=== PATIENT | female | born 1935 | race Caucasian/White ===

== ENCOUNTER 2020-06-26 06:48 | Observation (INO) | payer MEDICARE, SELFPAY ==
[2020-06-26] VITALS (9 sets, daily range): BP systolic 125–151; BP diastolic 44–53; PULSE 70–80; RESP 16–19; TEMP 36.4–37.7; O2SAT 93–97; BMI 43.1
--- NOTE | 2020-06-26 06:56 | CT_ITS ---
EXAMINATION: CT HIP WITHOUT CONTRAST, LEFT CLINICAL INFORMATION: Fall and pain. COMPARISON: None TECHNIQUE: Multidetector volumetric CT acquisition of the left hip was obtained from the mid pelvis to the subtrochanteric proximal femur with sagittal and coronal reformations obtained. This CT examination was performed using dose optimization techniques as appropriate, variously including the following: *Automated exposure control *Adjustment of mA and/or kV according to patient size (this includes techniques or standardized protocols for targeted exams where dose is matched to indication/reason for exam; i.e. extremities or head) *Use of iterative reconstruction technique DLP: 249 mGy-cm FINDINGS: BONES: Evaluation is difficult given degree of osteopenia with accentuation of the trabecular markings. There is a suspicion of a subtle nondisplaced hairline fracture at the left femoral neck/posterior femoral head, best seen on axial series 2, image 42. This is difficult to confirm on the additional series. There is only a trace amount of fluid in the hip joint, likely physiologic. No significant hip joint effusion or surrounding soft tissue fat stranding/edema is noted. A subtle cortical irregularity at the anterior basicervical neck region is felt to represent mild degenerative change. There are degenerative changes in the left sacroiliac joint, at the pubic symphysis, and left hip joint. OTHER: Sigmoid colonic diverticulosis partially included. Bladder decompressed and suboptimally assessed, but grossly unremarkable to the extent seen. Included uterine contour is difficult to separate from adjacent small bowel loops and is not adequately assessed. No pelvic free fluid or left inguinal/left pelvic sidewall adenopathy.. CT/CT hip LT wo con IMPRESSION: Difficult exam due to degree of osteopenia. There is suspicion of a subtle nondisplaced hairline fracture at the left femoral neck/posterior femoral head region. Recommend follow-up MRI scan of the left hip to confirm this impression.
--- NOTE | 2020-06-26 07:04 | ED_ITS ---
HPI - Fall General Chief Complaint: Fall Stated Complaint: fall Time Seen by Provider: 06/26/20 06:55 Source: patient and testing and regulating chief Mode of arrival: EMS Limitations: no limitations History of Present Illness HPI Narrative: 84-year-old female brought in by ambulance, patient ruled out of bed yesterday, according to the patient's story patient was able to ambulate yesterday, but this morning patient is complaining of severe pain in the left hip area and unable to bear weight and ambulate. complaint: fall Onset (ago): hour(s) (14) Fall from: out of bed Fall witnessed: yes, by family Place fall occurred: home Loss of consciousness: none Prolonged down time: unclear Symptoms prior to fall: none Related Data Allergies Allergy/AdvReac Type Severity Reaction Status Date / Time Fish Containing Products Allergy Mild RASH Unverified 05/13/20 15:54 Penicillins Allergy Mild RASH Unverified 05/13/20 15:54 seafood Allergy Unknown Uncoded 06/10/19 00:00 Review of Systems Review of Systems: All other systems are reviewed and are negative Constitutional: Reports as per HPI and Reports no additional constitutional complaints Eyes: Reports as per HPI and Reports no additional eye complaints Reports system reviewed and no additional complaints, except as documented Cardiovascular: Reports as per HPI and Reports no additional cardiovascular complaints Respiratory: Reports as per HPI and Reports no additional respiratory complaints Gastrointestinal: Reports as per HPI and Reports no additional gastrointestinal complaints Genitourinary: Reports no additional female genitourinary complaints Musculoskeletal: Reports no additional musculoskeletal complaints Skin/Breast: Reports system reviewed and no additional complaints, except as docu Psychiatric: Reports no additional psychiatric complaints Endocrine: Reports no additional endocrine complaints Hematologic/Lymphatic: Reports no additional hematologic/lymphatic complaints Allergic/Immunologic: Reports no additional allergic/immunologic complaints Reports system reviewed and no additional complaints, except as documented and Reports Abnormal speech present [facility] Social History Social History Alcohol intake: never Smoking Status: Never smoker Smoked in Last 30 Days: No Use of substances other than those prescribed or required for medical reasons: No Advance Directives: No Advance Directives Information Provided: No Physical Exam Vital Signs: Vital Signs: Vital Signs Temp Pulse Resp BP Pulse Ox 06/26/20 10:00 70 16 97 06/26/20 06:57 74 16 142/53 H 94 06/26/20 06:54 98.9 F 77 16 142/53 H 94 Body Mass Index 43.1 vital signs have been reviewed as normal and appeared to be correct. Blood pressure Slightly elevated. Heart rate normal. Respiration rate normal. Temperature normal. Oxygen saturation normal. Appearance: Alert. Oriented X3. No acute distress. Head: Normal external exam. Normocephalic. Atraumatic. No Mitchell signs noted. No raccoon eyes noted Eyes: PERRLA. EOMI. Conjunctiva and sclera normal. Eyelids normal. ENT: EAC normal. TM's Normal. Pharynx normal. Uvula midline. Moist mucous membranes. No trismus noted. No drooling noted. No muffled voice noted. Neck: Normal inspection. Neck supple. FROM. No adenopathy. Thyroid Normal. No meningeal signs. No neck mass noted. CVS: Normal heart rate and rhythm. Heart sound normal. No murmurs noted. Pulses normal throughout. Respiratory: No respiratory distress. Painless inspiration. Breath sounds normal. No wheezes/rales/rhonchi noted. Chest nontender. No accessory muscle usage noted or decreased air movement noted. Abdomen: Soft and nontender. Bowel sounds normal in all 4 quadrants. No distention noted. No organomegaly noted. No visible injury noted. Back: No CVA tenderness. Full range of motion noted. Skin: Skin warm and dry. Normal skin color. Normal skin turgor. No rashes/lesions/lacerations noted. Extremities: No lower extremity edema. Extremities exhibit normal range of motion. Left hip mild tenderness, no deformity, no leg rotation, neurovascularly intact. Neuro: Oriented X 3. No motor deficit. No sensory deficit. Reflexes normal. Course Course Course Narrative: 84 years old female who sustained a mechanical fall from bed yesterday, As reported by the patient no head injury, no neck pain, not taking blood thinner.patient initially was able to ambulate but this morning due to severe pain in the left side she is not able to ambulate. Because the patient heavyset and difficult to get x-ray will consider CT of the pelvis and left hip, there is a question from the family of UTI will check urine. Will reassess. MDM - Fall MDM Narrative Medical decision making narrative: assessment and plan. 84-year-old female sustained mechanical fall yesterday, presented with left hip pain and unable to bear weight, CT of the hip and pelvis suspicious for hairline fracture of her left femoral neck, the case discussed with orthopedic on-call CAMRON Amaya/Dr. Pedraza who reviewed the x-ray CT recommended to admit to Medicine with orthopedic consultation. Patient complained of some burning sensation with odor urine, UA is showing UTI, will start patient on ceftriaxone. Lab Data Result diagrams: 06/26/20 07:49 06/26/20 07:49 Labs: Lab Results 06/26/20 06/26/20 06/26/20 Range/Units 07:45 07:49 07:49 WBC 11.2 H (4.8-10.8) X10*3/uL RBC 3.95 L (4.20-5.50) X10*6/uL Hgb 11.2 L (12.0-16.0) g/dl Hct 35.0 L (37-47) % MCV 88.6 (80-98) fL MCH 28.4 (27.0-33.0) pg MCHC 32.0 (31.0-35.0) g/dl RDW 14.0 (11.0-16.0) % Plt Count 232 (160-400) X10*3/uL MPV 11.3 (9.4-12.3) fL Immature Gran % (Auto) 0.7 H (0.0-0.4) % Neut % (Auto) 77.2 H (45-73) % Lymph % (Auto) 14.9 L (20-40) % [place] % (Auto) 7.1 (2-11) % Eos % (Auto) 0.1 (0-4) % Baso % (Auto) 0.0 (0-2) % Lymph # (Auto) 1.7 (1.2-4.9) X10*3/uL [place] # (Auto) 0.8 (0.1-1.2) X10*3/uL Eos # (Auto) 0.0 (0.0-0.4) X10*3/uL Baso # (Auto) 0.0 (0.0-0.2) X10*3/uL Abs Immat Gran (auto) 0.08 H (0.00-0.03) X10*3/uL Absolute Neuts (auto) 8.7 H (2.0-8.3) X10*3/uL Absolute Nucleated RBC 0.000 (0.0-0.012) X10*3/uL Nucleated RBC % (auto) 0.0 (0.0-0.2) /100WBC Sodium 139 (135-145) mmol/L Potassium 4.2 (3.3-5.1) mmol/l Chloride 105 (96-108) mmol/L Carbon Dioxide 26 (22-29) mmol/L Anion Gap 12 (12-20) BUN 13 (9-16) mg/dL Creatinine 0.90 (0.5-1.4) mg/dL Estim Creat Clear Calc 50.3 Estimated GFR 60 Random Glucose 119 H (60-115) mg/dL Calcium 7.2 L (8.4-10.2) mg/dL Urine Color YELLOW Urine Appearance HAZY Urine pH 5.5 (5.0-8.0) Ur Specific [place] >= 1.030 H (1.005-1.025) Urine Protein 2+ H (NEG-TRACE) MG/DL Urine Glucose (UA) NEG (NEG) MG/DL Urine Ketones NEG (NEG) MG/DL Urine Blood 1+ H (NEG) Urine Nitrite POS H (NEG) Ur Leukocyte Esterase NEG (NEG) Urine RBC 1-4 (0) /HPF Urine WBC 5-9 H (0-4) /HPF Ur Squamous Epith Cells 1+ /LPF Urine Bacteria 3+ /LPF Hyaline Casts 1-4 /LPF Granular Casts 1-4 /LPF Imaging Data Pelvis/left hip CT: Radiologist's impression: Difficult exam due to degree of osteopenia. There is suspicion of a subtle nondisplaced hairline fracture at the left femoral neck/posterior femoral head region. Recommend follow-up MRI scan of the left hip to confirm this impression. Discharge Plan Discharge Clinical Impression: Fall Qualifiers: Encounter type: initial encounter Qualified Code(s): W19.XXXA - Unspecified fall, initial encounter Closed fracture of left hip Qualifiers: Encounter type: initial encounter Qualified Code(s): S72.002A - Fracture of unspecified part of neck of left femur, initial encounter for closed fracture Patient Disposition: Admitted As Inpatient
[2020-06-26 07:56] LABS: MANUAL DIFF FLAG NO
[2020-06-26 07:58] LABS: Eosinophils Percent Auto 0.1 % (0-4); Hemoglobin 11.2 g/dl (12.0-16.0); Imm Gran Abs Auto 0.08 X10*3/uL (0.00-0.03); Imm Gran Pct Auto 0.7 % (0.0-0.4); Lymphocytes Absolute Auto 1.7 X10*3/uL (1.2-4.9); Lymphocytes Percent Auto 14.9 % (20-40); Mean Corpuscular Hemoglobin 28.4 pg (27.0-33.0); Mean Corpuscular Volume 88.6 fL (80-98); Mean Platelet Volume 11.3 fL (9.4-12.3); Monocytes Absolute Auto 0.8 X10*3/uL (0.1-1.2); Monocytes Percent Auto 7.1 % (2-11); Neutrophils Absolute Auto 8.7 X10*3/uL (2.0-8.3); Neutrophils Percent Auto 77.2 % (45-73); Platelet Count 232 X10*3/uL (160-400); Red Blood Count 3.95 X10*6/uL (4.20-5.50); White Blood Count 11.2 X10*3/uL (4.8-10.8)
[2020-06-26 08:01] LABS: Glucose Urine UA NEG (NEG); Leukocyte Esterase Urine NEG (NEG); Nitrite Urine POS (NEG); PH 5.5 (5.0-8.0); Specific Gravity - Urine >= 1.030 (1.005-1.025); Urine Blood 1+ (NEG); Urine Ketones NEG (NEG); Urine Protein 2+ MG/DL (NEG-TRACE)
[2020-06-26 08:06] LABS: Appearance Urine HAZY; Color Urine YELLOW
[2020-06-26 08:17] LABS: Anion Gap 12 (12-20); Blood Urea Nitrogen 13 mg/dL (9-16); Calcium 7.2 mg/dL (8.4-10.2); Carbon Dioxide 26 mmol/L (22-29); Chloride 105 mmol/L (96-108); Creatinine Clr Calc Pharmacy 50.3; Estimated Glomerular Filt Rate 60; Glucose Random 119 mg/dL (60-115); Potassium 4.2 mmol/l (3.3-5.1); Sodium 139 mmol/L (135-145)
[2020-06-26 08:21] LABS: Bacteria Urine 3+ /LPF; Squamous Epithelial Cell Urine 1+ /LPF
--- NOTE | 2020-06-26 09:18 | XR_ITS ---
EXAMINATION: XR HIP, LEFT CLINICAL INFORMATION: Fall. Question of left hip fracture. COMPARISON: CT scan of the left hip performed earlier same day TECHNIQUE: Two views of the left hip. Single view of the pelvis FINDINGS: Left hip: No fracture identified. Mild arthrosis with mild joint space narrowing and small subchondral cyst in the superior acetabulum. Surrounding soft tissues unremarkable. Pelvis: Left hip as above. Remaining bones and joints and soft tissues in the pelvis are normal. There is spondylosis of the partially visualized lumbar sacral spine with degenerative disc changes and facet arthrosis XR/XR hip LT w PEL1V IMPRESSION: The prior CT is also reviewed. I do not see a fracture on the radiograph. There is mild arthrosis of the left hip If there continues to be clinical suspicion for fracture consider follow-up MRI to confirm the subtle findings on CT. No acute abnormality of the pelvis. Spondylosis of the partially visualized lumbar sacral spine.
[2020-06-26] MEDS: cefTRIAXone sodium 1 GM in 0.9 % Sodium Chloride 50 ML IV (12:17)
--- NOTE | 2020-06-26 13:21 | PM.IMHP ---
History of Present Illness Date of Service: 06/26/20 Chief Complaint: Fall and Hip pain 84 year old female with HLD on Lipitor, HTN on Diltiazem and Lisinopril, also on Lasix for possible heart failure, seizure desorder on Keppra. She fell yesterday and was not having pain but today started having pain that is severe xray and CT both show no fracture PMFSH Medical History HLD (hyperlipidemia) HTN (hypertension) Overactive bladder Family History Other Diabetes Social History Alcohol intake: never Smoking Status: Never smoker Smoked in Last 30 Days: No Patient Interested in Nicotine Replacement: No Patient Given Instructions on How to Stop Smoking: No Second Hand Smoke Exposure: No Use of substances other than those prescribed or required for medical reasons: No Advance Directives: No Advance Directives Information Provided: No Meds Allergies Allergy/AdvReac Type Severity Reaction Status Date / Time Fish Containing Products Allergy Mild RASH Verified 06/26/20 22:27 Penicillins Allergy Mild RASH Verified 06/26/20 22:27 seafood Allergy Mild Rash Uncoded 06/26/20 22:27 Home Medications Medication Instructions Recorded Confirmed Type Artificial Tears([id number]) 1 drp OPHTHALMIC (EYE) BID-TID 06/26/20 06/26/20 History Myrbetriq 1 tab PO DAILY 06/26/20 06/26/20 History atorvastatin 1 tab PO DAILY 06/26/20 06/26/20 History diltiazem HCl 1 cap PO DAILY 06/26/20 06/26/20 History furosemide 1 tab PO BID 06/26/20 06/26/20 History levetiracetam 1 tab PO BID 06/26/20 06/26/20 History lisinopril 1 tab PO DAILY 06/26/20 06/26/20 History Physical Exam Vital Signs and Narrative: Vital Signs: Last Vital Signs Temp 98.2 F 06/26/20 12:00 Pulse 74 06/26/20 12:00 Resp 16 06/26/20 12:00 BP 131/53 L 06/26/20 12:00 Pulse Ox 97 06/26/20 12:00 Body Mass Index 43.1 Results Labs Labs: Laboratory Tests 06/26/20 06/26/20 06/26/20 07:45 07:49 07:49 WBC 11.2 H RBC 3.95 L Hgb 11.2 L Hct 35.0 L MCV 88.6 MCH 28.4 MCHC 32.0 RDW 14.0 Plt Count 232 MPV 11.3 Immature Gran % (Auto) 0.7 H Neut % (Auto) 77.2 H Lymph % (Auto) 14.9 L [place] % (Auto) 7.1 Eos % (Auto) 0.1 Baso % (Auto) 0.0 Lymph # (Auto) 1.7 [place] # (Auto) 0.8 Eos # (Auto) 0.0 Baso # (Auto) 0.0 Abs Immat Gran (auto) 0.08 H Absolute Neuts (auto) 8.7 H Absolute Nucleated RBC 0.000 Nucleated RBC % (auto) 0.0 Sodium 139 Potassium 4.2 Chloride 105 Carbon Dioxide 26 Anion Gap 12 BUN 13 Creatinine 0.90 Estim Creat Clear Calc 50.3 Estimated GFR 60 Random Glucose 119 H Calcium 7.2 L Urine Color YELLOW Urine Appearance HAZY Urine pH 5.5 Ur Specific [place] >= 1.030 H Urine Protein 2+ H Urine Glucose (UA) NEG Urine Ketones NEG Urine Blood 1+ H Urine Nitrite POS H Ur Leukocyte Esterase NEG Urine RBC 1-4 Urine WBC 5-9 H Ur Squamous Epith Cells 1+ Urine Bacteria 3+ Hyaline Casts 1-4 Granular Casts 1-4 Assessment and Plan (1) HLD (hyperlipidemia): Status: Acute (2) HTN (hypertension): Status: Inactive (3) Overactive bladder: Status: Inactive (4) Fall: Qualifiers: Encounter type: initial encounter Qualified Code(s): W19.XXXA - Unspecified fall, initial encounter Status: Acute (5) Closed fracture of left hip: Qualifiers: Encounter type: initial encounter Qualified Code(s): S72.002A - Fracture of unspecified part of neck of left femur, initial encounter for closed fracture Status: Acute (6) Acute UTI: Status: Acute 84 year female with fall and left hairline hip fracture on CT 1. Suspected Left hairline hip fracture -Pain controll -Ortho consult -May need MRI to further eval 2. HTN--continue Lisinopril and Diltiazem 3. HLD--Lipitor 4. Overactive bladder--Myrbetriq 5.
--- NOTE | 2020-06-26 15:25 | PC.NURSE ---
pt offers no complaints at this time. awaiting bed assignment.
[2020-06-26] MEDS: 0.9 % Sodium Chloride Flush 3 ML SYRINGE IVFLUSH ×2 (18:46→20:54)
[2020-06-26] MEDS: levETIRAcetam 500 MG TABLET PO (20:41)
[2020-06-26] MEDS: Heparin Sodium,Porcine 5,000 UNIT/ML VIAL 5000 UNIT SUBCUT (20:42)
[2020-06-26] MEDS: Furosemide 40 MG TABLET PO (20:42)
[2020-06-26] MEDS: Flu Vacc QS2020-21(6mos up)/PF 0.5 ML SYRINGE IM (20:44)
[2020-06-26] MEDS: Artificial Tears 15 ML DROPS 1 DROP EYE-BOTH (22:19)
[2020-06-27 03:30] VITALS: BP 142/59; PULSE 80; RESP 19; TEMP 36.7; O2SAT 96
[2020-06-27] MEDS: 0.9 % Sodium Chloride Flush 3 ML SYRINGE IVFLUSH ×3 (07:29→20:47)
[2020-06-27 08:00] VITALS: BP 136/58; PULSE 80; RESP 16; TEMP 36.9; O2SAT 94
[2020-06-27 08:46] VITALS: BP 136/58; PULSE 80
[2020-06-27] MEDS: lisinopriL 40 MG TABLET PO (08:46)
[2020-06-27] MEDS: Mirabegron 25 MG TAB.ER.24H PO (08:46)
[2020-06-27] MEDS: Atorvastatin Calcium 20 MG TABLET PO (08:46)
[2020-06-27] MEDS: dilTIAZem HCL CD 180 MG CAP.ER.24H 360 MG PO (08:46)
[2020-06-27] MEDS: Heparin Sodium,Porcine 5,000 UNIT/ML VIAL 5000 UNIT SUBCUT ×2 (08:46→19:12)
[2020-06-27] MEDS: Artificial Tears 15 ML DROPS 1 DROP EYE-BOTH ×3 (08:47→20:46)
[2020-06-27] MEDS: Furosemide 40 MG TABLET PO ×2 (08:47→20:46)
[2020-06-27] MEDS: levETIRAcetam 500 MG TABLET PO ×2 (08:47→20:46)
[2020-06-27 12:00] VITALS: BP 140/57; PULSE 74; RESP 16; TEMP 37.1; O2SAT 91
--- NOTE | 2020-06-27 13:01 | HO.PM.IMPN ---
Subjective Subjective Date of Service: 06/27/20 Interval History: some pain, but dont need pain med adjustement Cardiovascular Cardiovascular: Reports no additional cardiovascular complaints Respiratory Respiratory: Reports no additional respiratory complaints Physical Exam Vital Signs: Vital Signs: Vital Signs Temp Pulse Resp BP Pulse Ox 06/27/20 12:00 98.8 F 74 16 140/57 H 91 L 06/27/20 08:46 80 136/58 L 06/27/20 08:00 98.4 F 80 16 136/58 L 94 06/27/20 03:30 98.1 F 80 19 142/59 H 96 06/26/20 23:24 97.6 F 80 19 151/46 H 94 06/26/20 20:00 98.6 F 80 16 125/50 L 93 06/26/20 15:21 99.9 F 06/26/20 15:20 80 16 141/44 H 94 Body Mass Index 43.1 General: AO X 3, no acute distress Resp: CTA bilateral CVS: S1,S2,RRR GI: soft, non tender, non distended Neuro: motor grossly intact Psych: appropriate affect Objective Data Current Medications Generic Name Dose Route Start Last Admin Trade Name Freq PRN Reason Stop Dose Admin Acetaminophen 650 mg 06/26/20 18:07 Acetaminophen Supp 650 Mg Supp.Rect [place] Q6H PRN Pain, Mild (Pain Scale 1-3) Artificial Tears 1 drop 06/26/20 21:00 06/27/20 08:47 Artificial Tears 15 Ml Drops EYE-BOTH 1 drop TID LUIS ARMANDO Administration Atorvastatin Calcium 20 mg 06/27/20 09:00 06/27/20 08:46 Atorvastatin Calcium 20 Mg Tablet PO 20 mg DAILY LUIS ARMANDO Administration Diltiazem HCl 360 mg 06/27/20 09:00 06/27/20 08:46 Diltiazem Hcl Cd 180 Mg Cap.Er.24h PO 360 mg DAILY LUIS ARMANDO Administration Furosemide 40 mg 06/26/20 21:00 06/27/20 08:47 Furosemide 40 Mg Tablet PO 40 mg BID LUIS ARMANDO Administration Protocol Heparin Sodium (Porcine) 5,000 unit 06/26/20 20:00 06/27/20 08:46 Heparin Sodium,Porcine 5,000 Unit/Ml Vial SUBCUT 5,000 unit Q12H LUIS ARMANDO Administration Levetiracetam 500 mg 06/26/20 21:00 06/27/20 08:47 Levetiracetam 500 Mg Tablet PO 500 mg BID LUIS ARMANDO Administration Lisinopril 40 mg 06/27/20 09:00 06/27/20 08:46 Lisinopril 40 Mg Tablet PO 40 mg DAILY LUIS ARMANDO Administration Protocol Magnesium Hydroxide 30 ml 06/26/20 18:07 Milk Of Magnesia 30 Ml Oral.Susp PO DAILY PRN Constipation Mirabegron 25 mg 06/27/20 09:00 06/27/20 08:46 Mirabegron 25 Mg Tab.Er.24h PO 25 mg DAILY LUIS ARMANDO Administration Sodium Chloride 3 ml 06/26/20 18:07 06/27/20 07:29 0.9 % Sodium Chloride Flush 3 Ml Syringe IVFLUSH 3 ml QSHIFT LUIS ARMANDO Administration Labs CBC & Chem 7: 06/26/20 07:49 06/26/20 07:49 Microbiology Microbiology Results: Microbiology 06/26/20 Unknown Urine Catheterized - Straight Catheter Urine Culture - Preliminary Gram negative leticia Assessment and Plan (1) HLD (hyperlipidemia): Status: Acute (2) HTN (hypertension): Status: Inactive (3) Overactive bladder: Status: Inactive (4) Fall: Status: Acute (5) Closed fracture of left hip: Status: Acute (6) Acute UTI: Status: Acute Assessment and Plan: 84 year female with fall and left hairline hip fracture on CT Suspected Left hairline hip fracture -Pain controll -Ortho consult -May need MRI to further eval nwb for now HTN--continue Lisinopril and Diltiazem HLD--Lipitor Overactive bladder--Myrbetriq
[2020-06-27 15:30] VITALS: BP 146/58; PULSE 75; RESP 17; TEMP 36.3; O2SAT 92
[2020-06-27 19:27] VITALS: BP 127/56; PULSE 79; RESP 18; TEMP 36.3; O2SAT 94
[2020-06-28] VITALS (8 sets, daily range): BP systolic 134–164; BP diastolic 54–64; PULSE 66–78; RESP 18–19; TEMP 36.4–37.2; O2SAT 92–98; BMI 43.1
--- NOTE | 2020-06-28 | MR_ITS ---
EXAMINATION: MR HIP WITHOUT CONTRAST, LEFT CLINICAL INFORMATION: Hairline fracture. Fall. Left hip pain. COMPARISON: None TECHNIQUE: MRI of the left hip was obtained using routine sequences on a high-field magnet. FINDINGS: There is no abnormal signal seen within the left femoral head, neck, or the proximal segments to suspect any edema either from fracture or underlying inflammatory process. There is minimal joint fluid within normal limits. The femoral head is round with normal signal. No deformity involving the femoral head. The acetabulum has a normal signal without any fracture line. No abnormal signal is visualized within the labrum. Partially visualized right hip and the pelvis appear unremarkable. Soft tissues are normal. MR/MR hip LT wo con IMPRESSION: No visible left hip fracture or bone marrow edema seen. There is no dislocation either.
--- NOTE | 2020-06-28 | XR_ITS ---
EXAMINATION: XR SKULL CLINICAL INFORMATION: Evaluate for foreign body COMPARISON: Previous head CT April 2013 and brain MRA July 2014 TECHNIQUE: 5 views of the skull were obtained. FINDINGS: There is a radiopaque foreign body in the right perisellar region. This is unchanged from previous head CT April 2013 and is suggestive of aneurysm coil. No other radiopaque foreign body is seen. Bony structures are unremarkable. Visualized sinuses are clear. 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
[2020-06-28] MEDS: 0.9 % Sodium Chloride Flush 3 ML SYRINGE IVFLUSH ×3 (07:12→23:46)
[2020-06-28] MEDS: Mirabegron 25 MG TAB.ER.24H PO (07:12)
[2020-06-28] MEDS: lisinopriL 40 MG TABLET PO (07:13)
[2020-06-28] MEDS: Atorvastatin Calcium 20 MG TABLET PO (07:13)
[2020-06-28] MEDS: levETIRAcetam 500 MG TABLET PO ×2 (07:13→20:18)
[2020-06-28] MEDS: dilTIAZem HCL CD 180 MG CAP.ER.24H 360 MG PO (07:14)
[2020-06-28] MEDS: Heparin Sodium,Porcine 5,000 UNIT/ML VIAL 5000 UNIT SUBCUT ×2 (07:14→20:17)
[2020-06-28] MEDS: Artificial Tears 15 ML DROPS 1 DROP EYE-BOTH ×3 (07:15→20:19)
[2020-06-28] MEDS: Furosemide 40 MG TABLET PO ×2 (07:16→20:18)
--- NOTE | 2020-06-28 09:26 | MHC.CM.PN ---
CONVERSATION WITH DAUGHTER (VIA [employer]) PATIENT LIVES WITH SPOUSE, AND HAS A CONCRETE ENGINEERING TECHNICIAN DIRECTOR PAID MEDIA. PATIENT RELIES ON A WALKER AND CANE. RN VISITS OCCUR [id number], OR OVER THE PHONE NEEDED. SON (DIRECTOR PAID MEDIA) DRIVES FOR PATIENT. HUNTER DISCUSSED OVER PHONE. COPY LEFT WITH PATIENT WITH PERMISSION. CONTACT CARD FOR THIS SALES SUPERINTENDENT LEFT IN THE EVENT THAT THERE ARE ADDITIONAL QUESTIONS. CASE MANAGEMENT FOLLOWING FOR DC PLANS. HUNTER 06/28 IN CHART. IMM ADDENDUM COMPLETED BUT DONE IN ERROR, PATIENT IS OBSERVATION STATUS
--- NOTE | 2020-06-28 09:33 | HO.PM.IMPN ---
Subjective Subjective Date of Service: 06/28/20 Interval History: no complaints Physical Exam Vital Signs: Vital Signs: Vital Signs Temp Pulse Resp BP Pulse Ox 06/28/20 07:35 97.6 F 71 18 136/56 L 93 06/28/20 03:43 98.5 F 71 18 143/56 H 93 06/28/20 00:00 97.8 F 78 18 151/58 H 92 06/27/20 19:27 97.3 F 79 18 127/56 L 94 06/27/20 15:30 97.4 F 75 17 146/58 H 92 06/27/20 12:00 98.8 F 74 16 140/57 H 91 L Body Mass Index 43.1 General: AO X 3, no acute distress Resp: CTA bilateral CVS: S1,S2,RRR GI: soft, non tender, non distended Neuro: motor grossly intact Psych: appropriate affect Objective Data Current Medications Generic Name Dose Route Start Last Admin Trade Name Freq PRN Reason Stop Dose Admin Acetaminophen 650 mg 06/26/20 18:07 Acetaminophen Supp 650 Mg Supp.Rect [place] Q6H PRN Pain, Mild (Pain Scale 1-3) Artificial Tears 1 drop 06/26/20 21:00 06/28/20 07:15 Artificial Tears 15 Ml Drops EYE-BOTH 1 drop TID LUIS ARMANDO Administration Atorvastatin Calcium 20 mg 06/27/20 09:00 06/28/20 07:13 Atorvastatin Calcium 20 Mg Tablet PO 20 mg DAILY LUIS ARMANDO Administration Diltiazem HCl 360 mg 06/27/20 09:00 06/28/20 07:14 Diltiazem Hcl Cd 180 Mg Cap.Er.24h PO 360 mg DAILY LUIS ARMANDO Administration Furosemide 40 mg 06/26/20 21:00 06/28/20 07:16 Furosemide 40 Mg Tablet PO 40 mg BID LUIS ARMANDO Administration Protocol Heparin Sodium (Porcine) 5,000 unit 06/26/20 20:00 06/28/20 07:14 Heparin Sodium,Porcine 5,000 Unit/Ml Vial SUBCUT 5,000 unit Q12H LUIS ARMANDO Administration Levetiracetam 500 mg 06/26/20 21:00 06/28/20 07:13 Levetiracetam 500 Mg Tablet PO 500 mg BID LUIS ARMANDO Administration Lisinopril 40 mg 06/27/20 09:00 06/28/20 07:13 Lisinopril 40 Mg Tablet PO 40 mg DAILY LUIS ARMANDO Administration Protocol Magnesium Hydroxide 30 ml 06/26/20 18:07 Milk Of Magnesia 30 Ml Oral.Susp PO DAILY PRN Constipation Mirabegron 25 mg 06/27/20 09:00 06/28/20 07:12 Mirabegron 25 Mg Tab.Er.24h PO 25 mg DAILY LUIS ARMANDO Administration Sodium Chloride 3 ml 06/26/20 18:07 06/28/20 07:12 0.9 % Sodium Chloride Flush 3 Ml Syringe IVFLUSH 3 ml QSHIFT LUIS ARMANDO Administration Labs CBC & Chem 7: 06/26/20 07:49 06/26/20 07:49 Microbiology Microbiology Results: Microbiology 06/26/20 Unknown Urine Catheterized - Straight Catheter Urine Culture - Final Escherichia coli 06/26/20 12:16 Blood - Venous Blood Culture - Preliminary No growth after 24 hours. 06/26/20 11:40 Blood - Venous Blood Culture - Preliminary No growth after 24 hours. Assessment and Plan (1) HLD (hyperlipidemia): Status: Acute (2) HTN (hypertension): Status: Inactive (3) Overactive bladder: Status: Inactive (4) Fall: Status: Acute (5) Closed fracture of left hip: Status: Acute (6) Acute UTI: Status: Acute Assessment and Plan: 84 year female with fall and left hairline hip fracture on CT Suspected Left hairline hip fracture -Pain controledl -Ortho to see after mri complete, likely non operative, PT to see after ortho recs nwb for now HTN--continue Lisinopril and Diltiazem HLD--Lipitor Overactive bladder--Myrbetriq
--- NOTE | 2020-06-28 09:55 | MHC.CM.PN ---
nurse nanny caregiver note electronic medical record reviewed , patient came in under observation status , after fall at home . found to have hairine fracture, orthopedic surgical consult called for evauation , at this time patient is non weight bearing, after surgical evaluation physical thearpstist to further evaulate blood cultures negative , uribne culture eschericha colcontinue care nurse to continue ot follow for discharge needsi
--- NOTE | 2020-06-28 13:30 | PM.CNOR ---
History of Present Illness HPI Chief complaint: Hip pain Narrative: Ms. Scott is an 84 yo female who presented to the ED with left hip pain. She fell on 06/25/2020, xrays and CT scan in the ED negative for obvious fracture. She was admitted to the medical service for further evaluation and ortho consult. At bedside today, she denies hip pain, she c/o pain on the lateral aspect of the thigh. Review of Systems Review of Systems: Yes all other systems are reviewed and are negative PMFSH Past Medical History Medical History HLD (hyperlipidemia) HTN (hypertension) Overactive bladder Family History Family History Other Diabetes Social History Social History Alcohol intake: never Smoking Status: Never smoker Smoked in Last 30 Days: No Patient Interested in Nicotine Replacement: No Patient Given Instructions on How to Stop Smoking: No Second Hand Smoke Exposure: No Use of substances other than those prescribed or required for medical reasons: No Advance Directives: No Advance Directives Information Provided: No Meds Allergies Allergy/AdvReac Type Severity Reaction Status Date / Time Fish Containing Products Allergy Mild RASH Verified 06/26/20 22:27 Penicillins Allergy Mild RASH Verified 06/26/20 22:27 seafood Allergy Mild Rash Uncoded 06/26/20 22:27 Home Medications Medication Instructions Recorded Confirmed Type atorvastatin 1 tab PO DAILY 06/26/20 06/26/20 History diltiazem HCl 1 cap PO DAILY 06/26/20 06/26/20 History furosemide 1 tab PO BID 06/26/20 06/26/20 History levetiracetam 1 tab PO BID 06/26/20 06/26/20 History lisinopril 1 tab PO DAILY 06/26/20 06/26/20 History mirabegron [Myrbetriq] 1 tab PO DAILY 06/26/20 06/26/20 History peg [id number] 1 drp OPHTHALMIC (EYE) BID-TID 06/26/20 06/26/20 History [Artificial Tears([id number])] Physical Exam Vital Signs: Vital Signs: Vital Signs Temp Pulse Resp BP Pulse Ox 06/28/20 11:21 97.5 F 66 18 164/64 H 92 06/28/20 07:35 97.6 F 71 18 136/56 L 93 06/28/20 03:43 98.5 F 71 18 143/56 H 93 06/28/20 00:00 97.8 F 78 18 151/58 H 92 06/27/20 19:27 97.3 F 79 18 127/56 L 94 06/27/20 15:30 97.4 F 75 17 146/58 H 92 Body Mass Index 43.1 Const: General: cooperative, healthy appearing and no acute distress Resp: Effort & Inspection: normal respiratory effort and able to speak in complete sentences Cardio: Rate: regular rate Peripheral pulses: Peripheral pulses 2+ throughout GI: Inspection: Yes normal to inspection Palpation (GI): Soft to palpation Skin: General skin exam: no rashes or lesions noted Extrem: Other: Left hip skin intact. no tenderness along the anterior or lateral aspect of the hip. She is able to activlely flex the hip and flex and extend the knee. No pain with active or passive ROM of the hip or knee. No pain with log roll. xrays of the left hip: negative for fracture CT scan: Difficult exam due to degree of osteopenia. There is suspicion of a subtle nondisplaced hairline fracture at the left femoral neck/posterior femoral head region. Recommend follow-up MRI scan of the left hip to confirm this impression. Results Labs Result Diagrams: 06/26/20 07:49 06/26/20 07:49 Labs: H & H 06/26/20 Range/Units 07:49 Hgb 11.2 L (12.0-16.0) g/dl Hct 35.0 L (37-47) % All other labs normal. Assessment and Plan (1) Left hip pain: Status: Acute Reviewed the case with Dr Pedraza. Since she has no pain with ROM of the hip or palpation, less likely hip fracture. SPoke with Medicine MRI ordered. Will review once completed and come up with final plan. Until then NWB LLE. PROM and AAROM ok if pain free.
--- NOTE | 2020-06-28 15:16 | PC.NURSE ---
patient refused telesiter,family translated
--- NOTE | 2020-06-28 16:19 | MHC.CM.PN ---
THIS CHIEF INFORMATICS OFFICER MET WITH SON AND PATIENT (WITH PERMISSION) SON IS AWARE THAT PT EVALUATION RECOMMENDS INAPTIENT REHAB. SON FEELS THAT PATIENT WILL NOT STAY AT REHAB, AND WANTS TO TAKE THE PATIENT HOME WITH SERVICES. CASE MANAGEMENT TO REFER TO [facility] AT NEXT SHIFT (FOLLOWING MRI AND RESULTS)
[2020-06-29] VITALS (7 sets, daily range): BP systolic 122–143; BP diastolic 42–55; PULSE 71–77; RESP 19; TEMP 36.6–37; O2SAT 94–96
[2020-06-29] MEDS: Heparin Sodium,Porcine 5,000 UNIT/ML VIAL 5000 UNIT SUBCUT (07:11)
[2020-06-29] MEDS: 0.9 % Sodium Chloride Flush 3 ML SYRINGE IVFLUSH (07:11)
[2020-06-29] MEDS: Furosemide 40 MG TABLET PO (08:40)
[2020-06-29] MEDS: lisinopriL 40 MG TABLET PO (08:40)
[2020-06-29] MEDS: Mirabegron 25 MG TAB.ER.24H PO (08:40)
[2020-06-29] MEDS: levETIRAcetam 500 MG TABLET PO (08:40)
[2020-06-29] MEDS: Atorvastatin Calcium 20 MG TABLET PO (08:41)
[2020-06-29] MEDS: dilTIAZem HCL CD 180 MG CAP.ER.24H 360 MG PO (08:41)
[2020-06-29] MEDS: Artificial Tears 15 ML DROPS 1 DROP EYE-BOTH (08:41)
--- NOTE | 2020-06-29 10:53 | PM.DS ---
DS: Providers Provider Date of admission: 06/26/20 12:30 Primary care physician: Roslyn Rodriguez MD Consults: 06/26/20 12:30 Consult to Orthopedics Routine Consulting Provider: Donny Patel Reason for consultation: Hip pain Has provider been notified: Yes DS: Diagnosis Discharge Diagnosis (1) Left hip pain: Status: Acute DS: Summary Hospital Course Hospital Course: patient was admitted for fall and left hip pain and suspected left hip fracture. She was seen by Orthopedics who recommended MRI. MRI was done which showed no evidence of fracture. Therefore patient was cleared for ambulation. She will be discharged home and continue home PT. Time Spent with Patient Time attestation: Total time spent providing and/or coordinating discharge services: Physical Exam Vital Signs: Vital Signs: Vital Signs Temp Pulse Resp BP Pulse Ox 06/29/20 08:41 75 143/50 H 06/29/20 08:40 75 143/50 H 06/29/20 07:53 98.6 F 75 19 143/50 H 96 06/29/20 07:49 98.6 F 73 19 143/50 H 94 06/29/20 03:26 98.0 F 77 19 122/55 L 96 06/28/20 23:10 97.8 F 76 19 134/54 L 95 06/28/20 20:00 97.5 F 68 19 139/63 98 06/28/20 15:43 99.0 F 71 18 137/63 92 06/28/20 14:47 66 164/64 H 92 06/28/20 11:21 97.5 F 66 18 164/64 H 92 Body Mass Index 43.1 DS: Data Data Completed and Pending Labs on day of discharge: Preliminary micro results at discharge 06/26/20 12:16 Blood Culture - Preliminary Blood - Venous No growth after 48 hours. 06/26/20 11:40 Blood Culture - Preliminary Blood - Venous No growth after 48 hours. Discharge Plan Discharge Patient Disposition: Home Health Service Referrals: Roslyn Rodriguez MD [Primary Care Provider] - Discharge Medications: Continued furosemide 40 mg tablet 1 tab PO BID RF: 0 atorvastatin 20 mg tablet 1 tab PO DAILY RF: 0 levetiracetam 500 mg tablet 1 tab PO BID RF: 0 diltiazem HCl 360 mg capsule,extended release 24hr 1 cap PO DAILY RF: 0 lisinopril 40 mg tablet 1 tab PO DAILY RF: 0 Artificial Tears(vg-acxu-xxav) 1-0.2-0.2 % drops 1 drp ophthalmic (eye) BID-TID RF: 0 Myrbetriq 25 mg tablet extended release 24 hr 1 tab PO DAILY RF: 0 Discharge Orders: Discharge Order (Routine); Ordered 06/29/20 Ordered By: Jc Whitmore Diet: advance to your usual diet Activity on Discharge: As tolerated Visit Report Forms: Patient Portal Discharge page Care Plan Goals: recovery Health Concerns: falls, debnility Plan of Treatment: home pt
--- NOTE | 2020-06-29 11:51 | MHC.CM.PN ---
PATIENT IS ACCEPTED BY SARTHAK DUNBAR FOR RN AND PT SKILLS. MIKE OF [facility] ([phone]) GIVES AUTH.
--- NOTE | 2020-06-29 11:58 | P.F2F_ITS ---
Service Date Service Date: 06/29/20 Reasons for Services MD overseeing care: garfield forde Homebound: Leaving the home is medically contraindicated at this time without the asist of a device and/or another person due th the listed conditions above and below. Certification: Based on the above findings, I certify that this patient is confined to the home and needs intermittent residential care, physical therapy and/or speech therapy, or continues to need occupational therapy. The patient is under my care, and I have initiated the establishment of the plan of care. The patient will be followed by a physician who will periodically review the plan of care.
--- NOTE | 2020-06-29 12:26 | MHC.CM.PN ---
MESSAGE LEFT @ [phone] FOR A CALL BACK. [facility] CALLED AND ASKED FOR A RETURN CALL. CM NOW AWAITING CALL BACK TO ARRANGE TRANSPORT FOR PATIENT TO RETURN HOME RN AWARE OF ATTEMPTS.
--- NOTE | 2020-06-29 14:27 | MHC.CM.PN ---
CALL RECEIVED FROM KYE LYNCH ([phone]) [facility] ASKS THAT PATIENT BE TRANSPORTED HOME VIA [facility] RE[facility] FOR 16:00 TRANSPORT. RN AND UNIT AWARE OF PLAN.
== END 2020-06-29 16:50 | disposition home health service (06) ==
LOC: HO.ED 10:43 → HO.S3 19:41
PROVIDERS: Admitting Provider Internal Medicine; Emergency Provider Emergency Medicine; PCP Internal Medicine; Visit Provider Internal Medicine
DX: S72.002A Fracture of unspecified part of neck of left femur, initial encounter for closed fracture (principal); W06.XXXA Fall from bed, initial encounter; Y93.9 Activity, unspecified; Y92.003 Bedroom of unspecified non-institutional (private) residence as the place of occurrence of the external cause; Y99.8 Other external cause status; I72.9 Aneurysm of unspecified site; E78.5 Hyperlipidemia, unspecified; I10 Essential (primary) hypertension; N32.81 Overactive bladder; N39.0 Urinary tract infection, site not specified; M25.552 Pain in left hip; M47.818 Spondylosis without myelopathy or radiculopathy, sacral and sacrococcygeal region; Z88.0 Allergy status to penicillin; Z91.013 Allergy to seafood; Z79.899 Other long term (current) drug therapy; Z23 Encounter for immunization
CPT/HCPCS: 36415; 70250; 73502; 73700; 73721; 80048; 81001; 81003; 85025; 87040; 87086; 87088; 87186; 90471; 90686; 96365; 96372; 97116; 97162; 99218; 99285; J0696

== ENCOUNTER 2020-09-13 13:55 | Outpatient (REF) | payer MEDICARE, SELFPAY ==
--- NOTE | 2020-09-13 | US_ITS ---
EXAMINATION: US THYROID CLINICAL INFORMATION: Nontoxic multinodular goiter. COMPARISON: Ultrasound soft tissue head/neck thyroid dated 05/30/2013. TECHNIQUE: Linear transducer dang-scale and color Doppler examination with attention to the region of the thyroid. FINDINGS: SIZE: Measurements of the thyroid lobes and nodules are given in sagittal, anteroposterior and transverse dimensions respectively. Right Thyroid Lobe: 4.1 x 1.5 x 2.0 cm, volume 6.4 mL. Previously 5.0 x 1.8 x 2.4 cm, volume 11.3 mL. Parenchyma: The gland echotexture is homogeneous. Thyroid vascularity is normal. Left Thyroid Lobe: 4.5 x 2.6 x 2.3 cm, volume 14.1 mL. Previously 5.0 x 2.7 x 3.6 cm, volume 25.0 mL. Parenchyma: The gland echotexture is homogeneous. Thyroid vascularity is normal. Isthmus: 0.3 cm in maximum AP dimension. Previously 0.4 cm. RIGHT THYROID LOBE: There are 3 nodules seen. 1. Location: Superior/middle. Size: 0.5 x 0.3 x 0.5 cm. Previous: 0.8 x 0.5 x 0.6 cm. Nodule characteristics: Hypoechoic, smooth margin, no calcification and no intranodular flow. 2. Location: Middle. Size: 0.5 x 0.3 x 0.5 cm. Previous: 0.5 x 0.3 x 0.3 cm. Nodule characteristics: Hypoechoic and heterogeneous, smooth margin, no calcification and no intranodular flow. 3. Location: Middle. Size: 0.6 x 0.3 x 0.5 cm. This nodule is new. Nodule characteristics: Isoechoic, smooth margin with hypoechoic rind, no calcification and no intranodular flow. ISTHMUS: No nodules. LEFT THYROID LOBE: There are 3 nodules seen. 1. Location: Superior. Size: 0.4 x 0.4 x 0.3 cm. This nodule is new. Nodule characteristics: Hypoechoic, smooth margin, no calcification and no intranodular flow. 2. Location: Superior. Size: 0.4 x 0.4 x 0.3 cm. This nodule is new. Nodule characteristics: Hypoechoic, smooth margin, no calcification and no intranodular flow. 3. Location: Inferior. Size: 2.7 x 1.8 x 2.1 cm. Previous: 3.1 x 2 x 3.3 cm. Nodule characteristics: Hypoechoic and slightly heterogeneous, slightly lobulated margin, calcification and question peripheral flow. NODES: No lymphadenopathy is seen in the tissue surrounding the thyroid gland. US/US thyroid IMPRESSION: Enlarged left lobe. Slight interval decrease in size in the large dominant nodule in the inferior left lobe from 2013. There are 2 small newly appreciated nodules in the superior left lobe and mid right lobe. There are 2 small nodules in the right lobe that are unchanged.
== END 2020-09-13 13:56 | disposition home or self-care (01) ==
LOC: HO.US 13:55
PROVIDERS: Visit Provider Internal Medicine
DX: E04.2 Nontoxic multinodular goiter (principal)
CPT/HCPCS: 76536

== ENCOUNTER → 2021-01-12 13:07 | Outpatient (BNVA) | payer MEDICARE, SELFPAY | PROVIDERS: PCP Internal Medicine; Visit Provider Internal Medicine Endocrinology, Diabetes & Metabolism | DX: E04.2 Nontoxic multinodular goiter (principal); R89.9 Unspecified abnormal finding in specimens from other organs, systems and tissues | CPT/HCPCS: 99202 ==

== ENCOUNTER 2021-01-13 07:35 | Outpatient (REF) | payer MEDICARE, SELFPAY ==
[2021-01-13 09:27] LABS: Thyroid Stimulating Hormone 0.73 uIU/mL (0.32-4.0)
[2021-01-15 01:56] LABS: Thyroglobulin Antibodies <1 IU/mL (< or = 1); Thyroid Peroxidase Antibodies 1 IU/mL (<9)
== END 2021-01-13 07:36 | disposition home or self-care (01) ==
LOC: HO.LAB 07:35
PROVIDERS: PCP Internal Medicine; Visit Provider Internal Medicine Endocrinology, Diabetes & Metabolism
DX: E04.2 Nontoxic multinodular goiter (principal)
CPT/HCPCS: 36415; 84439; 84443; 86376; 86800

== ENCOUNTER 2021-01-27 07:32 | Outpatient (REF) | payer MEDICARE, SELFPAY ==
--- NOTE | 2021-01-27 08:41 | PM.OP ---
Brief Operative Note Date of Service: 01/27/21 Pre-op diagnosis: NON TOXIC MULTINODULAR GOITER Post-op diagnosis: same Procedure: This procedure was explained to the patient. Alternatives, risks and benefits were discussed. Written consent was obtained. After sterile preparation of the skin, fine-needle aspiration biopsy of left lower pole thyroid nodule size 2.7 x 1.8 x 2.1 cm was performed under direct ultrasound guidance to confirm accurate needle placement. Seven passes were performed with 27 gauge needles. Sample was submitted to cytology, initial cytology reading was adequate. Two passes were dedicated for Afirma genomic sequencing adzing and boring machine helper test. Patient tolerated procedure well. Aftercare instructions were provided. Impression: uncomplicated fine-needle aspiration biopsy of left lower pole thyroid nodule under direct ultrasound guidance. Surgeon: Demetria Hager MD Anesthesia: local (Lidocaine 1 % 1 ml) Was an Automobile Glass Technician used for this Procedure?: No Estimated blood loss (mL): 0 Condition: stable Disposition: same day
[2021-01-27] MEDS: Lidocaine HCl 1 % MPF 5 ML VIAL SUBCUT (10:17)
== END 2021-01-27 07:33 | disposition home or self-care (01) ==
LOC: HO.US 07:32
PROVIDERS: Visit Provider Internal Medicine Endocrinology, Diabetes & Metabolism
DX: E04.2 Nontoxic multinodular goiter (principal)
CPT/HCPCS: 10005; 88172; 88173; 88177

== ENCOUNTER → 2021-02-11 11:12 | Outpatient (BNVA) | payer MEDICARE, SELFPAY | PROVIDERS: PCP Internal Medicine; Visit Provider Internal Medicine Endocrinology, Diabetes & Metabolism | DX: E04.2 Nontoxic multinodular goiter (principal); R89.9 Unspecified abnormal finding in specimens from other organs, systems and tissues | CPT/HCPCS: 99212 ==

== ENCOUNTER 2021-02-24 07:57 | Outpatient (REF) | payer MEDICARE, SELFPAY ==
--- NOTE | 2021-02-24 10:09 | PM.OP ---
Brief Operative Note Date of Service: 02/24/21 Pre-op diagnosis: nontoxic multinodular goiter Post-op diagnosis: same Procedure: This procedure was explained to the patient. Alternatives, risks and benefits were discussed. Written consent was obtained. After sterile preparation of the skin, fine-needle aspiration biopsy of left thyroid nodule size 2.7 x 1.8 x 2.1 cm was performed under direct ultrasound guidance to confirm accurate needle placement. Four passes were performed with 25 gauge needles. Sample was submitted to cytology, initial cytology reading was nondiagnostic only blood. 2 extra passes were performed with 27 gauge needles, also nondiagnostic. One last pass was performed with a 22 gauge needle. Sample was placed on CytoLyte. Two passes were dedicated for Afirma genomic sequencing licensed therapist test. Patient tolerated procedure well. Aftercare instructions were provided. Impression: uncomplicated fine-needle aspiration biopsy of left thyroid nodule under direct ultrasound guidance. Surgeon: Demetria Hager MD Anesthesia: local ( Lidocaine 1%, 2 mL) Was an Control Panel Operator Crude Unit used for this Procedure?: No Estimated blood loss (mL): 0 Condition: stable Disposition: same day
== END 2021-02-24 07:58 | disposition home or self-care (01) ==
LOC: HO.US 07:57
PROVIDERS: PCP Internal Medicine; Visit Provider Internal Medicine Endocrinology, Diabetes & Metabolism
DX: E04.2 Nontoxic multinodular goiter (principal)
CPT/HCPCS: 10005; 88172; 88173; 88177; 88305

== ENCOUNTER 2021-03-27 13:21 | Emergency (ER) | payer MEDICARE, SELFPAY ==
--- NOTE | ~2021-03-27 | CT_ITS ---
EXAMINATION: CT ABDOMEN AND PELVIS WITHOUT CONTRAST CLINICAL INFORMATION: Right-sided pain with vomiting. COMPARISON: None TECHNIQUE: Multidetector volumetric imaging was performed from the superior aspect of the liver through the pubic symphysis. Sagittal and coronal reformatted images were obtained on the technologist's workstation. This CT examination was performed using dose optimization techniques as appropriate, variously including the following: *Automated exposure control *Adjustment of mA and/or kV according to patient size (this includes techniques or standardized protocols for targeted exams where dose is matched to indication/reason for exam; i.e. extremities or head) *Use of iterative reconstruction technique DLP: 888 mGy-cm FINDINGS: LUNG BASES: Mild dependent atelectasis. Left heart enlargement. Calcifications are present at the aortic and mitral valves. Small hiatal hernia. LIVER, GALLBLADDER, AND BILIARY TREE: The liver is normal in size, shape, and attenuation. No focal hepatic lesion or biliary ductal dilatation is present. The gallbladder is hydropic, measuring 5.5 cm transverse. A few lamellated gallstones are present, measuring up to 2 cm in diameter. No gallbladder wall thickening or surrounding pericholecystic fluid to suggest cholecystitis. No biliary ductal dilatation. PANCREAS: Unremarkable. SPLEEN: Unremarkable. 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 No follow-up imaging is recommended. KIDNEYS AND URETERS: There is a 2 mm calculus within a calyx at the left upper pole. No additional renal or ureteral calculi are identified. Mild multifocal renal cortical scarring of the left kidney. Right kidney is normal in size and cortical thickness. No suspicious renal lesions. BLADDER: Unremarkable. GASTROINTESTINAL TRACT: Small hiatal hernia. Multiple small duodenal diverticula are identified. Stomach, small bowel, and colon are normal in caliber. No appreciable bowel wall thickening. Appendix is normal. There is moderate colonic diverticulosis is most pronounced in the descending and sigmoid colon. No evidence of acute diverticulitis. Trace intraperitoneal free fluid at the inferior margin of the right hepatic lobe. No intraperitoneal free air. ABDOMINAL WALL: No significant hernia is appreciated. LYMPH NODES: Normal. VASCULAR: Atherosclerotic calcifications are present in the abdominal aorta and iliac arteries. No aneurysmal dilatation. PELVIC VISCERA: The uterus and adnexa are unremarkable. OSSEOUS STRUCTURES: Moderate multilevel degenerative disc disease is present in the thoracolumbar spine, most pronounced to S1 where there is grade 1 anterolisthesis of L5 on S1 and marked facet arthropathy. No acute fracture or malalignment. 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 CT/CT abdomen pelvis wo con IMPRESSION: 1. No acute abnormalities are identified in the abdomen and pelvis. The gallbladder is hydropic with associated cholelithiasis, though no specific findings of cholecystitis are identified. 2. Trace intraperitoneal free fluid. 3. Small hiatal hernia. 4. Colonic diverticulosis without evidence of acute diverticulitis. 5. Left heart enlargement.
[2021-03-27 14:25] VITALS: BP 160/53; PULSE 76; RESP 18; TEMP 36.6; O2SAT 97; BMI 41.8
[2021-03-27] MEDS: 0.9 % Sodium Chloride 1,000 ML 999 ML IVCONT (15:41)
[2021-03-27] MEDS: Morphine Sulfate 4 MG/ML CARTRIDGE IVPUSH (15:41)
[2021-03-27 15:45] LABS: Basophils Percent Auto 0.3 % (0-2); Eosinophils Percent Auto 0.1 % (0-4); Hematocrit 37.1 % (37-47); Hemoglobin 12.2 g/dl (12.0-16.0); Imm Gran Abs Auto 0.06 X10*3/uL (0.00-0.03); Imm Gran Pct Auto 0.6 % (0.0-0.4); Lymphocytes Absolute Auto 0.9 X10*3/uL (1.2-4.9); Lymphocytes Percent Auto 9.6 % (20-40); MANUAL DIFF FLAG NO; Mean Corpuscular HGB Conc 32.9 g/dl (31.0-35.0); Mean Corpuscular Hemoglobin 28.6 pg (27.0-33.0); Mean Corpuscular Volume 86.9 fL (80-98); Mean Platelet Volume 10.7 fL (9.4-12.3); Monocytes Absolute Auto 0.3 X10*3/uL (0.1-1.2); Monocytes Percent Auto 3.3 % (2-11); Neutrophils Absolute Auto 8.4 X10*3/uL (2.0-8.3); Neutrophils Percent Auto 86.1 % (45-73); Platelet Count 263 X10*3/uL (160-400); Red Blood Count 4.27 X10*6/uL (4.20-5.50); White Blood Count 9.8 X10*3/uL (4.8-10.8)
--- NOTE | 2021-03-27 15:45 | PC.NURSE ---
Tammi [phone] (pt's granddaughter)
[2021-03-27 16:13] VITALS: BP 142/50; PULSE 71; RESP 18; TEMP 36.6; O2SAT 96
[2021-03-27 16:14] LABS: Alanine Aminotransferase 22 U/L (0-31); Albumin Level 4.3 g/dL (3.5-5.0); Alkaline Phosphatase 93 U/L (39-117); Anion Gap 15 (12-20); Aspartate Amino Transferase 38 U/L (5-31); Bilirubin Total 0.6 mg/dL (0.0-1.0); Blood Urea Nitrogen 26 mg/dL (9-16); Calcium 9.3 mg/dL (8.4-10.2); Carbon Dioxide 23 mmol/L (22-29); Chloride 111 mmol/L (96-108); Creatinine Clr Calc Pharmacy 39.4; Estimated Glomerular Filt Rate 47; Glucose Random 127 mg/dL (60-115); Lipase 33 U/L (8-78); Potassium 4.5 mmol/L (3.3-5.1); Sodium 144 mmol/L (135-145)
--- NOTE | 2021-03-27 18:40 | ED.ABDPAIN ---
HPI - Abdominal Pain General Chief Complaint: Abdominal Pain Stated Complaint: vomiting Time Seen by Provider: 03/27/21 15:10 Source: patient and family Mode of arrival: ambulatory Limitations: language barrier History of Present Illness HPI narrative: Patient with no significant abdominal problems in the past has small umbilical hernia complaining of nausea vomiting since last night with pain right upper abdomen after vomiting no fever no chills, ++ slight dysuria. No blood in the stool patient vomited about 4 -5 times since last night now she is feeling better except for the nausea Related Data Home Medications Medication Instructions Recorded Confirmed furosemide 40 mg tablet 1 tab PO BID 06/26/20 02/11/21 levetiracetam 500 mg tablet 1 tab PO BID 06/26/20 02/11/21 lisinopril 40 mg tablet 1 tab PO DAILY 06/26/20 02/11/21 mirabegron 25 mg tablet,extended 1 tab PO DAILY 06/26/20 02/11/21 release 24 hr (Myrbetriq) peg [id number] 1 1 drp OPHTHALMIC (EYE) BID-TID 06/26/20 02/11/21 %-0.2 %-0.2 % eye drops (Artificial Tears ([id number])) acetaminophen 325 mg capsule 325 mg PO QID PRN 01/12/21 02/11/21 albuterol sulfate 90 mcg/actuation 2 puff INHALATION Q6H PRN 01/12/21 02/11/21 aerosol inhaler (ProAir HFA) atorvastatin 20 mg tablet 40 mg PO DAILY tab 01/12/21 02/11/21 calcium carbonate 500 mg (1,250 1 tab PO DAILY 01/12/21 02/11/21 mg)-vitamin D3 200 unit tablet clotrimazole 1 % topical cream appl TOPICAL 01/12/21 02/11/21 diltiazem HCl 360 mg 360 mg PO DAILY 01/12/21 02/11/21 capsule,extended release 24 hr ergocalciferol (vitamin D2) 1,250 1,250 mcg PO QWEEK 01/12/21 02/11/21 mcg (50,000 unit) capsule fluconazole 150 mg tablet 150 mg PO QWEEK 01/12/21 02/11/21 white petrolatum 51.1 % topical 1 appl TOPICAL DAILY 01/12/21 02/11/21 ointment (Balmex (petrolatum)) Previous Rx's Medication Instructions Recorded ondansetron 4 mg disintegrating 4 mg PO Q6-8H PRN #7 tab 03/27/21 tablet Allergies Allergy/AdvReac Type Severity Reaction Status Date / Time Fish Containing Products Allergy Mild RASH Verified 01/12/21 13:26 Penicillins Allergy Mild RASH Verified 01/12/21 13:26 seafood Allergy Mild Rash Uncoded 01/12/21 13:26 Review of Systems Review of Systems Yes all other systems are reviewed and are negative Physical Exam Vital Signs: Vital Signs: Last Vital Signs Temp 97.8 F 03/27/21 20:17 Pulse 90 03/27/21 20:17 Resp 18 03/27/21 20:17 BP 148/58 H 03/27/21 20:17 Pulse Ox 95 03/27/21 20:17 Body Mass Index 41.8 Appearance: Alert. Oriented X3. No acute distress. Eyes: PERRLA, normal conjunctivae and sclera ENT: Pharynx normal. Oral Mucosa moist Neck: Normal inspection. Neck supple. CVS: Normal heart rate and rhythm. Pulses normal. Respiratory: No respiratory distress. Equal air entry bilateral, no wheezing/rales/rhonchi Abdomen: Soft and nontender. Bowel sounds are present, no mass palpable, no CVA tenderness Skin: Skin warm and dry. Normal skin color. Normal skin turgor. Extremities: No lower extremity edema. No calf tenderness Neuro: Oriented X 3. MDM - Abdominal Pain Lab Data Attestation: I reviewed the patient's lab results. Result diagrams: 03/27/21 15:36 03/27/21 15:36 Labs: Lab Results 03/27/21 03/27/21 03/27/21 Range/Units 15:36 15:36 20:22 WBC 9.8 (4.8-10.8) X10*3/uL RBC 4.27 (4.20-5.50) X10*6/uL Hgb 12.2 (12.0-16.0) g/dl Hct 37.1 (37-47) % MCV 86.9 (80-98) fL MCH 28.6 (27.0-33.0) pg MCHC 32.9 (31.0-35.0) g/dl RDW 15.0 (11.0-16.0) % Plt Count 263 (160-400) X10*3/uL MPV 10.7 (9.4-12.3) fL Immature Gran % (Auto) 0.6 H (0.0-0.4) % Neut % (Auto) 86.1 H (45-73) % Lymph % (Auto) 9.6 L (20-40) % [place] % (Auto) 3.3 (2-11) % Eos % (Auto) 0.1 (0-4) % Baso % (Auto) 0.3 (0-2) % Lymph # (Auto) 0.9 L (1.2-4.9) X10*3/uL [place] # (Auto) 0.3 (0.1-1.2) X10*3/uL Eos # (Auto) 0.0 (0.0-0.4) X10*3/uL Baso # (Auto) 0.0 (0.0-0.2) X10*3/uL Abs Immat Gran (auto) 0.06 H (0.00-0.03) X10*3/uL Absolute Neuts (auto) 8.4 H (2.0-8.3) X10*3/uL Absolute Nucleated RBC 0.000 (0.0-0.012) X10*3/uL Nucleated RBC % (auto) 0.0 (0.0-0.2) /100WBC Sodium 144 (135-145) mmol/L Potassium 4.5 (3.3-5.1) mmol/L Chloride 111 H (96-108) mmol/L Carbon Dioxide 23 (22-29) mmol/L Anion Gap 15 (12-20) BUN 26 H D (9-16) mg/dL Creatinine 1.11 (0.5-1.4) mg/dL Estim Creat Clear Calc 39.4 Estimated GFR 47 Random Glucose 127 H (60-115) mg/dL Calcium 9.3 D (8.4-10.2) mg/dL Total Bilirubin 0.6 (0.0-1.0) mg/dL AST 38 H (5-31) U/L ALT 22 (0-31) U/L Alkaline Phosphatase 93 (39-117) U/L Total Protein 8.0 (6.5-8.0) g/dL Albumin 4.3 (3.5-5.0) g/dL Lipase 33 (8-78) U/L Urine Color YELLOW Urine Appearance CLEAR Urine pH 6.0 (5.0-8.0) Ur Specific [place] 1.025 (1.005-1.025) Urine Protein NEG (NEG-TRACE) MG/DL Urine Glucose (UA) NEG (NEG) MG/DL Urine Ketones NEG (NEG) MG/DL Urine Blood NEG (NEG) Urine Nitrite NEG (NEG) Ur Leukocyte Esterase NEG (NEG) Discharge Plan Discharge Clinical Impression: Gastroenteritis Patient Disposition: Home, Self-Care Instructions: Acute Nausea and Vomiting (ED) Additional Instructions: Drink plenty of fluids Meds for nausea as advised Report to the ER/PCp of not better Prescriptions: New ondansetron 4 mg tablet,disintegrating 4 mg PO Q6-8H PRN (Reason: nausea and vomiting) Qty: 7 RF: 0 No Action furosemide 40 mg tablet 1 tab PO BID RF: 0 levetiracetam 500 mg tablet 1 tab PO BID RF: 0 lisinopril 40 mg tablet 1 tab PO DAILY RF: 0 Artificial Tears(iy-glqf-cnld) 1-0.2-0.2 % drops 1 drp ophthalmic (eye) BID-TID RF: 0 Myrbetriq 25 mg tablet extended release 24 hr 1 tab PO DAILY RF: 0 diltiazem HCl 360 mg capsule,extended release 24hr 360 mg PO DAILY RF: 0 atorvastatin 20 mg tablet 40 mg PO DAILY RF: 0 acetaminophen 325 mg capsule 325 mg PO QID PRNRF: 0 calcium carbonate-vitamin D3 500 mg(1,250mg) -200 unit tablet 1 tab PO DAILY RF: 0 clotrimazole 1 % cream topical RF: 0 Balmex (petrolatum) 51.1 % ointment 1 appl topical DAILY RF: 0 ergocalciferol (vitamin D2) 1,250 mcg (50,000 unit) capsule 1,250 mcg PO QWEEK RF: 0 fluconazole 150 mg tablet 150 mg PO QWEEK RF: 0 albuterol sulfate [ProAir HFA] 90 mcg/actuation HFA aerosol inhaler 2 puff inhalation Q6H PRNRF: 0 PMFSH Past Medical History Medical History Abnormal thyroid biopsy Asthma CKD (chronic kidney disease) stage 3, GFR 30-59 ml/min HLD (hyperlipidemia) HTN (hypertension) Non-toxic multinodular goiter Overactive bladder 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 Mother No problems noted. Social History Social History Household Members: Children and Caregiver Household Members Other:: Daughter [phone] Neema, Son [phone], Bill Alcohol intake: never Patient Tobacco Use Status: Never used Tobacco Second Hand Smoke Exposure: No Advance Directives: Yes Advance Directives Information Provided: Yes Advance Directives on File: No
[2021-03-27 19:04] VITALS: BP 146/50; PULSE 73; RESP 16; O2SAT 95
[2021-03-27 20:17] VITALS: BP 148/58; PULSE 90; RESP 18; TEMP 36.6; O2SAT 95
[2021-03-27 20:36] LABS: Glucose Urine UA NEG (NEG); Leukocyte Esterase Urine NEG (NEG); Nitrite Urine NEG (NEG); Specific Gravity - Urine 1.025 (1.005-1.025); Urine Blood NEG (NEG); Urine Ketones NEG (NEG); Urine Protein NEG (NEG-TRACE)
[2021-03-27 20:41] LABS: Appearance Urine CLEAR; Color Urine YELLOW
[2021-03-27 21:44] VITALS: BP 144/86; PULSE 104; RESP 16; O2SAT 94
== END 2021-03-27 21:45 | disposition home or self-care (01) ==
PROVIDERS: Emergency Provider Internal Medicine; PCP Internal Medicine
DX: K52.9 Noninfective gastroenteritis and colitis, unspecified (principal); R10.9 Unspecified abdominal pain; Z79.899 Other long term (current) drug therapy
CPT/HCPCS: 36415; 74176; 80053; 81003; 83690; 85025; 96365; 96375; 99284; J2270; J2405

== ENCOUNTER → 2021-10-13 12:27 | Outpatient (BNVA) | payer MEDICARE, SELFPAY | PROVIDERS: PCP Internal Medicine; Visit Provider Internal Medicine Endocrinology, Diabetes & Metabolism | DX: E04.2 Nontoxic multinodular goiter (principal) | CPT/HCPCS: 99212 ==

== ENCOUNTER 2022-03-31 12:38 | Outpatient (REF) | payer MEDICARE, SELFPAY ==
--- NOTE | ~2022-03-31 | MM_ITS ---
EXAMINATION: BONE DENSITOMETRY CLINICAL INDICATION: Osteoporosis. COMPARISON: Previous BD dated 08/16/2017 and baseline BD dated 10/17/2012. TECHNIQUE: Using a Codefied DXA System (software version: 13.1) manufactured by [employer], dual-energy x-ray absorptiometry was performed of the lumbar spine and left hip. The images are of good technical quality. Summary results are attached. FINDINGS: AP SPINE L1-L4: Current: BMD 0.843 g/cm2, Z-score -1.9, T-score -2.8, osteoporosis, 4.6% increase from previous, 1.2% decrease from baseline (<5% change is not significant). Prior: BMD 0.806 g/cm2. Baseline: BMD 0.853 g/cm2. LEFT FEMUR, NECK: Current: BMD 0.628 g/cm2, Z-score -1.2, T-score -3.0, osteoporosis. Prior: BMD 0.625 g/cm2. Baseline: BMD 0.685 g/cm2. LEFT FEMUR, TOTAL: Current: BMD 0.711 g/cm2, Z-score -0.8, T-score -2.4, osteopenia, 0.4% increase from previous, 16.2% decrease from baseline (<5% change is not significant). Prior: BMD 0.708 g/cm2. Baseline: BMD 0.848 g/cm2. IDENTIFIED RISK FACTORS: Renal, secondary osteoporosis, menopause. HISTORY OF FRACTURE: None listed. MEDICATIONS: Calcium supplements or multivitamin, vitamin D. MM/XR DEXA axial skeleton IMPRESSION: 1. DIAGNOSIS: Osteoporosis based on the lowest T-score value of -3.0 in the femoral neck applying World Health Organization criteria. 2. 10-YEAR FRACTURE RISK PREDICTION, FRAX: Major osteoporotic fracture (clinical spine, forearm, hip or shoulder) 24.8%. Hip fracture 17.3%. 3. Treatment Recommendations: NOF guidelines recommend consideration for treatment in postmenopausal women and men age 50 and older presenting with the following: -A hip or vertebral (clinical or morphometric) fracture. -T-score less than or equal to -2.5 at the femoral neck or spine after appropriate evaluation to exclude secondary causes. -Low bone mass at the hip or spine and a 10-year fracture probability by FRAX of greater than or equal to 3% for hip fracture or greater than or equal to 20% for major osteoporotic fracture based on the [place] adapted WHO algorithm. 4. Other Recommendations: All treatment decisions require clinical judgment and consideration of individual patient factors, including patient preferences, comorbidities, previous drug use, risk factors not captured in the FRAX model (e.g. frailty, falls, vitamin D deficiency, increased bone turnover, interval significant decline in bone density) and possible under or overestimation of fracture risk by FRAX. Additional medical evaluation for secondary cause of low bone mineral density may be appropriate. FUTURE SCAN RECOMMENDATION: People with diagnosed cases of osteoporosis or at high risk for fracture should have regular bone mineral density tests. For patients eligible for Medicare, routine testing is allowed once every 2 years. The testing frequency can be increased to one year for patients who have rapidly progressing disease, those who are receiving or discontinuing medical therapy to restore bone mass, or have additional risk factors.
== END 2022-03-31 12:39 | disposition home or self-care (01) ==
LOC: HO.MAMMO 12:38
PROVIDERS: Visit Provider Internal Medicine
DX: Z13.820 Encounter for screening for osteoporosis (principal); M81.0 Age-related osteoporosis without current pathological fracture; Z78.0 Asymptomatic menopausal state
CPT/HCPCS: 77080

== ENCOUNTER 2023-05-05 09:34 | Outpatient (REF) | payer MEDICARE, SELFPAY ==
[2023-05-05 10:01] LABS: MANUAL DIFF FLAG NO
[2023-05-05 10:30] LABS: Basophils Percent Auto 0.3 % (0-2); Eosinophils Absolute Auto 0.1 X10*3/uL (0.0-0.4); Hematocrit 37.2 % (37.0-47.0); Imm Gran Abs Auto 0.02 X10*3/uL (0.00-0.03); Imm Gran Pct Auto 0.3 % (0.0-0.4); Lymphocytes Absolute Auto 1.7 X10*3/uL (1.2-4.9); Lymphocytes Percent Auto 27.5 % (20-40); Mean Corpuscular HGB Conc 32.3 g/dl (31.0-35.0); Mean Corpuscular Hemoglobin 27.4 pg (27.0-33.0); Mean Corpuscular Volume 84.9 fL (80.0-98.0); Mean Platelet Volume 11.4 fL (9.4-12.3); Monocytes Absolute Auto 0.5 X10*3/uL (0.1-1.2); Monocytes Percent Auto 8.1 % (2-11); Neutrophils Absolute Auto 3.9 x10*3/uL (2.0-8.3); Neutrophils Percent Auto 62.8 % (45-73); Platelet Count 268 X10*3/uL (160-400); Red Blood Count 4.38 X10*6/uL (4.20-5.50); Red Cell Distribution Width 15.7 % (11.0-16.0); White Blood Count 6.3 X10*3/uL (4.8-10.8)
[2023-05-05 11:25] LABS: Appearance Urine Hazy; Color Urine Yellow; Glucose Urine UA Negative (Negative); Leukocyte Esterase Urine Negative (Negative); Nitrite Urine Positive (Negative); Specific Gravity - Urine >= 1.030 (1.005-1.025); UMIC TRIGGER UA YES; Urine Blood Negative (Negative); Urine Ketones 15 mg/dL (Negative); Urine Protein 30 (1+) mg/dL (Neg-Trace)
[2023-05-05 11:39] LABS: Bacteria Urine 4+ (None Seen); Hyaline Casts Urine 0-2 /LPF (0-2); RBC Urine 0-2 /HPF (0-2)
[2023-05-05 11:39] LABS: Vitamin D 25-OH Total 18.9 ng/mL (>30)
[2023-05-05 12:25] LABS: Uric Acid 4.4 mg/dL (2.4-5.7)
[2023-05-05 13:16] LABS: Anion Gap 14 (12-20); Blood Urea Nitrogen 16 mg/dL (9-16); Calcium 9.6 mg/dL (8.4-10.2); Carbon Dioxide 23 mmol/L (22-29); Chloride 110 mmol/L (96-108); Estimated Glomerular Filt Rate 48; Potassium 3.6 mmol/L (3.3-5.1); Sodium 143 mmol/L (135-145)
[2023-05-08 17:09] LABS: Calcium (PTHI) 9.1 mg/dL (8.6-10.4); PTHI 71 pg/mL (16-77)
== END 2023-05-05 09:35 | disposition home or self-care (01) ==
LOC: HO.LAB 09:34
PROVIDERS: Visit Provider Physician Assistant
DX: N18.32 Chronic kidney disease, stage 3b (principal); E55.9 Vitamin D deficiency, unspecified
CPT/HCPCS: 36415; 80051; 81001; 82306; 82310; 82565; 82570; 83970; 84520; 84550; 85025

== ENCOUNTER 2023-11-26 09:58 | Outpatient (REF) | payer MEDICARE, SELFPAY ==
[2023-11-26 11:49] LABS: Anion Gap 11 (12-20); Blood Urea Nitrogen 19 mg/dL (9-16); Calcium 9.3 mg/dL (8.4-10.2); Carbon Dioxide 27 mmol/L (22-29); Chloride 110 mmol/L (96-108); Estimated Glomerular Filt Rate > 60; Glucose Random 87 mg/dL (60-115); Potassium 3.7 mmol/L (3.3-5.1); Sodium 144 mmol/L (135-145)
[2023-11-26 11:57] LABS: Vitamin D 25-OH Total 15.6 ng/mL (>30)
[2023-11-28 23:12] LABS: TS Negative Control Passed; TS Panel A 0; TS Panel B 0; TS Positive Control Passed; TSpotTB Negative (Negative)
== END 2023-11-26 09:59 | disposition home or self-care (01) ==
LOC: HO.HHCL 09:58
PROVIDERS: Visit Provider Internal Medicine
DX: Z00.00 Encounter for general adult medical examination without abnormal findings (principal); M81.0 Age-related osteoporosis without current pathological fracture
CPT/HCPCS: 36415; 80048; 82306; 86481

== ENCOUNTER 2024-04-10 13:37 | Outpatient (REF) | payer MEDICARE, SELFPAY ==
--- NOTE | ~2024-04-10 | MM_ITS ---
EXAMINATION: BONE DENSITOMETRY CLINICAL INDICATION: Osteoporosis. COMPARISON: Previous BD dated 03/31/2022 and baseline BD dated 10/17/2012. TECHNIQUE: Using a [employer] DXA System (software version: 13.1) manufactured by [employer], dual-energy x-ray absorptiometry was performed of the lumbar spine and left hip. The images are of good technical quality. Summary results are attached. FINDINGS: LEFT FEMUR, NECK: Current: BMD 0.800 g/cm2, Z-score 0.0, T-score -1.7, osteopenia. Prior: BMD 0.776 g/cm2. Baseline: BMD 0.685 g/cm2. LEFT FEMUR, TOTAL: Current: BMD 0.826 g/cm2, Z-score 0.1, T-score -1.4, osteopenia, 0.5% decrease from previous, 2.6% decrease from baseline (<5% change is not significant). Prior: BMD 0.830 g/cm2. Baseline: BMD 0.848 g/cm2. AP SPINE L1-L4: Current: BMD 0.824 g/cm2, Z-score 2.2, T-score -3.0, osteoporosis, 2.3% decrease from previous, 3.4% decrease from baseline (<5% change is not significant). Prior: BMD 0.843 g/cm2. Baseline: BMD 0.853 g/cm2. IDENTIFIED RISK FACTORS: Family history (parent hip fracture), height loss, menopause, osteoporosis, renal. HISTORY OF FRACTURE: None listed. MEDICATIONS: Calcium, vitamin D. MM/XR DEXA axial skeleton IMPRESSION: 1. DIAGNOSIS: Osteoporosis based on the lowest T-score value of -3.0 in the lumbar spine applying World Health Organization criteria. 2. 10-YEAR FRACTURE RISK PREDICTION, FRAX: According to the guidelines, FRAX calculation should only be performed on patients in the osteopenia bone density category. Therefore, FRAX was not performed on this patient. 3. Treatment Recommendations: NOF guidelines recommend consideration for treatment in postmenopausal women and men age 50 and older presenting with the following: -A hip or vertebral (clinical or morphometric) fracture. -T-score less than or equal to -2.5 at the femoral neck or spine after appropriate evaluation to exclude secondary causes. -Low bone mass at the hip or spine and a 10-year fracture probability by FRAX of greater than or equal to 3% for hip fracture or greater than or equal to 20% for major osteoporotic fracture based on the [place] adapted WHO algorithm. 4. Other Recommendations: All treatment decisions require clinical judgment and consideration of individual patient factors, including patient preferences, comorbidities, previous drug use, risk factors not captured in the FRAX model (e.g. frailty, falls, vitamin D deficiency, increased bone turnover, interval significant decline in bone density) and possible under or overestimation of fracture risk by FRAX. Additional medical evaluation for secondary cause of low bone mineral density may be appropriate. FUTURE SCAN RECOMMENDATION: People with diagnosed cases of osteoporosis or at high risk for fracture should have regular bone mineral density tests. For patients eligible for Medicare, routine testing is allowed once every 2 years. The testing frequency can be increased to one year for patients who have rapidly progressing disease, those who are receiving or discontinuing medical therapy to restore bone mass, or have additional risk factors.
== END 2024-04-10 13:38 | disposition home or self-care (01) ==
LOC: HO.MAMMO 13:37
PROVIDERS: PCP Internal Medicine; Visit Provider Internal Medicine
DX: M81.0 Age-related osteoporosis without current pathological fracture (principal)
CPT/HCPCS: 77080

== ENCOUNTER 2024-06-01 22:08 | Inpatient (IN) | payer MEDICARE, SELFPAY ==
--- NOTE | 2024-06-01 | ECG_ITS ---
Test Reason : CHEST PAIN Blood Pressure : / mmHG Vent. Rate : 065 BPM Atrial Rate : 065 BPM P-R Int : 144 ms QRS Dur : 080 ms QT Int : 422 ms P-R-T Axes : 022 -05 072 degrees QTc Int : 438 ms Normal sinus rhythm Normal ECG When compared with ECG of 13-MAY-2013 02:05, No significant change was found Referred By: Generic ED Physician Electronically Signed By:LAUREL KOENIG
--- NOTE | ~2024-06-01 | CT_ITS ---
EXAMINATION: CT HEAD WITHOUT CONTRAST CLINICAL INFORMATION: Weakness. Right facial droop. Rule out stroke. COMPARISON: MR angiography head 07/31/2014. TECHNIQUE: Contiguous axial imaging was performed from the skull base to vertex without intravenous administration of contrast. This CT examination was performed using dose optimization techniques as appropriate, variously including the following: *Automated exposure control *Adjustment of mA and/or kV according to patient size (this includes techniques or standardized protocols for targeted exams where dose is matched to indication/reason for exam; i.e. extremities or head) *Use of iterative reconstruction technique DLP: 610 mGy-cm FINDINGS: The coil mass is noted in the expected location of the anterior margin of the right posterior communicating artery. No acute intracranial hemorrhage, tumors or acute infarcts noted. Moderate diffuse commensurate prominence of ventricles and sulci. Moderate scattered subcortical and periventricular white matter patchy hypodensities. Bilateral ocular lens replacements. No significant opacification of the visualized paranasal sinuses, mastoid air cells and middle ear cavities. CT/CT head/brain wo IV con IMPRESSION: *No acute intracranial abnormalities. 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 Electronically signed by: Chino Mcintosh MD 06/02/2024 01:02 AM EDT RP
--- NOTE | ~2024-06-01 | IR_ITS ---
Acute cholecystitis. PROCEDURES: 1. Imaged guided cholecystostomy tube CLINICIANS: Israel Thomas PA-C MEDICATIONS: -lidocaine 1% 10 mL SQ -Antibiotics: None -For additional details, please see anesthesia and nursing flowsheet. COMPLICATIONS: None ESTIMATED BLOOD LOSS: < 5 ml CONTRAST: 5 mL Omnipaque 300 SPECIMENS: A sample of bile was sent for culture. PROCEDURE NOTE: The procedure, risks, benefits, and alternatives were carefully explained to the patient's daughter and informed consent was obtained. The patient was placed supine on the operating room table. A timeout was performed. A limited ultrasound of the abdomen was performed to localize the gallbladder and choose appropriate needle entry and trajectory. The patient was prepped and draped in usual sterile fashion. The skin and deeper soft tissues were anesthetized with lidocaine. Under ultrasound guidance, a 5 [place]an neoSurgical catheter was advanced into the gallbladder via a transhepatic approach. Turbid brown fluid was immediately aspirated. A 0.035 wire was inserted through the catheter and coiled into the gallbladder. The catheter was removed over the wire. The tract was dilated. An 8.5 [place] all-purpose drainage catheter was advanced over the wire and coiled into the gallbladder. The wire was then removed. A contrast injection demonstrated the drain well-positioned within the gallbladder. A fluoroscopic image of the abdomen was saved in PACS. The gallbladder was then decompressed a sample of bile was sent for culture. The drainage catheter was connected to a BROOK bulb. A dry dressing was applied and secured with Tegaderm. There were no immediate complications. The patient was stable after the procedure and was transferred to the post anesthesia care unit. The procedure was done with the assistance of anesthesia department. IR/IR Biliary Drainage Placement Impression: Image guided cholecystostomy tube placement. This procedure was performed by Israel Thomas PA-C and supervised by Dr. Sherman. Electronically signed by: Guerrero Garcia MD 06/23/2024 02:31 PM EDT
--- NOTE | ~2024-06-01 | US_ITS ---
EXAMINATION: US ABDOMEN LIMITED CLINICAL INFORMATION: Right upper quadrant pain, vomiting. Evaluate for acute cholecystitis. COMPARISON: CT abdomen pelvis 06/02/2024. TECHNIQUE: Real-time imaging of the right upper quadrant abdominal viscera. FINDINGS: Gallbladder and biliary system: Multiple gallstones identified within the gallbladder lumen. No pericholecystic fluid collections. Normal gallbladder wall thickness. Negative sonographic Parekh's sign reported by the engineering technologist. No biliary duct dilatation noted. The common bile duct measures 6 mm in diameter, within normal limits of size. US/US abdomen limited IMPRESSION: Cholelithiasis. Multiple gallstones within the gallbladder lumen. No additional abnormalities noted. Negative sonographic Parekh sign. Electronically signed by: Chino Mcintosh MD 06/02/2024 03:24 AM EDT
--- NOTE | ~2024-06-01 | CT_ITS ---
EXAMINATION: CT ABDOMEN AND PELVIS WITH CONTRAST CLINICAL INFORMATION: Right upper quadrant pain. Vomiting. Rule out biliary disease. COMPARISON: CT abdomen and pelvis 03/27/2021. TECHNIQUE: Multidetector volumetric images were obtained from the superior aspect of the liver through the pubic symphysis following administration 85 mL of Omnipaque 350 intravenous contrast. Sagittal and coronal reformatted images were obtained on the technologist's workstation. Oral contrast: No This CT examination was performed using dose optimization techniques as appropriate, variously including the following: *Automated exposure control *Adjustment of mA and/or kV according to patient size (this includes techniques or standardized protocols for targeted exams where dose is matched to indication/reason for exam; i.e. extremities or head) *Use of iterative reconstruction technique DLP: 1108 mGy-cm FINDINGS: LUNG BASES: The visualized lung bases are unremarkable. LIVER, GALLBLADDER, AND BILIARY TREE: Normal appearance of the liver. Normal liver size and capsular contour. 1.6 cm hyperdensity with an eggshell configuration is present dependently within the lumen of the gallbladder and is consistent with a partially calcified gallstone. No gallbladder wall thickening or pericholecystic fluid collections identified. No dilatation of the common bile duct. PANCREAS: Unremarkable. SPLEEN: Unremarkable. ADRENAL GLANDS: Unremarkable. KIDNEYS AND URETERS: Possible rounded benign-appearing low-density simple cysts which were noted additional imaging follow-up in the basis of this examination. BLADDER: Unremarkable. GASTROINTESTINAL TRACT: Marked sigmoid diverticulosis. Normal appearance of the appendix. No free intraperitoneal fluid or gas collections. Normal appearance of the stomach. Normal appearance of the duodenum. ABDOMINAL WALL: No significant hernia is appreciated. LYMPH NODES: Normal. VASCULAR: Moderate scattered calcific atherosclerosis PELVIC VISCERA: Unremarkable. OSSEOUS STRUCTURES: Multilevel intervertebral disc space narrowing endplate osteophytosis and facet hypertrophic changes of the thoracic and lumbar spine. No vertebral body compression deformities. CT/CT abdomen pelvis w IV con IMPRESSION: *No acute abnormalities identified. *Cholelithiasis. A single 1.6 cm partially calcified gallstone is noted within the gallbladder lumen. No gallbladder inflammatory changes or biliary duct dilatation to specifically suggest acute cholecystitis. *Marked sigmoid diverticulosis. *Normal appendix. Fleischner guidelines were followed. Electronically signed by: Chino Mcintosh MD 06/02/2024 01:26 AM EDT
--- NOTE | ~2024-06-01 | NM_ITS ---
EXAMINATION: BILIARY TRACT IMAGING STUDY CLINICAL INDICATION: Right upper quadrant abdominal pain. Vomiting. COMPARISON: CT scan of the abdomen and pelvis and right upper quadrant abdominal ultrasound done on 06/02/2024. TECHNIQUE: Scintillation camera images were obtained over the abdomen for an observation of 60 minutes following the intravenous administration of 5.0 millicuries technetium 99m Mebrofenin. Additional delayed images were also obtained at 3.5-4 hours post radiotracer injection. FINDINGS: There is good concentration of activity in the liver by 5 minutes post injection. Biliary activity is well visualized by 10 minutes, and there is good visualization of small bowel activity by 30 minutes. The gallbladder remains nonvisualized throughout the entire study including the initial 60 minute and subsequent delayed 2.5-4 hours post injection images. NM/NM hepatobiliary wo pharm IMPRESSION: 1. Nonvisualized gallbladder. In the appropriate clinical setting, the finding would be consistent with cystic duct obstruction. However, false positive study may also be possible especially in this patient with gallbladder distention seen on prior anatomical imaging done earlier today. 2. The common bile duct is patent. 3. Liver function appears normal. Electronically signed by: Marie Conroy MD 06/02/2024 04:19 PM EDT
[2024-06-01 22:12] VITALS: BP 189/71; PULSE 66; O2SAT 97
[2024-06-01 22:29] VITALS: BMI 36.3
--- NOTE | 2024-06-01 22:35 | ED_ITS ---
HPI - Chest Pain General Chief Complaint: Chest Pain Stated Complaint: CPx 1hour Time Seen by Provider: 06/01/24 22:35 Source: patient and family Mode of arrival: EMS Limitations: language barrier (Tajik speaking only) History of Present Illness ED Provider: Dr. Eldon Bradford HPI narrative: 88-year-old female history of stroke, hypertension, hyperlipidemia who was brought to emergency department by ambulance for evaluation of chest, right upper quadrant and epigastric pain which began around 19:00 hours. The patient ate dinner around 16:00 hours which consisted of mashed potatoes, fried chicken wings and [place] fries. Proximally 3 hours later she developed severe pain in her epigastric and right upper quadrant area. She had multiple episodes of vomiting. The pain got progressively worse sore family called an ambulance and she was brought to the emergency department for evaluation. The family states that a proximally 1 month prior the patient developed a right facial droop and was having difficulty walking. The patient was not seen by her doctor for these symptoms. Related Data Home Medications ?Medication ?Instructions ?Recorded ?Confirmed furosemide 40 mg tablet 1 tab PO BID 06/26/20 02/11/21 levetiracetam 500 mg tablet 1 tab PO BID 06/26/20 02/11/21 lisinopril 40 mg tablet 1 tab PO DAILY 06/26/20 02/11/21 mirabegron 25 mg tablet,extended 1 tab PO DAILY 06/26/20 02/11/21 release 24 hr (Myrbetriq) peg [id number] 1 1 drp ophthalmic (eye) BID-TID dry 06/26/20 02/11/21 %-0.2 %-0.2 % eye drops eyes (Artificial Tears ([id number])) acetaminophen 325 mg capsule 325 mg PO QID PRN 01/12/21 02/11/21 albuterol sulfate 90 mcg/actuation 2 puff inhalation Q6H PRN 01/12/21 02/11/21 aerosol inhaler (ProAir HFA) atorvastatin 20 mg tablet 40 mg PO DAILY 01/12/21 02/11/21 calcium carbonate 500 mg-vitamin 1 tab PO DAILY 01/12/21 02/11/21 D3 5 mcg (200 unit) tablet clotrimazole 1 % topical cream appl topical 01/12/21 02/11/21 diltiazem HCl 360 mg 360 mg PO DAILY 01/12/21 02/11/21 capsule,extended release 24 hr fluconazole 150 mg tablet 150 mg PO QWEEK 01/12/21 02/11/21 white petrolatum 51.1 % topical 1 appl topical DAILY 01/12/21 02/11/21 ointment (Balmex (petrolatum)) Previous Rx's ?Medication ?Instructions ?Recorded ondansetron 4 mg disintegrating 4 mg PO Q6-8H PRN nausea and 03/27/21 tablet vomiting #7 tabs Allergies Allergy/AdvReac Type Severity Reaction Status Date / Time Fish Containing Products Allergy Mild RASH Verified 06/01/24 22:31 Penicillins Allergy Mild RASH Verified 06/01/24 22:31 seafood Allergy Mild Rash Uncoded 10/13/21 12:35 Review of Systems 2 Review of Systems: Yes all other systems are reviewed and are negative [facility] Past Medical History [facility] Narrative: Social history: She lives at home with her family. 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 Mother No problems noted. Social History Social History Household Members: Children and Caregiver Household Members Other:: Daughter [phone] Neema, Son [phone], Bill Alcohol intake: never Patient Tobacco Use Status: Never used Tobacco Second Hand Smoke Exposure: No Advance Directives: No Advance Directives Information Provided: Yes Do you have a plan to hurt others: No Plan Physical Exam 2 Vital Signs: Vital Signs: Last Vital Signs Temp 97.9 F 06/02/24 03:40 Pulse 70 06/02/24 03:40 Resp 16 06/02/24 03:40 BP 157/59 H 06/02/24 03:40 Pulse Ox 94 06/02/24 03:40 O2 Del Method Room Air 06/02/24 03:40 BMI result Body Mass Index 36.3 Vital signs revealed an elevated blood pressure of 166/69 otherwise unremarkable Exam: General: Awake, alert , in distress secondary to actively vomiting Head: Normocephalic, atraumatic EENT: PERRL, Lids normal, sclera normal, conjunctiva normal, nose normal , ears normal, throat without erythema or exudates Neck: Supple, no adenopathy Lung: breath sounds symmetric, no wheezing, rales or rhonchi Chest: symmetric movement, nontender Heart: regular rate and rhythm, normal S1, S2 no murmurs or rubs Abdomen: soft, moderate to severe right upper quadrant tenderness with positive Parekh sign, moderate epigastric tenderness, normoactive bowel sounds, no distension, no rebound, no voluntary or involuntary guarding Back: no vertebral tenderness, no CVAT Extremities: no deformities, moves all extremities symmetrically Neuro: General: Awake, alert, oriented, normal speech Cranial nerves: Patient has a mild right facial droop Strength: Strength is symmetric bilaterally Psych: Pleasant, cooperative NIH Stroke Scale Level of Consciousness: Alert Level of Consciousness Questions: Answers both questions correctly Level of Consciousness Commands: Performs both tasks correctly Best Gaze: Normal Visual: No visual loss Facial Palsy: Minor paralyis Motor Arm (Right): No drift Motor Arm (Left): No drift Motor Leg (Right): No drift Motor Leg (Left): No drift Limb Ataxia: Absent Sensory: Normal Best Language: No aphasia Dysarthia: Normal Extinction and Inattention: No abnormality Score: 1 Medications Administered Generic Name Dose Route Start Last Admin Trade Name Freq PRN Reason Stop Dose Admin Sodium Chloride 1,000 mls @ 125 mls/hr 06/02/24 01:55 06/02/24 02:14 Ns IV 06/02/24 09:54 125 mls/hr .Q8H STA Administration Discontinued Medications Generic Name Dose Route Start Last Admin Trade Name Freq PRN Reason Stop Dose Admin Sodium Chloride 1,000 mls @ 999 mls/hr 06/01/24 22:51 06/02/24 01:51 Ns IV 06/01/24 23:51 Infused .Q1H1M STA Infusion Iohexol 85 ml 06/02/24 00:12 06/02/24 00:16 Iohexol 350 Mg/Ml 100 Ml Infus..Btl IV 06/02/24 00:13 85 ml ONCE ONE Administration Morphine Sulfate 4 mg 06/01/24 22:51 06/02/24 00:18 Morphine Sulfate 4 Mg/Ml Cartridge IVPUSH 06/01/24 22:52 4 mg ONCE STA Administration Protocol Morphine Sulfate 4 mg 06/02/24 01:55 06/02/24 02:13 Morphine Sulfate 4 Mg/Ml Cartridge IVPUSH 06/02/24 01:56 4 mg ONCE STA Administration Protocol Ondansetron HCl 4 mg 06/01/24 22:51 06/02/24 00:18 Ondansetron Hcl 4 Mg/2 Ml Vial IVPUSH 06/01/24 22:52 4 mg ONCE ONE Administration Medical Decision Making Medical Decision Making MDM Narrative: 88-year-old female history of stroke, hypertension, hyperlipidemia who was brought to emergency department by ambulance for evaluation of chest, right upper quadrant and epigastric pain which began 3 hours after eating fried food. Vital signs revealed an elevated blood pressure. Patient was actively vomiting at the time my evaluation. She had significant right upper quadrant tenderness with a positive Parekh sign and epigastric tenderness. Patient does have a right facial droop with normal strength which the family states has been there for proximally 1 month. Differential diagnosis: ?Includes but is not limited to pancreatitis, gastritis, cholecystitis, stroke, electrolyte abnormalities anemia Course: 03:26 My interpretation patient's laboratory evaluation is as follows: CBC was normal. Chloride elevated 110. BUN elevated 19. Glucose elevated 126. Lipase was normal 31. LFTs were normal. COVID-19, influenza and RSV were negative. CT scan of the abdomen pelvis did reveal a calcified gallstone with no other significant findings. Right upper quadrant ultrasound revealed multiple non mobile stones seen near the gallbladder neck, gallbladder appears enlarged at 14 cm, gallbladder wall appears within normal limits 0.3 cm. Common bile duct appears with a normal limits for age at 0.6 cm. No free fluid seen. The patient required 2 doses of morphine 4 mg IV to control her pain. 03:50 I did discuss the patient's presentation over tiger text with the covering surgeon Dr. Pollard. This time there was no acute surgical intervention needed therefore the patient will be admitted to the medical service with a surgical consult. I did discuss the patient's presentation over tiger text with the covering hospitalist, Dr. Bobby Heller and the patient will be admitted to the hospitalist service. Admission/Observation Consideration of admission/observation: Escalation of care including admission/observation considered (Yes) Consult Healthcare Provider Management of the patient was discussed with: Hospitalist (Dr. Bobby Heller) and Web Developer Programmer (Dr. Pollard, surgeon on-call) Lab Data MDM Lab Attestation statement: I reviewed the patient's lab results. 06/01/24 22:42 06/01/24 22:42 Labs: Lab Results 06/01/24 Range/Units 22:42 WBC 9.1 (4.8-10.8) X10*3/uL RBC 4.42 (4.20-5.50) X10*6/uL Hgb 12.8 (12.0-16.0) g/dl Hct 38.4 (37.0-47.0) % MCV 86.9 (80.0-98.0) fL MCH 29.0 (27.0-33.0) pg MCHC 33.3 (31.0-35.0) g/dl RDW 14.4 (11.0-16.0) % Plt Count 242 (160-400) X10*3/uL MPV 11.1 (9.4-12.3) fL Immature Gran % (Auto) 0.2 (0.0-0.4) % Neut % (Auto) 72.2 (45-73) % Lymph % (Auto) 20.3 (20-40) % [place] % (Auto) 6.3 (2-11) % Eos % (Auto) 0.7 (0-4) % Baso % (Auto) 0.3 (0-2) % Lymph # (Auto) 1.9 (1.2-4.9) X10*3/uL [place] # (Auto) 0.6 (0.1-1.2) X10*3/uL Eos # (Auto) 0.1 (0.0-0.4) X10*3/uL Baso # (Auto) 0.0 (0.0-0.2) X10*3/uL Abs Immat Gran (auto) 0.02 (0.00-0.03) X10*3/uL Absolute Neuts (auto) 6.6 (2.0-8.3) x10*3/uL Absolute Nucleated RBC 0.000 (0.0-0.012) X10*3/uL Nucleated RBC % (auto) 0.0 (0.0-0.2) /100WBC Hold Blue Top SEE NOTE Sodium 145 (135-145) mmol/L Potassium 4.7 D (3.3-5.1) mmol/L Chloride 110 H (96-108) mmol/L Carbon Dioxide 27 (22-29) mmol/L Anion Gap 13 (12-20) BUN 19 H (9-16) mg/dL Creatinine 1.20 (0.5-1.4) mg/dL Estim Creat Clear Calc 34.4 Estimated GFR 42 Random Glucose 126 H (60-115) mg/dL Calcium 9.3 (8.4-10.2) mg/dL Magnesium 2.1 (1.6-2.6) mg/dL Total Bilirubin 0.4 (0.0-1.0) mg/dL AST 20 (5-31) U/L ALT 12 (0-31) U/L Alkaline Phosphatase 77 (39-117) U/L Troponin I High Sens 5.4 (<3.5-17.0) ng/L B-Natriuretic Peptide 319 H (<100) pg/mL Total Protein 8.0 (6.5-8.0) g/dL Albumin 3.9 (3.5-5.0) g/dL Lipase 31 (8-78) U/L Influenza Type A (PCR) NEGATIVE (Negative) Influenza Type B (PCR) NEGATIVE (Negative) RSV RNA Qual (PCR) NEGATIVE (Negative) SARS-CoV-2 RNA (RT-PCR) NEGATIVE (Negative) Independent Interpretation I performed an independent interpretation of an: EKG Interpretation: My independent interpretation patient's 12 EKG done at 21:13 hours is as follows: Normal sinus rhythm rate of 65, normal VT interval, QRS duration QTC interval, no ST segment elevation, no ST segment depression, no significant T- wave abnormalities, no PACs, no PVCs Radiology Impression Discussion of test interpretation with radiology: I have reviewed the radiologist's reading. Radiologist Impression: CT abdomen pelvis w IV con IMPRESSION: *No acute abnormalities identified. *Cholelithiasis. A single 1.6 cm partially calcified gallstone is noted within the gallbladder lumen. No gallbladder inflammatory changes or biliary duct dilatation to specifically suggest acute cholecystitis. *Marked sigmoid diverticulosis. *Normal appendix. Electronically signed by: Chino Mcintosh MD 06/02/2024 01:26 AM EDT RP US abdomen limited IMPRESSION: Cholelithiasis. Multiple gallstones within the gallbladder lumen. No additional abnormalities noted. Negative sonographic Parekh sign. Electronically signed by: Chino Mcintosh MD 06/02/2024 03:24 AM EDT RP Independent Historian Clinical information obtained from an independent historian. History obtained from or confirmed by: Other (Son-in-law and daughter) Chronic Conditions Patient?s care impacted by: Other (Hyperlipidemia, stroke) Discharge Plan Discharge Patient Disposition: Admitted As Inpatient Prescriptions: No Action furosemide 40 mg tablet 1 tab PO BID levetiracetam 500 mg tablet 1 tab PO BID lisinopril 40 mg tablet 1 tab PO DAILY Artificial Tears(ve-xtkz-eyzd) 1-0.2-0.2 % drops 1 drp ophthalmic (eye) BID-TID Myrbetriq 25 mg tablet extended release 24 hr 1 tab PO DAILY diltiazem HCl 360 mg capsule,extended release 24hr 360 mg PO DAILY atorvastatin 20 mg tablet 40 mg PO DAILY ondansetron 4 mg tablet,disintegrating 4 mg PO Q6-8H PRN (Reason: nausea and vomiting) Qty: 7 0RF acetaminophen 325 mg capsule 325 mg PO QID PRN calcium carbonate-vitamin D3 500 mg(1,250mg) -200 unit tablet 1 tab PO DAILY clotrimazole 1 % cream topical Balmex (petrolatum) 51.1 % ointment 1 appl topical DAILY fluconazole 150 mg tablet 150 mg PO QWEEK albuterol sulfate [ProAir HFA] 90 mcg/actuation HFA aerosol inhaler 2 puff inhalation Q6H PRN Print Language: Tajik
[2024-06-01 22:47] VITALS: BP 166/69; PULSE 70; RESP 19; TEMP 36.5; O2SAT 97
[2024-06-01 22:49] LABS: MANUAL DIFF FLAG NO
[2024-06-01 22:50] LABS: Basophils Percent Auto 0.3 % (0-2); Eosinophils Absolute Auto 0.1 X10*3/uL (0.0-0.4); Eosinophils Percent Auto 0.7 % (0-4); Hematocrit 38.4 % (37.0-47.0); Hemoglobin 12.8 g/dl (12.0-16.0); Imm Gran Abs Auto 0.02 X10*3/uL (0.00-0.03); Imm Gran Pct Auto 0.2 % (0.0-0.4); Lymphocytes Absolute Auto 1.9 X10*3/uL (1.2-4.9); Lymphocytes Percent Auto 20.3 % (20-40); Mean Corpuscular HGB Conc 33.3 g/dl (31.0-35.0); Mean Corpuscular Volume 86.9 fL (80.0-98.0); Mean Platelet Volume 11.1 fL (9.4-12.3); Monocytes Absolute Auto 0.6 X10*3/uL (0.1-1.2); Monocytes Percent Auto 6.3 % (2-11); Neutrophils Absolute Auto 6.6 x10*3/uL (2.0-8.3); Neutrophils Percent Auto 72.2 % (45-73); Platelet Count 242 X10*3/uL (160-400); Red Blood Count 4.42 X10*6/uL (4.20-5.50); Red Cell Distribution Width 14.4 % (11.0-16.0); White Blood Count 9.1 X10*3/uL (4.8-10.8)
--- NOTE | 2024-06-01 22:50 | PC.NURSE ---
MD Bradford called to bedside for evaluation of right facial/eye droop (unsure if this is patients baseline or not) metal wire coating operator called to bedside - according to family, the eye droop appears to be worse than it normally is (first noticed april 10...called PCP but never followed up on it per family) according to MD Bradford no new signs/symptoms of stroke at this time. per family pt had a stroke 15 yrs ago, possibly had another one on april 10 but was never seen for it At this time pt is reporting mid sternal/epigastric pain, radiating to LUQ w/ active N/V after eating fried chicken wings for dinner ekg done/labs sent/iv line placed/ on clinical research monitor
[2024-06-01 23:15] LABS: Alanine Aminotransferase 12 U/L (0-31); Albumin Level 3.9 g/dL (3.5-5.0); Alkaline Phosphatase 77 U/L (39-117); Anion Gap 13 (12-20); Aspartate Amino Transferase 20 U/L (5-31); Bilirubin Total 0.4 mg/dL (0.0-1.0); Blood Urea Nitrogen 19 mg/dL (9-16); Calcium 9.3 mg/dL (8.4-10.2); Carbon Dioxide 27 mmol/L (22-29); Chloride 110 mmol/L (96-108); Creatinine Clr Calc Pharmacy 34.4; Estimated Glomerular Filt Rate 42; Glucose Random 126 mg/dL (60-115); Lipase 31 U/L (8-78); Magnesium 2.1 mg/dL (1.6-2.6); Potassium 4.7 mmol/L (3.3-5.1); Sodium 145 mmol/L (135-145)
[2024-06-01 23:17] LABS: B Type Natriuretic Peptide 319 pg/mL (<100)
[2024-06-01 23:22] LABS: Troponin-I High Sensitivity 5.4 ng/L (<3.5-17.0)
[2024-06-01 23:27] LABS: Influenza A PCR NEGATIVE (Negative); Influenza B PCR NEGATIVE (Negative); Resp Syncy Virus RNA Qual PCR NEGATIVE (Negative); SARS COV2 PCR INHOUSE NEGATIVE (Negative)
[2024-06-02] MEDS: iohexoL 350 MG/ML 100 ML INFUS..BTL 85 ML IV (00:16)
[2024-06-02] MEDS: ondansetron HCL 4 MG/2 ML VIAL IVPUSH (00:18)
[2024-06-02] MEDS: Morphine Sulfate 4 MG/ML CARTRIDGE IVPUSH ×2 (00:18→02:13)
[2024-06-02] MEDS: 0.9 % Sodium Chloride 1,000 ML 999 ML IV (00:19)
[2024-06-02] MEDS: 0.9 % Sodium Chloride 1,000 ML 125 ML IV (02:14)
[2024-06-02 03:40] VITALS: BP 157/59; PULSE 70; RESP 16; TEMP 36.6; O2SAT 94
[2024-06-02 05:06] VITALS: BP 170/62; PULSE 80; RESP 16; O2SAT 94
--- NOTE | 2024-06-02 06:03 | P.HPHOSP_ITS ---
History of Present Illness Date of Service: 06/02/24 Attending physician on admission: Chantelle Heller Chief Complaint: Abdominal pain Diana Scott is 88 years old woman with past medical history significant for hyperlipidemia, hypertension, asthma and seizures was brought to the emergency department via EMS due to severe upper abdominal pain that started last night associated with nausea and vomiting. Pain started after eating dinner. Denies fever or chills. Denied chest pain, shortness on breath, cough, headache, palpitations or dizziness. Patient does have a right facial droop noted by the family a month ago. In the ED, she was found to have hypertension. Last blood pressure is 170/62. Other vital signs are normal. Blood workup including CBC, CMP and lipase are unremarkable. Viral testing for influenza, RSV and COVID-[address] is negative[address] pelvis CT scan with IV contrast showed no acute abnormalities except for cholelithiasis without CBD dilatation. There is underlying sigmoid diverticulosis without diverticulitis and normal appendix. Abdominal ultrasound showed cholelithiasis. ECG showed normal sinus rhythm. ED tx: NS 1 L bolus, morphine 8 mg IV, (total), Zofran 4 mg IV Review of Systems 2 Review of Systems: All 12 systems were reviewed and normal except as noted in HPI. 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 Mother No problems noted. Surgical History History of aortic aneurysm repair History of cataract extraction Social History Household Members: Children and Caregiver Household Members Other:: Daughter [phone] Neema, Son [phone], Bill Alcohol intake: never Patient Tobacco Use Status: Never used Tobacco Second Hand Smoke Exposure: No Meds Allergies Allergy/AdvReac Type Severity Reaction Status Date / Time Fish Containing Products Allergy Mild RASH Verified 06/01/24 22:31 Penicillins Allergy Mild RASH Verified 06/01/24 22:31 seafood Allergy Mild Rash Uncoded 10/13/21 12:35 Active Medications: Current Medications Hydromorphone HCl (Hydromorphone Hcl 0.5 Mg/0.5 Ml Syringe) 0.5 mg IVPUSH Q6H PRN; Protocol PRN Reason: Pain, Severe (Pain Scale 7-10) Sodium Chloride (Ns) 1,000 mls @ 125 mls/hr IV .Q8H STA Stop: 06/02/24 09:54 Last Admin: 06/02/24 02:14 Dose: 125 mls/hr Lactated Ringer's (Lr) 1,000 mls @ 80 mls/hr IVCONT .[id number] LUIS ARMANDO Melatonin (Melatonin 3 Mg Tablet) 6 mg PO BEDTIME PRN PRN Reason: Insomnia Sodium Chloride (0.9 % Sodium Chloride Flush 3 Ml Syringe) 3 ml IVFLUSH QSHIFT LUIS ARMANDO Home Medications ?Medication ?Instructions ?Recorded ?Confirmed ?Last Taken ?Type furosemide 40 mg tablet 1 tab PO BID 06/26/20 02/11/21 Unknown History levetiracetam 500 mg tablet 1 tab PO BID 06/26/20 02/11/21 Unknown History lisinopril 40 mg tablet 1 tab PO DAILY 06/26/20 02/11/21 Unknown History mirabegron 25 mg tablet,extended 1 tab PO DAILY 06/26/20 02/11/21 Unknown History release 24 hr (Myrbetriq) peg [id number] 1 1 drp ophthalmic (eye) BID-TID dry 06/26/20 02/11/21 Unknown History %-0.2 %-0.2 % eye drops eyes (Artificial Tears ([id number])) acetaminophen 325 mg capsule 325 mg PO QID PRN 01/12/21 02/11/21 Unknown History albuterol sulfate 90 mcg/actuation 2 puff inhalation Q6H PRN 01/12/21 02/11/21 Unknown History aerosol inhaler (ProAir HFA) atorvastatin 20 mg tablet 40 mg PO DAILY 01/12/21 02/11/21 Unknown History calcium carbonate 500 mg-vitamin 1 tab PO DAILY 01/12/21 02/11/21 Unknown History D3 5 mcg (200 unit) tablet clotrimazole 1 % topical cream appl topical 01/12/21 02/11/21 Unknown History diltiazem HCl 360 mg 360 mg PO DAILY 01/12/21 02/11/21 Unknown History capsule,extended release 24 hr fluconazole 150 mg tablet 150 mg PO QWEEK 01/12/21 02/11/21 Unknown History white petrolatum 51.1 % topical 1 appl topical DAILY 01/12/21 02/11/21 Unknown History ointment (Balmex (petrolatum)) levetiracetam 500 mg tablet 500 mg PO BID 06/02/24 06/02/24 Unknown History Physical Exam 2 Vital Signs and Narrative: Vital Signs: Last Vital Signs Temp 97.9 F 06/02/24 03:40 Pulse 80 06/02/24 05:06 Resp 16 06/02/24 05:06 BP 170/62 H 06/02/24 05:06 Pulse Ox 94 06/02/24 05:06 O2 Del Method Room Air 06/02/24 05:06 BMI result Body Mass Index 36.3 Constitutional - Awake and Alert, No apparent distress. Pleasant. Cooperative. HEENT - PERRL, EOMI. Dry oral mucosa. Heart - RRR. Lungs - Normal lung expansion, Normal respiratory effort, No respiratory distress, CTA bilaterally Abdomen - Nondistended, increased bowel sounds. RUQ tenderness, no rebound. No guarding. Extremities - Lower extremities hyperpigmentation and edema. Musculoskeletal - Normal inspection, normal ROM Skin - Warm/Dry Neurological - Alert & oriented x3. Right facial droop. Normal speech. No focal weakness grossly noted. Psychological - Appropriate affect Results Labs 06/01/24 22:42 06/01/24 22:42 Labs: Laboratory Results - last 24 hr 06/01/24 22:42 MCV 86.9 MCH 29.0 MCHC 33.3 RDW 14.4 Plt Count 242 MPV 11.1 Immature Gran % (Auto) 0.2 Neut % (Auto) 72.2 Lymph % (Auto) 20.3 Cross % (Auto) 6.3 Eos % (Auto) 0.7 Baso % (Auto) 0.3 Lymph # (Auto) 1.9 [place] # (Auto) 0.6 Eos # (Auto) 0.1 Baso # (Auto) 0.0 Abs Immat Gran (auto) 0.02 Absolute Neuts (auto) 6.6 Absolute Nucleated RBC 0.000 Nucleated RBC % (auto) 0.0 Hold Blue Top SEE NOTE Anion Gap 13 Estim Creat Clear Calc 34.4 Estimated GFR 42 Random Glucose 126 H Calcium 9.3 Magnesium 2.1 Total Bilirubin 0.4 AST 20 ALT 12 Alkaline Phosphatase 77 Troponin I High Sens 5.4 B-Natriuretic Peptide 319 H Total Protein 8.0 Albumin 3.9 Lipase 31 Influenza Type A (PCR) NEGATIVE Influenza Type B (PCR) NEGATIVE RSV RNA Qual (PCR) NEGATIVE SARS-CoV-2 RNA (RT-PCR) NEGATIVE Imaging Radiologist's Impressions: Impressions Head CT 06/01/24 22:52 IMPRESSION: *No acute intracranial abnormalities. 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 Electronically signed by: Chino Mcintosh MD 06/02/2024 01:02 AM EDT Abdomen/Pelvis CT 06/02/24 00:00 IMPRESSION: *No acute abnormalities identified. *Cholelithiasis. A single 1.6 cm partially calcified gallstone is noted within the gallbladder lumen. No gallbladder inflammatory changes or biliary duct dilatation to specifically suggest acute cholecystitis. *Marked sigmoid diverticulosis. *Normal appendix. Fleischner guidelines were followed. Electronically signed by: Chino Mcintosh MD 06/02/2024 01:26 AM EDT Abdomen Ultrasound 06/02/24 02:25 IMPRESSION: Cholelithiasis. Multiple gallstones within the gallbladder lumen. No additional abnormalities noted. Negative sonographic Parekh sign. Electronically signed by: Chino Mcintosh MD 06/02/2024 03:24 AM EDT Assessment and Plan (1) Acute cholecystitis: Status: Acute (2) Biliary colic: Status: Acute Plan Diana Scott is 88 y/o woman admitted with: * Abdominal pain secondary to cholelithiasis/biliary colic. Admit to hospitalist service. NPO. Start IV fluids. IV analgesia and antiemetic as needed. Surgery consult -ED discussed case with Dr. Pollard who recommeded admission. * Essential hypertension. Continue diltiazem and lisinopril. * Hyperlipidemia. Continue statin. * Overreactive bladder. Continue Myrbetriq. * Hx of head bleed 10 years ago. On Keppra for seizure prophylaxis. * Asthma. Only uses albuterol inhaler as needed. I contacted patient's daughter Neema and confirmed patient takes above meds. Daughter was updated about patient's condition and answered all her questions. She understood and agreed with plan. DVT prophylaxis: SCDs Code status: Full Patient will need hospitalization for at least 2 midnights for abdominal pain secondary to cholelithiasis treatment with IV analgesia, IV fluids and possible surgery. Quality Stroke Does the patient have a stroke diagnosis?: No VTE Prior VTE?: No VTE Risk Level:: Medical - moderate - high VTE Device Contraindication: Treatment Not Indicated VTE Drug Contraindication: Treatment Not Indicated
[2024-06-02 07:49] LABS: Glucose, Whole Blood 112 mg/dL (60-115)
[2024-06-02 08:10] VITALS: BP 143/74; PULSE 87; RESP 16; TEMP 36.6; O2SAT 91
[2024-06-02] MEDS: Lactated Ringers 1,000 ML 80 ML IVCONT ×2 (08:57→21:15)
--- NOTE | 2024-06-02 09:27 | PHA.MEDREC ---
Pharmacy Consult ? Medication Reconciliation Pharmacy has completed the medication reconciliation. Med rec complete using assistance of cyber crime investigator. Patient was unresponsive to any of the questions asked but the family member at bedside states patient takes all of her medications provided by [facility] pharmacy. Based on this information, claim history used to complete med rec along with information in medical record for over the counter medications (eye drops and calcium supplement). Family member was able to confirm that weekly medications are taken on Fridays.
[2024-06-02] MEDS: levETIRAcetam in NaCl (iso-os) 500 MG/100 ML PIGGYBACK 400 MG IV ×2 (09:40→21:30)
--- NOTE | 2024-06-02 13:23 | PC.NURSE ---
Patient remains in nuclear medicine. Admitting to room 374. Confirmed with Marcy in Nuclear Medicine that she has 1 hour remaining for her current nuc med study, and then will be brought to room 374. research quality assurance specialist called to bedside to explain to family the plan, so that they are not waiting around in the ED.
--- NOTE | 2024-06-02 13:51 | P.CONGS_ITS ---
History of Present Illness Consult details Consult date: 06/02/24 Narrative: Patient is an 88-year-old female with a plethora of comorbidities and intercurrent medical problems who presents here with a proximally 1 day history of upper abdominal pain with associated nausea and vomiting. Patient underwent a workup in the emergency room including CT scan and ultrasound demonstrating findings of cholelithiasis but no evidence of cholecystitis. Patient is somewhat limited in giving her history. Chart was reviewed and patient evaluated. 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 Mother No problems noted. Surgical History Surgical History History of aortic aneurysm repair History of cataract extraction Social History Social History Household Members: Children and Caregiver Household Members Other:: Daughter [phone] Neema, Son [phone], Bill Alcohol intake: never Patient Tobacco Use Status: Never used Tobacco Second Hand Smoke Exposure: No Meds Allergies Allergy/AdvReac Type Severity Reaction Status Date / Time Fish Containing Products Allergy Mild RASH Verified 06/01/24 22:31 Penicillins Allergy Mild RASH Verified 06/01/24 22:31 seafood Allergy Mild Rash Uncoded 10/13/21 12:35 Active Medications: Current Medications Albuterol Sulfate (Albuterol Sulfate 90 Mcg 8 Gm Inhaler) 2 puff INHALE RQ4H PRN PRN Reason: sob Hydromorphone HCl (Hydromorphone Hcl 0.5 Mg/0.5 Ml Syringe) 0.5 mg IVPUSH Q6H PRN; Protocol PRN Reason: Pain, Severe (Pain Scale 7-10) Lactated Ringer's (Lr) 1,000 mls @ 80 mls/hr IVCONT .[id number] LUIS ARMANDO Last Admin: 06/02/24 08:57 Dose: 80 mls/hr Levetiracetam (Keppra) 500 mg in 100 mls @ 400 mls/hr IV Q12H ON LICENSE OF [facility] Melatonin (Melatonin 3 Mg Tablet) 6 mg PO BEDTIME PRN PRN Reason: Insomnia Ondansetron HCl (Ondansetron Hcl 4 Mg/2 Ml Vial) 4 mg IVPUSH Q4H PRN PRN Reason: Nausea and Vomiting Sodium Chloride (0.9 % Sodium Chloride Flush 3 Ml Syringe) 3 ml IVFLUSH QSHIFT ON LICENSE OF [facility] Last Admin: 06/02/24 08:47 Dose: Not Given Home Medications ?Medication ?Instructions ?Recorded ?Confirmed ?Last Taken ?Type furosemide 40 mg tablet 1 tab PO BID@0700,1400 06/26/20 06/02/24 Unknown History lisinopril 40 mg tablet 40 mg PO DAILY 06/26/20 06/02/24 Unknown History mirabegron 25 mg tablet,extended 25 mg PO DAILY 06/26/20 06/02/24 Unknown History release 24 hr (Myrbetriq) peg [id number] 1 1 drp ophthalmic (eye) BID dry eyes 06/26/20 06/02/24 Unknown History %-0.2 %-0.2 % eye drops (Artificial Tears ([id number])) atorvastatin 20 mg tablet 20 mg PO DAILY 01/12/21 06/02/24 Unknown History calcium carbonate 500 mg-vitamin 1 tab PO DAILY 01/12/21 06/02/24 Unknown History D3 5 mcg (200 unit) tablet diltiazem HCl 360 mg 360 mg PO DAILY 01/12/21 06/02/24 Unknown History capsule,extended release 24 hr albuterol sulfate 90 mcg/actuation 2 inh inhalation Q6H PRN Shortness 06/02/24 06/02/24 Unknown History aerosol inhaler (Ventolin HFA) Of Breath Or Wheezing ergocalciferol (vitamin D2) 1,250 1,250 mcg PO FR 06/02/24 06/02/24 Unknown History mcg (50,000 unit) capsule levetiracetam 500 mg tablet 500 mg PO BID 06/02/24 06/02/24 Unknown History risedronate 35 mg tablet 35 mg PO FR 06/02/24 06/02/24 Unknown History Physical Exam 2 Vital Signs: Vital Signs: Last Vital Signs Temp 98 F 06/02/24 08:10 Pulse 87 06/02/24 08:10 Resp 16 06/02/24 08:10 BP 143/74 H 06/02/24 08:10 Pulse Ox 91 L 06/02/24 08:10 O2 Del Method Nasal Cannula 06/02/24 08:10 O2 Flow Rate 2 06/02/24 08:10 BMI result Body Mass Index 36.3 Const: Other: Elderly frail female in no acute distress GI: Other: Abdomen moderately corpulent, soft mild epigastric and right upper quadrant tenderness. No obvious Parekh sign demonstrated. No evidence of any guarding, rebound, rigidity. Results Labs 06/01/24 22:42 06/01/24 22:42 Labs: Abnormal lab results 06/01/24 Range/Units 22:42 Chloride 110 H (96-108) mmol/L BUN 19 H (9-16) mg/dL Random Glucose 126 H (60-115) mg/dL B-Natriuretic Peptide 319 H (<100) pg/mL Short CBC 06/01/24 Range/Units 22:42 WBC 9.1 (4.8-10.8) X10*3/uL Hgb 12.8 (12.0-16.0) g/dl Hct 38.4 (37.0-47.0) % Plt Count 242 (160-400) X10*3/uL BMP 06/01/24 22:42 Sodium 145 Potassium 4.7 D Chloride 110 H Carbon Dioxide 27 BUN 19 H Creatinine 1.20 Calcium 9.3 Liver Function 06/01/24 Range/Units 22:42 Total Bilirubin 0.4 (0.0-1.0) mg/dL AST 20 (5-31) U/L ALT 12 (0-31) U/L Alkaline Phosphatase 77 (39-117) U/L Albumin 3.9 (3.5-5.0) g/dL All other labs normal. Assessment and Plan (1) Cholelithiasis: Status: Acute (2) Biliary colic: Status: Acute Plan The presents with diagnosis is of biliary colic. Based on negative sonographic and clinical Parekh's sign, no evidence of acute cholecystitis. Current plan is to arrange for a HIDA scan indirect further studies and interventions based on these results. Patient will be a very suboptimal operative candidate and if indeed she does have acute cholecystitis, interventional radiologic drainage would be recommended of the gallbladder Procedures Date of Service Date of Service: 06/02/24
--- NOTE | 2024-06-02 15:22 | MHC.CM.PN ---
PT LIVES WITH SON HER DGTER LIVES DOWNSTAIRS ,.SHE HAS A PLANT DIRECTOR AND WILL NEED AN AMB RIDE HOME DC PLAN HOME
[2024-06-02 15:46] VITALS: BP 116/69; PULSE 94; RESP 14; TEMP 37.8; O2SAT 93
[2024-06-02] MEDS: metroNIDAZOLE/NS 500 MG/100 ML PIGGYBACK 100 MG IV (17:06)
[2024-06-02] MEDS: cefTRIAXone sodium 1 GM in 0.9 % Sodium Chloride 50 ML IV (18:08)
[2024-06-02 19:21] VITALS: BP 144/67; PULSE 82; RESP 18; TEMP 36.8; O2SAT 100
[2024-06-02] MEDS: dilTIAZem HCL 30 MG TABLET PO (21:29)
[2024-06-02] MEDS: 0.9 % Sodium Chloride Flush 3 ML SYRINGE IVFLUSH (21:33)
[2024-06-03] MEDS: metroNIDAZOLE/NS 500 MG/100 ML PIGGYBACK 100 MG IV ×3 (00:46→16:10)
[2024-06-03 03:24] VITALS: BP 136/63; PULSE 75; RESP 18; TEMP 36.8; O2SAT 100
[2024-06-03 05:59] LABS: MANUAL DIFF FLAG NO
[2024-06-03 06:31] LABS: Anion Gap 11 (12-20); Blood Urea Nitrogen 14 mg/dL (9-16); Calcium 8.6 mg/dL (8.4-10.2); Carbon Dioxide 27 mmol/L (22-29); Chloride 111 mmol/L (96-108); Creatinine Clr Calc Pharmacy 48.6; Estimated Glomerular Filt Rate > 60; Glucose Random 81 mg/dL (60-115); Magnesium 1.9 mg/dL (1.6-2.6); Potassium 4.5 mmol/L (3.3-5.1); Sodium 144 mmol/L (135-145)
[2024-06-03 07:05] LABS: Basophils Percent Auto 0.3 % (0-2); Eosinophils Absolute Auto 0.1 X10*3/uL (0.0-0.4); Eosinophils Percent Auto 0.8 % (0-4); Hematocrit 34.6 % (37.0-47.0); Hemoglobin 11.3 g/dl (12.0-16.0); Imm Gran Abs Auto 0.04 X10*3/uL (0.00-0.03); Imm Gran Pct Auto 0.4 % (0.0-0.4); Lymphocytes Absolute Auto 1.3 X10*3/uL (1.2-4.9); Lymphocytes Percent Auto 11.6 % (20-40); Mean Corpuscular HGB Conc 32.7 g/dl (31.0-35.0); Mean Corpuscular Hemoglobin 29.4 pg (27.0-33.0); Mean Corpuscular Volume 90.1 fL (80.0-98.0); Mean Platelet Volume 11.6 fL (9.4-12.3); Monocytes Absolute Auto 0.8 X10*3/uL (0.1-1.2); Neutrophils Absolute Auto 8.7 x10*3/uL (2.0-8.3); Neutrophils Percent Auto 79.9 % (45-73); Platelet Count 178 X10*3/uL (160-400); Red Blood Count 3.84 X10*6/uL (4.20-5.50); Red Cell Distribution Width 14.6 % (11.0-16.0); White Blood Count 10.8 X10*3/uL (4.8-10.8)
[2024-06-03 07:38] VITALS: BP 150/67; PULSE 83; RESP 16; TEMP 36.8; O2SAT 99
[2024-06-03 07:57] LABS: Alanine Aminotransferase 222 U/L (0-31); Alkaline Phosphatase 99 U/L (39-117); Aspartate Amino Transferase 212 U/L (5-31); Bilirubin Direct 1.4 mg/dL (0.0-0.5); Bilirubin Total 2.5 mg/dL (0.0-1.0); Total Protein 6.5 g/dL (6.5-8.0)
--- NOTE | 2024-06-03 09:23 | P.PNGS_ITS ---
Subjective Subjective Date of Service: 06/03/24 Interval history: Confused this morning. Physical Exam 2 Vital Signs: Vital Signs: Last Vital Signs Temp 98.2 F 06/03/24 07:38 Pulse 83 06/03/24 07:38 Resp 16 06/03/24 07:38 BP 150/67 H 06/03/24 07:38 Pulse Ox 99 06/03/24 07:38 O2 Del Method Nasal Cannula 06/03/24 07:38 O2 Flow Rate 2 06/03/24 07:38 BMI result Body Mass Index 36.3 Const: General: no acute distress and alert GI: Other: corpulent abdomen Palpation (GI): Tenderness to palpation present (GI) in the RUQ (marked), Guarding due to palpation present (GI) (voluntary RUQ) and not rigid Skin: General skin exam: no rashes or lesions noted and no jaundice Neuro: General: moves all extremities Objective Data Active Medications Albuterol Sulfate (Albuterol Sulfate 90 Mcg 8 Gm Inhaler) 2 puff INHALE RQ4H PRN PRN Reason: sob Diltiazem HCl (Diltiazem Hcl 30 Mg Tablet) 30 mg PO QID [facility]; Protocol Last Admin: 06/02/24 21:29 Dose: 30 mg Documented By: FARHANA Hydromorphone HCl (Hydromorphone Hcl 0.5 Mg/0.5 Ml Syringe) 0.5 mg IVPUSH Q6H PRN; Protocol PRN Reason: Pain, Severe (Pain Scale 7-10) Lactated Ringer's (Lr) 1,000 mls @ 80 mls/hr IVCONT .[id number] [facility] Last Admin: 06/02/24 21:15 Dose: 80 mls/hr Documented By: FARHANA Levetiracetam (Keppra) 500 mg in 100 mls @ 400 mls/hr IV Q12H [facility] Last Infusion: 06/02/24 21:58 Dose: Infused Documented By: FARHANA Metronidazole (Flagyl) 500 mg in 100 mls @ 100 mls/hr IV Q8H [facility] Last Infusion: 06/03/24 02:02 Dose: Infused Documented By: FARHANA Ceftriaxone Sodium 1 gm/ (Sodium Chloride) 50 mls @ 100 mls/hr IV Q24H [facility] Last Infusion: 06/02/24 18:41 Dose: Infused Documented By: MICHELLE Melatonin (Melatonin 3 Mg Tablet) 6 mg PO BEDTIME PRN PRN Reason: Insomnia Ondansetron HCl (Ondansetron Hcl 4 Mg/2 Ml Vial) 4 mg IVPUSH Q4H PRN PRN Reason: Nausea and Vomiting Sodium Chloride (0.9 % Sodium Chloride Flush 3 Ml Syringe) 3 ml IVFLUSH QSHIFT [facility] Last Admin: 06/03/24 07:23 Dose: Not Given Documented By: MICHELLE Non-Admin Reason: IV Running Labs 06/03/24 05:36 06/03/24 05:36 Labs: Laboratory Results - last 24 hr 06/03/24 05:36 MCV 90.1 MCH 29.4 MCHC 32.7 RDW 14.6 Plt Count 178 D MPV 11.6 Immature Gran % (Auto) 0.4 Neut % (Auto) 79.9 H Lymph % (Auto) 11.6 L [place] % (Auto) 7.0 Eos % (Auto) 0.8 Baso % (Auto) 0.3 Lymph # (Auto) 1.3 [place] # (Auto) 0.8 Eos # (Auto) 0.1 Baso # (Auto) 0.0 Abs Immat Gran (auto) 0.04 H Absolute Neuts (auto) 8.7 H Absolute Nucleated RBC 0.000 Nucleated RBC % (auto) 0.0 Anion Gap 11 L Estim Creat Clear Calc 48.6 Estimated GFR > 60 Random Glucose 81 Calcium 8.6 D Magnesium 1.9 Total Bilirubin 2.5 H Direct Bilirubin 1.4 H AST 212 H ALT 222 H Alkaline Phosphatase 99 Total Protein 6.5 Albumin 3.0 L Procedures Date of Service Date of Service: 06/03/24 Progress Note: A&P Assessment and plan (1) Acute cholecystitis: Status: Acute Plan HIDA positive yesterday, no improvement on IV abx alone as she remains markedly tender in the RUQ. Would benefit from cholecystostomy tube placement which has been ordered. Time Spent With Patient Time: Total time managing care of this patient today ____ minutes. Quality Stroke Does the patient have a stroke diagnosis?: No VTE Prior VTE?: No VTE Risk Level:: Medical - moderate - high VTE Device Contraindication: Treatment Not Indicated VTE Drug Contraindication: Treatment Not Indicated
--- NOTE | 2024-06-03 09:23 | PM.EVENT ---
Event Note Date of Service: 06/03/24 Event Note: HIDA scan reviewed. WBC rising with left shift, elevated LFTs and bilirubins also noted today. Consent obtained from daughter(HCR)for cholecystostomy tube. In procedure room, patient was uncooperative, and combative, therefore, procedure was aborted due to patient and staff safety. Will need assistance of anesthesia department. D/W medical attending. Time Spent With Patient Time: Total time managing care of this patient today ____ minutes.
[2024-06-03] MEDS: Lactated Ringers 1,000 ML 80 ML IVCONT ×2 (09:26→21:02)
--- NOTE | 2024-06-03 09:37 | PC.NURSE ---
pt refusing media reporter, Dr Burton aware.
[2024-06-03] MEDS: levETIRAcetam in NaCl (iso-os) 500 MG/100 ML PIGGYBACK 400 MG IV (10:26)
--- NOTE | 2024-06-03 12:11 | HO.PM.IMPN ---
Subjective Subjective Date of Service: 06/03/24 Interval History: Seen in f/u for abdominal pain/cholecystitis and concern for early cholangitis Pt was uncooperative with IR guided drain and there is recommendation to do it under anesthesia anesthesia may not be able to get it done until am d/t scheduling. Pt looks comfortable at the moment vital stable, no fever, nl wbc but lfts are trending up Physical Exam Vital Signs: Vital Signs: Last Vital Signs Temp 98.2 F 06/03/24 07:38 Pulse 83 06/03/24 07:38 Resp 16 06/03/24 07:38 BP 150/67 H 06/03/24 07:38 Pulse Ox 99 06/03/24 07:38 O2 Del Method Nasal Cannula 06/03/24 07:38 O2 Flow Rate 2 06/03/24 07:38 BMI result Body Mass Index 36.3 Const: Other: General: Alert but confused Resp: CTA bilateral CVS: S1,S2,RRR GI: +BS, NT, no distention, ruq tenderness, + lieberman's Skin: No rash Neuro: motor grossly intact Psych: appropriate affect Objective Data Active Medications Albuterol Sulfate (Albuterol Sulfate 90 Mcg 8 Gm Inhaler) 2 puff INHALE RQ4H PRN PRN Reason: sob Diltiazem HCl (Diltiazem Hcl 30 Mg Tablet) 30 mg PO QID [facility]; Protocol Last Admin: 06/03/24 09:25 Dose: Not Given Documented By: MICHELLE Non-Admin Reason: Patient Refused Hydromorphone HCl (Hydromorphone Hcl 0.5 Mg/0.5 Ml Syringe) 0.5 mg IVPUSH Q6H PRN; Protocol PRN Reason: Pain, Severe (Pain Scale 7-10) Lactated Ringer's (Lr) 1,000 mls @ 80 mls/hr IVCONT .[id number] [facility] Last Admin: 06/03/24 09:26 Dose: 80 mls/hr Documented By: MICHELLE Levetiracetam (Keppra) 500 mg in 100 mls @ 400 mls/hr IV Q12H [facility] Last Infusion: 06/03/24 10:50 Dose: Infused Documented By: MICHELLE Metronidazole (Flagyl) 500 mg in 100 mls @ 100 mls/hr IV Q8H [facility] Last Infusion: 06/03/24 10:31 Dose: Infused Documented By: MICHELLE Ceftriaxone Sodium 1 gm/ (Sodium Chloride) 50 mls @ 100 mls/hr IV Q24H [facility] Last Infusion: 06/02/24 18:41 Dose: Infused Documented By: MICHELLE Melatonin (Melatonin 3 Mg Tablet) 6 mg PO BEDTIME PRN PRN Reason: Insomnia Ondansetron HCl (Ondansetron Hcl 4 Mg/2 Ml Vial) 4 mg IVPUSH Q4H PRN PRN Reason: Nausea and Vomiting Sodium Chloride (0.9 % Sodium Chloride Flush 3 Ml Syringe) 3 ml IVFLUSH QSHIFT [facility] Last Admin: 06/03/24 07:23 Dose: Not Given Documented By: MICHELLE Non-Admin Reason: IV Running Labs 06/03/24 05:36 06/03/24 05:36 Labs: Laboratory Results - last 24 hr 06/03/24 05:36 MCV 90.1 MCH 29.4 MCHC 32.7 RDW 14.6 Plt Count 178 D MPV 11.6 Immature Gran % (Auto) 0.4 Neut % (Auto) 79.9 H Lymph % (Auto) 11.6 L [place] % (Auto) 7.0 Eos % (Auto) 0.8 Baso % (Auto) 0.3 Lymph # (Auto) 1.3 [place] # (Auto) 0.8 Eos # (Auto) 0.1 Baso # (Auto) 0.0 Abs Immat Gran (auto) 0.04 H Absolute Neuts (auto) 8.7 H Absolute Nucleated RBC 0.000 Nucleated RBC % (auto) 0.0 Anion Gap 11 L Estim Creat Clear Calc 48.6 Estimated GFR > 60 Random Glucose 81 Calcium 8.6 D Magnesium 1.9 Total Bilirubin 2.5 H Direct Bilirubin 1.4 H AST 212 H ALT 222 H Alkaline Phosphatase 99 Total Protein 6.5 Albumin 3.0 L Assessment and Plan (1) Cholelithiasis: Status: Acute (2) Acute cholecystitis: Status: Acute Plan RUQ d/t cholecystitis ? early cholangitis, +HIDA, -LFT are trending up -Poor candiate for surgery d/t numerous comorbidities - Attempting to get IR guided cholecystoctomy, may need to be done under anesthesia d/t -NPO, IVF -continue IV antibiotics ( Ceftriaxone and Metronidazol) HTN -resume lisinopril at 20 -continue cardizem HLD -hold lipitor d/t elevated LFTs Overreactive bladder. Continue Myrbetriq. Hx of head bleed 10 years ago. On Keppra for seizure prophylaxis. Dementia--no formal diagnosis, no behavior issues Asthma. Only uses albuterol inhaler as needed. DVT prophylaxis: heparin, compression device Code status: Full Patient will need hospitalization for at least 2 midnights for abdominal pain secondary to cholelithiasis treatment with IV analgesia, IV fluids and possible surgery. Quality Stroke Does the patient have a stroke diagnosis?: No VTE Prior VTE?: No VTE Risk Level:: Medical - moderate - high VTE Device Contraindication: Treatment Not Indicated VTE Drug Contraindication: Treatment Not Indicated
[2024-06-03 13:38] VITALS: BP 192/86; PULSE 92
[2024-06-03] MEDS: dilTIAZem HCL 30 MG TABLET PO ×2 (13:38→16:12)
[2024-06-03] MEDS: lisinopriL 20 MG TABLET PO (13:38)
[2024-06-03 15:13] VITALS: BP 150/65; PULSE 85; RESP 16; TEMP 36.6; O2SAT 99
[2024-06-03] MEDS: cefTRIAXone sodium 1 GM in 0.9 % Sodium Chloride 50 ML IV (17:00)
[2024-06-03 19:03] VITALS: BP 156/71; PULSE 82; RESP 16; TEMP 36.1; O2SAT 99
[2024-06-03] MEDS: 0.9 % Sodium Chloride Flush 3 ML SYRINGE IVFLUSH (21:02)
--- NOTE | 2024-06-03 21:16 | MHC.PIE ---
p; pt refusing po med. note; pt confused at base and has been combative at times i; dr rice notified e; will cont to moniotor
[2024-06-04] VITALS (10 sets, daily range): BP systolic 138–187; BP diastolic 63–86; PULSE 76–94; RESP 16–20; TEMP 36.3–37.6; O2SAT 94–97
[2024-06-04] MEDS: metroNIDAZOLE/NS 500 MG/100 ML PIGGYBACK 100 MG IV ×3 (01:09→16:14)
[2024-06-04 06:43] LABS: Hematocrit 34.1 % (37.0-47.0); Hemoglobin 11.4 g/dl (12.0-16.0); Mean Corpuscular HGB Conc 33.4 g/dl (31.0-35.0); Mean Corpuscular Hemoglobin 29.2 pg (27.0-33.0); Mean Corpuscular Volume 87.4 fL (80.0-98.0); Mean Platelet Volume 11.1 fL (9.4-12.3); Platelet Count 182 X10*3/uL (160-400); Red Cell Distribution Width 13.9 % (11.0-16.0); White Blood Count 8.7 X10*3/uL (4.8-10.8)
[2024-06-04 07:03] LABS: Alanine Aminotransferase 145 U/L (0-31); Alkaline Phosphatase 135 U/L (39-117); Anion Gap 12 (12-20); Aspartate Amino Transferase 108 U/L (5-31); Bilirubin Total 1.6 mg/dL (0.0-1.0); Blood Urea Nitrogen 14 mg/dL (9-16); Calcium 8.7 mg/dL (8.4-10.2); Carbon Dioxide 25 mmol/L (22-29); Chloride 108 mmol/L (96-108); Creatinine Clr Calc Pharmacy 56.6; Estimated Glomerular Filt Rate > 60; Glucose Random 63 mg/dL (60-115); Potassium 3.9 mmol/L (3.3-5.1); Sodium 141 mmol/L (135-145); Total Protein 6.4 g/dL (6.5-8.0)
[2024-06-04] MEDS: Mirabegron 25 MG TAB.ER.24H PO (07:32)
[2024-06-04] MEDS: levETIRAcetam 500 MG TABLET PO ×2 (07:32→21:18)
[2024-06-04] MEDS: dilTIAZem HCL 30 MG TABLET PO ×3 (07:32→21:18)
[2024-06-04] MEDS: Calcium + Vitamin D 250 MG TABLET PO (07:32)
[2024-06-04] MEDS: lisinopriL 20 MG TABLET PO (07:33)
--- NOTE | 2024-06-04 09:42 | PM.PNGS ---
Subjective Subjective Date of Service: 06/04/24 Interval history: Denies significant pain. Physical Exam Vital Signs: Vital Signs: Last Vital Signs Temp 98.5 F 06/04/24 07:21 Pulse 86 06/04/24 07:21 Resp 16 06/04/24 07:21 BP 171/79 H 06/04/24 08:40 Pulse Ox 96 06/04/24 07:21 O2 Del Method Room Air 06/04/24 07:21 O2 Flow Rate 2 06/03/24 19:03 BMI result Body Mass Index 36.3 Const: General: no acute distress and alert Resp: Effort & Inspection: normal respiratory effort GI: Inspection: No distended Palpation (GI): Soft to palpation and Tenderness to palpation present (GI) in the RUQ Skin: General skin exam: no rashes or lesions noted and no jaundice Objective Data Active Medications Albuterol Sulfate (Albuterol Sulfate 90 Mcg 8 Gm Inhaler) 2 puff INHALE RQ4H PRN PRN Reason: sob Albuterol Sulfate (Albuterol Sulfate 90 Mcg 8 Gm Inhaler) 2 puff INHALE Q6H PRN PRN Reason: Shortness Of Breath Or Wheezing Artificial Tears (Artificial Tears 15 Ml Drops) 1 drop EYE-BOTH BID [facility] Last Admin: 06/04/24 07:32 Dose: Not Given Documented By: AKSHAT Non-Admin Reason: Patient Refused Calcium Carbonate/Cholecalciferol (Calcium + Vitamin D 250 Mg Tablet) 250 mg PO DAILY [facility] Last Admin: 06/04/24 07:32 Dose: 250 mg Documented By: AKSHAT Diltiazem HCl (Diltiazem Hcl 30 Mg Tablet) 30 mg PO QID [facility]; Protocol Last Admin: 06/04/24 07:32 Dose: 30 mg Documented By: AKSHAT Ergocalciferol (Ergocalciferol (Vitamin D2) 1,250 Mcg Capsule) 1,250 mcg PO FR [facility] Hydromorphone HCl (Hydromorphone Hcl 0.5 Mg/0.5 Ml Syringe) 0.5 mg IVPUSH Q6H PRN; Protocol PRN Reason: Pain, Severe (Pain Scale 7-10) Metronidazole (Flagyl) 500 mg in 100 mls @ 100 mls/hr IV Q8H [facility] Last Infusion: 06/04/24 08:44 Dose: Infused Documented By: AKSHAT Ceftriaxone Sodium 1 gm/ (Sodium Chloride) 50 mls @ 100 mls/hr IV Q24H [facility] Last Infusion: 06/03/24 17:31 Dose: Infused Documented By: MICHELLE Levetiracetam (Levetiracetam 500 Mg Tablet) 500 mg PO BID [facility] Last Admin: 06/04/24 07:32 Dose: 500 mg Documented By: AKSHAT Lisinopril (Lisinopril 20 Mg Tablet) 20 mg PO DAILY [facility]; Protocol Last Admin: 06/04/24 07:33 Dose: 20 mg Documented By: AKSHAT Melatonin (Melatonin 3 Mg Tablet) 6 mg PO BEDTIME PRN PRN Reason: Insomnia Mirabegron (Mirabegron 25 Mg Tab.Er.24h) 25 mg PO DAILY [facility] Last Admin: 06/04/24 07:32 Dose: 25 mg Documented By: AKSHAT Ondansetron HCl (Ondansetron Hcl 4 Mg/2 Ml Vial) 4 mg IVPUSH Q4H PRN PRN Reason: Nausea and Vomiting Sodium Chloride (0.9 % Sodium Chloride Flush 3 Ml Syringe) 3 ml IVFLUSH QSHIFT [facility] Last Admin: 06/04/24 07:32 Dose: Not Given Documented By: AKSHAT Non-Admin Reason: IV Running Labs 06/04/24 05:49 06/04/24 05:49 Labs: Laboratory Results - last 24 hr 06/04/24 05:49 MCV 87.4 MCH 29.2 MCHC 33.4 RDW 13.9 Plt Count 182 MPV 11.1 Absolute Nucleated RBC 0.000 Nucleated RBC % (auto) 0.0 Anion Gap 12 Estim Creat Clear Calc 56.6 Estimated GFR > 60 Random Glucose 63 Calcium 8.7 Total Bilirubin 1.6 H Direct Bilirubin 1.0 H AST 108 H ALT 145 H Alkaline Phosphatase 135 H Total Protein 6.4 L Albumin 3.0 L Procedures Date of Service Date of Service: 06/04/24 Progress Note: A&P Assessment and plan (1) Acute cholecystitis: Status: Acute Plan Presenting symptoms suggestive of acute cholecystitis with positive HIDA. Unable to perform IR perc drain yesterday due to combativeness of patient. She has persistent RUQ tenderness, elevated LFTs although slightly improved. Would benefit from cholecystostomy tube placement which is planned for today with anesthesia. Time Spent With Patient Time: Total time managing care of this patient today ____ minutes. Quality Stroke Does the patient have a stroke diagnosis?: No VTE Prior VTE?: No VTE Risk Level:: Medical - moderate - high VTE Device Contraindication: Treatment Not Indicated VTE Drug Contraindication: Treatment Not Indicated
--- NOTE | 2024-06-04 10:55 | HO.PM.IMPN ---
Subjective Subjective Date of Service: 06/04/24 Interval History: Seen in f/u for abdominal pain/cholecystitis and concern for early cholangitis Pt was uncooperative with IR guided drain and there is recommendation to do it under anesthesia which is being planned for today. She still has significant ruq tendernes, although lfts are trending down and no fever and wbc also normal Physical Exam Vital Signs: Vital Signs: Last Vital Signs Temp 98.5 F 06/04/24 07:21 Pulse 86 06/04/24 07:21 Resp 16 06/04/24 07:21 BP 171/79 H 06/04/24 08:40 Pulse Ox 96 06/04/24 07:21 O2 Del Method Room Air 06/04/24 07:21 O2 Flow Rate 2 06/03/24 19:03 BMI result Body Mass Index 36.3 Const: Other: General: Alert but confused Resp: CTA bilateral CVS: S1,S2,RRR GI: +BS, NT, no distention, ruq tenderness, + lieberman's Skin: No rash Neuro: motor grossly intact Psych: appropriate affect Objective Data Active Medications Albuterol Sulfate (Albuterol Sulfate 90 Mcg 8 Gm Inhaler) 2 puff INHALE RQ4H PRN PRN Reason: sob Albuterol Sulfate (Albuterol Sulfate 90 Mcg 8 Gm Inhaler) 2 puff INHALE Q6H PRN PRN Reason: Shortness Of Breath Or Wheezing Artificial Tears (Artificial Tears 15 Ml Drops) 1 drop EYE-BOTH BID [facility] Last Admin: 06/04/24 07:32 Dose: Not Given Documented By: AKSHAT Non-Admin Reason: Patient Refused Calcium Carbonate/Cholecalciferol (Calcium + Vitamin D 250 Mg Tablet) 250 mg PO DAILY [facility] Last Admin: 06/04/24 07:32 Dose: 250 mg Documented By: AKSHAT Diltiazem HCl (Diltiazem Hcl 30 Mg Tablet) 30 mg PO QID [facility]; Protocol Last Admin: 06/04/24 07:32 Dose: 30 mg Documented By: AKSHAT Ergocalciferol (Ergocalciferol (Vitamin D2) 1,250 Mcg Capsule) 1,250 mcg PO FR [facility] Hydromorphone HCl (Hydromorphone Hcl 0.5 Mg/0.5 Ml Syringe) 0.5 mg IVPUSH Q6H PRN; Protocol PRN Reason: Pain, Severe (Pain Scale 7-10) Metronidazole (Flagyl) 500 mg in 100 mls @ 100 mls/hr IV Q8H [facility] Last Infusion: 06/04/24 08:44 Dose: Infused Documented By: AKSHAT Ceftriaxone Sodium 1 gm/ (Sodium Chloride) 50 mls @ 100 mls/hr IV Q24H [facility] Last Infusion: 06/03/24 17:31 Dose: Infused Documented By: MICHELLE Levetiracetam (Levetiracetam 500 Mg Tablet) 500 mg PO BID [facility] Last Admin: 06/04/24 07:32 Dose: 500 mg Documented By: AKSHAT Lisinopril (Lisinopril 20 Mg Tablet) 20 mg PO DAILY [facility]; Protocol Last Admin: 06/04/24 07:33 Dose: 20 mg Documented By: AKSHAT Melatonin (Melatonin 3 Mg Tablet) 6 mg PO BEDTIME PRN PRN Reason: Insomnia Mirabegron (Mirabegron 25 Mg Tab.Er.24h) 25 mg PO DAILY [facility] Last Admin: 06/04/24 07:32 Dose: 25 mg Documented By: AKSHAT Ondansetron HCl (Ondansetron Hcl 4 Mg/2 Ml Vial) 4 mg IVPUSH Q4H PRN PRN Reason: Nausea and Vomiting Sodium Chloride (0.9 % Sodium Chloride Flush 3 Ml Syringe) 3 ml IVFLUSH QSHIFT [facility] Last Admin: 06/04/24 07:32 Dose: Not Given Documented By: AKSHAT Non-Admin Reason: IV Running Labs 06/04/24 05:49 06/04/24 05:49 Labs: Laboratory Results - last 24 hr 06/04/24 05:49 MCV 87.4 MCH 29.2 MCHC 33.4 RDW 13.9 Plt Count 182 MPV 11.1 Absolute Nucleated RBC 0.000 Nucleated RBC % (auto) 0.0 Anion Gap 12 Estim Creat Clear Calc 56.6 Estimated GFR > 60 Random Glucose 63 Calcium 8.7 Total Bilirubin 1.6 H Direct Bilirubin 1.0 H AST 108 H ALT 145 H Alkaline Phosphatase 135 H Total Protein 6.4 L Albumin 3.0 L Assessment and Plan (1) Cholelithiasis: Status: Acute (2) Acute cholecystitis: Status: Acute Plan 88/F with RUQ pain d/t cholecystitis ? early cholangitis, +HIDA, -LFT are trending down including bili, nl wbc -Poor candiate for surgery d/t numerous comorbidities - For IR guided cholecystoctomy with anesthesia help today -NPO, IVF -continue IV antibiotics ( Ceftriaxone and Metronidazole) HTN -Lisinopril and cardizem HLD -hold lipitor d/t elevated LFTs Overreactive bladder. Continue Myrbetriq. Hx of head bleed 10 years ago. On Keppra for seizure prophylaxis. Dementia--no formal diagnosis, no behavior issues Asthma. Only uses albuterol inhaler as needed. DVT prophylaxis: heparin, compression device Code status: Full need for inpatient: iv abx for cholecystitis, need for cholecystoctomy Plan discussed with son with public health sanitarian technician and agree with the above mention procedure Quality Stroke Does the patient have a stroke diagnosis?: No VTE Prior VTE?: No VTE Risk Level:: Medical - moderate - high VTE Device Contraindication: Treatment Not Indicated VTE Drug Contraindication: Treatment Not Indicated
--- NOTE | 2024-06-04 12:35 | P.CONAN_ITS ---
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 Mother No problems noted. Family history of problems with anesthesia: No Surgical History Surgical History History of aortic aneurysm repair History of cataract extraction History of Problems with Anesthesia: No Social History Social History Household Members: Unknown / Unable to assess Household Members Other:: Daughter [phone] Neema, Son [phone], Bill Housing: Unknown / Unable to assess Alcohol intake: never Patient Tobacco Use Status: Never used Tobacco Second Hand Smoke Exposure: No service: No Meds Allergies Allergy/AdvReac Type Severity Reaction Status Date / Time Fish Containing Products Allergy Mild RASH Verified 06/01/24 22:31 Penicillins Allergy Mild RASH Verified 06/01/24 22:31 seafood Allergy Mild Rash Uncoded 10/13/21 12:35 Active Medications: Current Medications Albuterol Sulfate (Albuterol Sulfate 90 Mcg 8 Gm Inhaler) 2 puff INHALE RQ4H PRN PRN Reason: sob Albuterol Sulfate (Albuterol Sulfate 90 Mcg 8 Gm Inhaler) 2 puff INHALE Q6H PRN PRN Reason: Shortness Of Breath Or Wheezing Artificial Tears (Artificial Tears 15 Ml Drops) 1 drop EYE-BOTH BID [facility] Last Admin: 06/04/24 07:32 Dose: Not Given Calcium Carbonate/Cholecalciferol (Calcium + Vitamin D 250 Mg Tablet) 250 mg PO DAILY [facility] Last Admin: 06/04/24 07:32 Dose: 250 mg Diltiazem HCl (Diltiazem Hcl 30 Mg Tablet) 30 mg PO QID [facility]; Protocol Last Admin: 06/04/24 12:01 Dose: Not Given Ergocalciferol (Ergocalciferol (Vitamin D2) 1,250 Mcg Capsule) 1,250 mcg PO FR [facility] Hydromorphone HCl (Hydromorphone Hcl 0.5 Mg/0.5 Ml Syringe) 0.5 mg IVPUSH Q6H PRN; Protocol PRN Reason: Pain, Severe (Pain Scale 7-10) Metronidazole (Flagyl) 500 mg in 100 mls @ 100 mls/hr IV Q8H [facility] Last Infusion: 06/04/24 08:44 Dose: Infused Ceftriaxone Sodium 1 gm/ (Sodium Chloride) 50 mls @ 100 mls/hr IV Q24H [facility] Last Infusion: 06/03/24 17:31 Dose: Infused Levetiracetam (Levetiracetam 500 Mg Tablet) 500 mg PO BID [facility] Last Admin: 06/04/24 07:32 Dose: 500 mg Lisinopril (Lisinopril 20 Mg Tablet) 20 mg PO DAILY [facility]; Protocol Last Admin: 06/04/24 07:33 Dose: 20 mg Melatonin (Melatonin 3 Mg Tablet) 6 mg PO BEDTIME PRN PRN Reason: Insomnia Mirabegron (Mirabegron 25 Mg Tab.Er.24h) 25 mg PO DAILY [facility] Last Admin: 06/04/24 07:32 Dose: 25 mg Ondansetron HCl (Ondansetron Hcl 4 Mg/2 Ml Vial) 4 mg IVPUSH Q4H PRN PRN Reason: Nausea and Vomiting Sodium Chloride (0.9 % Sodium Chloride Flush 3 Ml Syringe) 3 ml IVFLUSH QSHIFT [facility] Last Admin: 06/04/24 07:32 Dose: Not Given Home Medications ?Medication ?Instructions ?Recorded ?Confirmed ?Last Taken ?Type furosemide 40 mg tablet 1 tab PO BID@0700,1400 06/26/20 06/02/24 Unknown History lisinopril 40 mg tablet 40 mg PO DAILY 06/26/20 06/02/24 Unknown History mirabegron 25 mg tablet,extended 25 mg PO DAILY 06/26/20 06/02/24 Unknown History release 24 hr (Myrbetriq) peg [id number] 1 1 drp ophthalmic (eye) BID dry eyes 06/26/20 06/02/24 Unknown History %-0.2 %-0.2 % eye drops (Artificial Tears ([id number])) atorvastatin 20 mg tablet 20 mg PO DAILY 01/12/21 06/02/24 Unknown History calcium carbonate 500 mg-vitamin 1 tab PO DAILY 01/12/21 06/02/24 Unknown History D3 5 mcg (200 unit) tablet diltiazem HCl 360 mg 360 mg PO DAILY 01/12/21 06/02/24 Unknown History capsule,extended release 24 hr albuterol sulfate 90 mcg/actuation 2 inh inhalation Q6H PRN Shortness 06/02/24 06/02/24 Unknown History aerosol inhaler (Ventolin HFA) Of Breath Or Wheezing ergocalciferol (vitamin D2) 1,250 1,250 mcg PO FR 06/02/24 06/02/24 Unknown History mcg (50,000 unit) capsule levetiracetam 500 mg tablet 500 mg PO BID 06/02/24 06/02/24 Unknown History risedronate 35 mg tablet 35 mg PO FR 06/02/24 06/02/24 Unknown History Exam Height,Weight and Vital Signs: Height 5 ft 2 in Weight 90.1 kg Last Vital Signs Temp 97.4 F 06/04/24 12:25 Pulse 94 06/04/24 12:25 Resp 16 06/04/24 12:25 BP 155/83 H 06/04/24 12:25 Pulse Ox 95 06/04/24 12:25 O2 Del Method Room Air 06/04/24 12:25 O2 Flow Rate 2 06/03/24 19:03 Pertinent Lab Results Pertinent Lab Results: Laboratory Tests 06/01/24 06/02/24 06/03/24 22:42 07:46 05:36 WBC 9.1 10.8 RBC 4.42 3.84 L Hgb 12.8 11.3 L Hct 38.4 34.6 L MCV 86.9 90.1 MCH 29.0 29.4 MCHC 33.3 32.7 RDW 14.4 14.6 Plt Count 242 178 D MPV 11.1 11.6 Immature Gran % (Auto) 0.2 0.4 Neut % (Auto) 72.2 79.9 H Lymph % (Auto) 20.3 11.6 L [place] % (Auto) 6.3 7.0 Eos % (Auto) 0.7 0.8 Baso % (Auto) 0.3 0.3 Lymph # (Auto) 1.9 1.3 [place] # (Auto) 0.6 0.8 Eos # (Auto) 0.1 0.1 Baso # (Auto) 0.0 0.0 Abs Immat Gran (auto) 0.02 0.04 H Absolute Neuts (auto) 6.6 8.7 H Absolute Nucleated RBC 0.000 0.000 Nucleated RBC % (auto) 0.0 0.0 Hold Blue Top SEE NOTE Sodium 145 144 Potassium 4.7 D 4.5 Chloride 110 H 111 H Carbon Dioxide 27 27 Anion Gap 13 11 L BUN 19 H 14 Creatinine 1.20 0.85 Estim Creat Clear Calc 34.4 48.6 Estimated GFR 42 > 60 POC Glucose 112 Random Glucose 126 H 81 Calcium 9.3 8.6 D Magnesium 2.1 1.9 Total Bilirubin 0.4 2.5 H Direct Bilirubin 1.4 H AST 20 212 H ALT 12 222 H Alkaline Phosphatase 77 99 Troponin I High Sens 5.4 B-Natriuretic Peptide 319 H Total Protein 8.0 6.5 Albumin 3.9 3.0 L Lipase 31 Influenza Type A (PCR) NEGATIVE Influenza Type B (PCR) NEGATIVE RSV RNA Qual (PCR) NEGATIVE SARS-CoV-2 RNA (RT-PCR) NEGATIVE 06/04/24 05:49 WBC 8.7 RBC 3.90 L Hgb 11.4 L Hct 34.1 L MCV 87.4 MCH 29.2 MCHC 33.4 RDW 13.9 Plt Count 182 MPV 11.1 Immature Gran % (Auto) Neut % (Auto) Lymph % (Auto) [place] % (Auto) Eos % (Auto) Baso % (Auto) Lymph # (Auto) [place] # (Auto) Eos # (Auto) Baso # (Auto) Abs Immat Gran (auto) Absolute Neuts (auto) Absolute Nucleated RBC 0.000 Nucleated RBC % (auto) 0.0 Hold Blue Top Sodium 141 Potassium 3.9 Chloride 108 Carbon Dioxide 25 Anion Gap 12 BUN 14 Creatinine 0.73 Estim Creat Clear Calc 56.6 Estimated GFR > 60 POC Glucose Random Glucose 63 Calcium 8.7 Magnesium Total Bilirubin 1.6 H Direct Bilirubin 1.0 H AST 108 H ALT 145 H Alkaline Phosphatase 135 H Troponin I High Sens B-Natriuretic Peptide Total Protein 6.4 L Albumin 3.0 L Lipase Influenza Type A (PCR) Influenza Type B (PCR) RSV RNA Qual (PCR) SARS-CoV-2 RNA (RT-PCR) Airway Mallampati Class: Patient Non-Cooperative TM Dist: <=3cm Neck ROM: Full Denture: Upper Heart: ok Lungs: SpO2 95% room air Assessment and Plan Assessment Anesthesia Assessment: Anesthesia Plan Discussed and Chart Reviewed Final Anesthetic Review Family History of Problems with Anesthesia: No History of Problems with Anesthesia: No NPO: Yes ASA Class: IV Final Preanesthetic Review: No Changes in Pt Med Stat, Meds/Allgs Chart Reviewed, Consent Obtained/Reviewed and Anes Risks/Benef Reviewed Patient Risk: High Procedure Risk: Intermediate Anesthetic Plan Anesthetic Plan: MAC: and Agree w/ Assess. and Plan Disposition: Standard PACU
--- NOTE | 2024-06-04 13:00 | MHC.CM.PN ---
EMR reviewed and per MD rounds, pt is not medically cleared for discharge due to pending cholecystectomy tube placement today.
--- NOTE | 2024-06-04 13:48 | PM.PROC ---
Brief Operative Note Date of procedure: 06/04/24 Pre-op diagnosis: Acute cholecystitis Post-op diagnosis: same Procedure: Cholecystostomy tube 8.5 fr drain placed under US and FL. 60 cc turbid brown fluid aspirated and sent for culture. No immediate complications. Anesthesia: MAC
[2024-06-04] MEDS: 0.9 % Sodium Chloride Flush 3 ML SYRINGE IVFLUSH (16:15)
[2024-06-04] MEDS: HYDROmorphone HCl 0.5 MG/0.5 ML SYRINGE IVPUSH (16:23)
[2024-06-04] MEDS: cefTRIAXone sodium 1 GM in 0.9 % Sodium Chloride 50 ML IV (18:27)
--- NOTE | 2024-06-04 19:25 | PHA.PROG ---
Admission Date/Time: June 02, 2024 05:16 Indication: Intra-abdominal Weight in k.1 kg Adjusted body weight in Kg: [place] body weight in Kg: Obesity Dosing Indication % IBW: Serum Creatinine - Last 168 Hours 06/01/24 06/03/24 06/04/24 22:42 05:36 05:49 Creatinine 1.20 0.85 0.73 Estimated CrCl and GFR - Last 168 Hours 06/01/24 06/03/24 06/04/24 22:42 05:36 05:49 Estim Creat Clear Calc 34.4 48.6 56.6 Estimated GFR 42 > 60 > 60 Vancomycin Loading Dose: 1500 mg Current Vancomycin Dosing Regimen: 750mg q12h Vancomycin Monitoring using AUC goal of 400 - 600 range with trough as surrogate marker: 443 mg/L Date and Time for next Vancomycin Level to be drawn: 06/05/24 @1800 Pharmacist Comments on Vancomycin Plan: Will give a loading dose of 1.5g then start 750mg q12h tomorrow. Trough due before third dose. Vancomycin dosing will take advantage of [employer] as a clinical decision support tool that uses Bayesian modeling to calculate individual patient's pharmacokinetic parameters and forecast the patient's drug concentration time course with the target goal AUC 24 range of 400 - 600 mg/L/hr.
[2024-06-04] MEDS: vancomycin HCL 1,500 MG in 0.9 % Sodium Chloride 500 ML 333.33 MG IV (20:45)
[2024-06-05] VITALS (9 sets, daily range): BP systolic 142–185; BP diastolic 63–79; PULSE 81–89; RESP 14–18; TEMP 36.1–37.1; O2SAT 93–96
[2024-06-05] MEDS: 0.9 % Sodium Chloride Flush 3 ML SYRINGE IVFLUSH ×4 (00:08→20:10)
[2024-06-05] MEDS: metroNIDAZOLE/NS 500 MG/100 ML PIGGYBACK 100 MG IV (00:08)
[2024-06-05] MEDS: HYDROmorphone HCl 0.5 MG/0.5 ML SYRINGE IVPUSH (00:08)
[2024-06-05 06:59] LABS: Creatinine Clr Calc Pharmacy 54.4; Estimated Glomerular Filt Rate > 60
--- NOTE | 2024-06-05 07:34 | HE.PHANOTE ---
IV TO PO CONVERSION 06/05/24 METRONIDAZOLE 500MG Q 8H IV PATIENT CURRENTLY HAS FUNCTIONAL GI TRACT TAKING OTHER PO MEDICATIONS. NO FEVER, NORMAL WBC, HAS BEEN ON IV SINCE 06/02 ORDER ADDED FOR METRONIDAZOLE 500MG PO NEXT DOSE ADDED FOR 06/05 @ 0900
--- NOTE | 2024-06-05 08:11 | P.PNGS_ITS ---
Subjective Subjective Date of Service: 06/05/24 <Delphine Green PA-C - Last Filed: 06/05/24 08:15> 06/05/24 <Dustin Pollard MD - Last Filed: 06/05/24 08:31> Interval history: S/p cholecystostomy tube yesterday. Denies pain. <PATRICIA Tran - Last Filed: 06/05/24 08:15> Physical Exam 2 Vital Signs: Vital Signs: Last Vital Signs Temp 98.1 F 06/05/24 07:11 Pulse 82 06/05/24 07:11 Resp 18 06/05/24 07:11 BP 163/68 H 06/05/24 07:11 Pulse Ox 95 06/05/24 07:11 O2 Del Method Room Air 06/05/24 07:11 O2 Flow Rate 2 06/03/24 19:03 BMI result Body Mass Index 36.3 <Delphine Green PA-C - Last Filed: 06/05/24 08:15> Const: General: comfortable, no acute distress and alert <Delphine Green PA-C - Last Filed: 06/05/24 08:15> Resp: Effort & Inspection: normal respiratory effort <TAWANNA Tran Last Filed: 06/05/24 08:15> GI: Other: large amount of bilious drainage in BROOK RUQ tenderness much improved <Delphine Green PA-C - Last Filed: 06/05/24 08:15> Palpation (GI): Soft to palpation and no guarding <Delphine Green PA-C - Last Filed: 06/05/24 08:15> Skin: General skin exam: no rashes or lesions noted and no jaundice < TAWANNA Tran Last Filed: 06/05/24 08:15> Objective Data Active Medications Albuterol Sulfate (Albuterol Sulfate 90 Mcg 8 Gm Inhaler) 2 puff INHALE RQ4H PRN PRN Reason: sob Albuterol Sulfate (Albuterol Sulfate 90 Mcg 8 Gm Inhaler) 2 puff INHALE Q6H PRN PRN Reason: Shortness Of Breath Or Wheezing Artificial Tears (Artificial Tears 15 Ml Drops) 1 drop EYE-BOTH BID [facility] Last Admin: 06/04/24 21:20 Dose: Not Given Documented By: AYALA Non-Admin Reason: Patient Refused Calcium Carbonate/Cholecalciferol (Calcium + Vitamin D 250 Mg Tablet) 250 mg PO DAILY [facility] Last Admin: 06/04/24 07:32 Dose: 250 mg Documented By: AKSHAT Diltiazem HCl (Diltiazem Hcl 30 Mg Tablet) 30 mg PO QID [facility]; Protocol Last Admin: 06/04/24 21:18 Dose: 30 mg Documented By: AYALA Ergocalciferol (Ergocalciferol (Vitamin D2) 1,250 Mcg Capsule) 1,250 mcg PO FR [facility] Hydromorphone HCl (Hydromorphone Hcl 0.5 Mg/0.5 Ml Syringe) 0.5 mg IVPUSH Q6H PRN; Protocol PRN Reason: Pain, Severe (Pain Scale 7-10) Last Admin: 06/05/24 00:08 Dose: 0.5 mg Documented By: AYALA Ceftriaxone Sodium 1 gm/ (Sodium Chloride) 50 mls @ 100 mls/hr IV Q24H [facility] Last Infusion: 06/04/24 19:06 Dose: Infused Documented By: AYALA Vancomycin HCl 750 mg/ Sodium (Chloride) 265 mls @ 265 mls/hr IV Q12H [facility] Levetiracetam (Levetiracetam 500 Mg Tablet) 500 mg PO BID [facility] Last Admin: 06/04/24 21:18 Dose: 500 mg Documented By: AYALA Lisinopril (Lisinopril 20 Mg Tablet) 20 mg PO DAILY [facility]; Protocol Last Admin: 06/04/24 07:33 Dose: 20 mg Documented By: AKSHAT Melatonin (Melatonin 3 Mg Tablet) 6 mg PO BEDTIME PRN PRN Reason: Insomnia Metronidazole (Metronidazole 500 Mg Tablet) 500 mg PO Q8H [facility] Mirabegron (Mirabegron 25 Mg Tab.Er.24h) 25 mg PO DAILY [facility] Last Admin: 06/04/24 07:32 Dose: 25 mg Documented By: AKSHAT Naloxone HCl (Naloxone Hcl 0.4 Mg/Ml Vial) 0.04 mg IVPUSH Q5M PRN PRN Reason: Excessive sedation or RR < 8 Ondansetron HCl (Ondansetron Hcl 4 Mg/2 Ml Vial) 4 mg IVPUSH Q4H PRN PRN Reason: Nausea and Vomiting Pharmacy Consult (Consult Rx Vancomycin Dosing) 1 each MISCELLANE DAILY PRN PRN Reason: Consult order Sodium Chloride (0.9 % Sodium Chloride Flush 3 Ml Syringe) 3 ml IVFLUSH QSHIFT [facility] Last Admin: 06/05/24 00:08 Dose: 3 ml Documented By: AYALA <Delphine Green PA-C - Last Filed: 06/05/24 08:15> Labs CBC & Chem 7: 06/04/24 05:49 06/05/24 05:45 <Delphine Green PA-C - Last Filed: 06/05/24 08:15> Labs: Laboratory Results - last 24 hr 06/05/24 05:45 Estim Creat Clear Calc 54.4 Estimated GFR > 60 <Delphine Green PA-C - Last Filed: 06/05/24 08:15> Microbiology Microbiology Results: Microbiology 06/04/24 14:00 Gram Stain - Final Bile <Delphine Green PA-C - Last Filed: 06/05/24 08:15> Procedures Date of Service Date of Service: 06/05/24 <Delphine Green PA-C - Last Filed: 06/05/24 08:15> 06/05/24 <Dustin Pollard MD - Last Filed: 06/05/24 08:31> Progress Note: A&P Assessment and plan (1) Acute cholecystitis: Status: Acute <Delphine Green PA-C - Last Filed: 06/05/24 08:15> Assessment and Plan: S/p cholecystostomy tube yesterday. Abd exam improved this morning. Advanced diet as tolerated. If tolerating diet, stable for dc from surgical standpoint with drain in place. Can f/u in office in 1 week. <Delphine Green PA-C - Last Filed: 06/05/24 08:15> S/p cholecystostomy tube yesterday. Abd exam improved this morning. Advanced diet as tolerated. If tolerating diet, stable for dc from surgical standpoint with drain in place. Can f/u in office in 1 week. As noted above <Dustin Pollard MD - Last Filed: 06/05/24 08:31> Time Spent With Patient Time: Total time managing care of this patient today ____ minutes. <Delphine Green PA-C - Last Filed: 06/05/24 08:15> Quality Stroke Does the patient have a stroke diagnosis?: No <Delphine Green PA-C - Last Filed: 06/05/24 08:15> VTE Prior VTE?: No <Delphine Green PA-C - Last Filed: 06/05/24 08:15> VTE Risk Level:: Medical - moderate - high <Delphine Green PA-C - Last Filed: 06/05/24 08:15> VTE Device Contraindication: Treatment Not Indicated <Delphine Green PA-C - Last Filed: 06/05/24 08:15> VTE Drug Contraindication: Treatment Not Indicated <Delphine Green PA-C - Last Filed: 06/05/24 08:15>
[2024-06-05] MEDS: vancomycin HCL 750 MG in 0.9 % Sodium Chloride 250 ML 265 MG IV (08:27)
[2024-06-05] MEDS: dilTIAZem HCL 30 MG TABLET PO ×4 (08:28→19:56)
[2024-06-05] MEDS: levETIRAcetam 500 MG TABLET PO ×2 (08:28→20:04)
[2024-06-05] MEDS: Calcium + Vitamin D 250 MG TABLET PO (08:28)
[2024-06-05] MEDS: lisinopriL 20 MG TABLET PO (08:28)
[2024-06-05] MEDS: Artificial Tears 15 ML DROPS 1 DROP EYE-BOTH (08:28)
[2024-06-05] MEDS: Mirabegron 25 MG TAB.ER.24H PO (08:28)
[2024-06-05] MEDS: metroNIDAZOLE 500 MG TABLET PO ×2 (08:34→17:34)
--- NOTE | 2024-06-05 09:08 | HO.POSTANES ---
Post Anesthesia Evaluation Post Anesthesia Evaluation Date of Service: 06/04/24 Vital Signs: Vital Signs Temp Pulse Resp BP Pulse Ox O2 Del Method 06/05/24 07:11 98.1 F 82 18 163/68 H 95 Room Air 06/05/24 02:50 98.8 F 89 14 157/70 H 93 06/04/24 23:25 99.7 F 86 16 147/63 H 94 Room Air Anesthesia: Monitored Mental Status: Awake Pain Control: Satisfactory Nausea/Vomiting: None Hydration: Adequate Anesthesia-Related Issues: No Anes. Related Issues
--- NOTE | 2024-06-05 11:46 | P.PNIM_ITS ---
Subjective Subjective Date of Service: 06/05/24 Interval History: Seen in f/u for abdominal pain/cholecystitis and concern for early cholangitis s/p IR guided biliary drain yesterday, she if feeling better and hs little pain no fever Physical Exam 2 Vital Signs: Vital Signs: Last Vital Signs Temp 96.9 F 06/05/24 11:42 Pulse 83 06/05/24 11:42 Resp 18 06/05/24 11:42 BP 142/63 H 06/05/24 11:42 Pulse Ox 93 06/05/24 11:42 O2 Del Method Room Air 06/05/24 11:42 O2 Flow Rate 2 06/03/24 19:03 BMI result Body Mass Index 36.3 Const: Other: General: AO X 3, no acute distress Resp: CTA bilateral CVS: S1,S2,RRR GI: +BS, minimal tenderness , no distention Skin: No rash Neuro: motor grossly intact Psych: appropriate affect Objective Data Active Medications Albuterol Sulfate (Albuterol Sulfate 90 Mcg 8 Gm Inhaler) 2 puff INHALE RQ4H PRN PRN Reason: sob Albuterol Sulfate (Albuterol Sulfate 90 Mcg 8 Gm Inhaler) 2 puff INHALE Q6H PRN PRN Reason: Shortness Of Breath Or Wheezing Artificial Tears (Artificial Tears 15 Ml Drops) 1 drop EYE-BOTH BID [facility] Last Admin: 06/05/24 08:28 Dose: 1 drop Documented By: EUGENE Calcium Carbonate/Cholecalciferol (Calcium + Vitamin D 250 Mg Tablet) 250 mg PO DAILY [facility] Last Admin: 06/05/24 08:28 Dose: 250 mg Documented By: EUGENE Diltiazem HCl (Diltiazem Hcl 30 Mg Tablet) 30 mg PO QID [facility]; Protocol Last Admin: 06/05/24 08:28 Dose: 30 mg Documented By: EUGENE Ergocalciferol (Ergocalciferol (Vitamin D2) 1,250 Mcg Capsule) 1,250 mcg PO [facility] Hydromorphone HCl (Hydromorphone Hcl 0.5 Mg/0.5 Ml Syringe) 0.5 mg IVPUSH Q6H PRN; Protocol PRN Reason: Pain, Severe (Pain Scale 7-10) Last Admin: 06/05/24 00:08 Dose: 0.5 mg Documented By: AYALA Ceftriaxone Sodium 1 gm/ (Sodium Chloride) 50 mls @ 100 mls/hr IV Q24H [facility] Last Infusion: 06/04/24 19:06 Dose: Infused Documented By: AYALA Vancomycin HCl 750 mg/ Sodium (Chloride) 265 mls @ 265 mls/hr IV Q12H [facility] Last Infusion: 06/05/24 09:44 Dose: Infused Documented By: EUGENE Levetiracetam (Levetiracetam 500 Mg Tablet) 500 mg PO BID [facility] Last Admin: 06/05/24 08:28 Dose: 500 mg Documented By: EUGENE Lisinopril (Lisinopril 20 Mg Tablet) 20 mg PO DAILY [facility]; Protocol Last Admin: 06/05/24 08:28 Dose: 20 mg Documented By: EUGENE Melatonin (Melatonin 3 Mg Tablet) 6 mg PO BEDTIME PRN PRN Reason: Insomnia Metronidazole (Metronidazole 500 Mg Tablet) 500 mg PO Q8H [facility] Last Admin: 06/05/24 08:34 Dose: 500 mg Documented By: EUGENE Mirabegron (Mirabegron 25 Mg Tab.Er.24h) 25 mg PO DAILY [facility] Last Admin: 06/05/24 08:28 Dose: 25 mg Documented By: EUGENE Naloxone HCl (Naloxone Hcl 0.4 Mg/Ml Vial) 0.04 mg IVPUSH Q5M PRN PRN Reason: Excessive sedation or RR < 8 Ondansetron HCl (Ondansetron Hcl 4 Mg/2 Ml Vial) 4 mg IVPUSH Q4H PRN PRN Reason: Nausea and Vomiting Pharmacy Consult (Consult Rx Vancomycin Dosing) 1 each MISCELLANE DAILY PRN PRN Reason: Consult order Sodium Chloride (0.9 % Sodium Chloride Flush 3 Ml Syringe) 3 ml IVFLUSH QSHIFT [facility] Last Admin: 06/05/24 08:34 Dose: 3 ml Documented By: EUGENE Labs 06/04/24 05:49 06/05/24 05:45 Labs: Laboratory Results - last 24 hr 06/05/24 05:45 Estim Creat Clear Calc 54.4 Estimated GFR > 60 Microbiology Microbiology Results: Microbiology 06/04/24 14:00 Gram Stain - Final Bile Routine Culture - Preliminary Anaerobic Culture - Preliminary Culture in progress. Assessment and Plan (1) Cholelithiasis: Status: Acute (2) Acute cholecystitis: Status: Acute Plan 88/F with RUQ pain d/t cholecystitis ? early cholangitis, +HIDA, -s/p cholecystoctomy tube 06/04 by IR, gram stain GNR and grampositive cocci -he's feeling much better -LFT are trending down including bili, nl wbc -Poor candiate for surgery d/t numerous comorbidities -advance diet -continue IV antibiotics ( Ceftriaxone and Metronidazole a, vanco) HTN -Lisinopril and cardizem HLD -hold lipitor d/t elevated LFTs Overreactive bladder. Continue Myrbetriq. Hx of head bleed 10 years ago. On Keppra for seizure prophylaxis. Dementia--no formal diagnosis, no behavior issues Asthma. Only uses albuterol inhaler as needed. DVT prophylaxis: heparin, compression device Code status: Full need for inpatient: iv abx for cholecystitis, need for cholecystoctomy Quality Stroke Does the patient have a stroke diagnosis?: No VTE Prior VTE?: No VTE Risk Level:: Medical - moderate - high VTE Device Contraindication: Treatment Not Indicated VTE Drug Contraindication: Treatment Not Indicated
[2024-06-05 12:04] LABS: Alanine Aminotransferase 93 U/L (0-31); Albumin Level 2.8 g/dL (3.5-5.0); Alkaline Phosphatase 118 U/L (39-117); Aspartate Amino Transferase 52 U/L (5-31); Bilirubin Direct 0.5 mg/dL (0.0-0.5); Bilirubin Total 0.9 mg/dL (0.0-1.0)
[2024-06-05] MEDS: cefTRIAXone sodium 1 GM in 0.9 % Sodium Chloride 50 ML IV (17:33)
[2024-06-05 18:37] LABS: Vancomycin Random 12.3 mcg/mL (15-20)
--- NOTE | 2024-06-05 18:47 | HE.PHANOTE ---
Re Daniel: Renal function slightly declined. Trough returned at 12.3. Changed dose to 1500mg q24h. This choice has a lower toxity, and higher probability to treat compared to current dosing, and taking patient's age into account for frequency of dosing. Predicted AUC is 483, and predicted trough is 14.1, with 85% probability to treat. Next trough is 06/06 @ 1800.
[2024-06-05] MEDS: vancomycin HCL 1,500 MG in 0.9 % Sodium Chloride 500 ML 333.33 MG IV (20:10)
--- NOTE | 2024-06-05 20:37 | PC.NURSE ---
This RN assumed care at 1900, on initial assessment, Voe hotel clerk utilized, family at bedside. Pt denies pain at this time. Lung sounds clear, & non-labored, abdomen round and non-tender with palpation, BSx4. BROOK drain to RUQ, dressing CDI, emptied 50ml of dark brown, thick drainage. Pedal pulses palpable. Pt is AOx3 at this time, responds appropriately with hotel clerk, calm and cooperative with no apparent distress. Meds given per OCT.
--- NOTE | 2024-06-06 01:00 | PC.NURSE ---
Pts BP elevated at 174/70, Dr. Liu made aware, no new orders at this time. Pt is laying in bed comfortable, respirations even and non-labored, no apparent distress noted. Pt refused PO antibiotic, educated on the risk factors of not taking antibiotics, program director/air personality utilized.
[2024-06-06 03:38] VITALS: BP 150/58; PULSE 85; RESP 16; TEMP 36.1; O2SAT 94
[2024-06-06 06:06] LABS: Creatinine Clr Calc Pharmacy 58.2; Estimated Glomerular Filt Rate > 60
[2024-06-06 07:03] VITALS: BP 150/80; PULSE 84; RESP 18; TEMP 37.2; O2SAT 93
[2024-06-06 08:25] LABS: Alanine Aminotransferase 64 U/L (0-31); Albumin Level 2.7 g/dL (3.5-5.0); Alkaline Phosphatase 98 U/L (39-117); Anion Gap 10 (12-20); Aspartate Amino Transferase 38 U/L (5-31); Bilirubin Direct 0.4 mg/dL (0.0-0.5); Bilirubin Total 0.7 mg/dL (0.0-1.0); Blood Urea Nitrogen 11 mg/dL (9-16); Carbon Dioxide 27 mmol/L (22-29); Chloride 107 mmol/L (96-108); Glucose Random 79 mg/dL (60-115); Potassium 3.2 mmol/L (3.3-5.1); Sodium 141 mmol/L (135-145)
--- NOTE | 2024-06-06 09:00 | P.PNGS_ITS ---
Subjective Subjective Date of Service: 06/06/24 Interval history: Patient has no abdominal complaints. Gallbladder drain with bilious output. Physical Exam 2 Vital Signs: Vital Signs: Last Vital Signs Temp 98.9 F 06/06/24 07:03 Pulse 84 06/06/24 07:03 Resp 18 06/06/24 07:03 BP 150/80 H 06/06/24 07:03 Pulse Ox 93 06/06/24 07:03 O2 Del Method Room Air 06/06/24 07:03 O2 Flow Rate 2 06/03/24 19:03 BMI result Body Mass Index 36.3 GI: Other: Drained dressing clean dry and intact. Abdomen is soft, corpulent, benign Objective Data Active Medications Albuterol Sulfate (Albuterol Sulfate 90 Mcg 8 Gm Inhaler) 2 puff INHALE RQ4H PRN PRN Reason: sob Albuterol Sulfate (Albuterol Sulfate 90 Mcg 8 Gm Inhaler) 2 puff INHALE Q6H PRN PRN Reason: Shortness Of Breath Or Wheezing Artificial Tears (Artificial Tears 15 Ml Drops) 1 drop EYE-BOTH BID [facility] Last Admin: 06/05/24 22:36 Dose: Not Given Documented By: KENIA Non-Admin Reason: Patient Refused Calcium Carbonate/Cholecalciferol (Calcium + Vitamin D 250 Mg Tablet) 250 mg PO DAILY [facility] Last Admin: 06/05/24 08:28 Dose: 250 mg Documented By: EUGENE Diltiazem HCl (Diltiazem Hcl 30 Mg Tablet) 30 mg PO QID [facility]; Protocol Last Admin: 06/05/24 19:56 Dose: 30 mg Documented By: KENIA Ergocalciferol (Ergocalciferol (Vitamin D2) 1,250 Mcg Capsule) 1,250 mcg PO [facility] Hydromorphone HCl (Hydromorphone Hcl 0.5 Mg/0.5 Ml Syringe) 0.5 mg IVPUSH Q6H PRN; Protocol PRN Reason: Pain, Severe (Pain Scale 7-10) Last Admin: 06/05/24 00:08 Dose: 0.5 mg Documented By: AYALA Ceftriaxone Sodium 1 gm/ (Sodium Chloride) 50 mls @ 100 mls/hr IV Q24H [facility] Last Infusion: 06/05/24 18:03 Dose: Infused Documented By: EUGENE Vancomycin HCl 1,500 mg/ (Sodium Chloride) 500 mls @ 333.333 mls/hr IV Q24H [facility] Last Infusion: 06/05/24 21:44 Dose: Infused Documented By: KENIA Levetiracetam (Levetiracetam 500 Mg Tablet) 500 mg PO BID [facility] Last Admin: 06/05/24 20:04 Dose: 500 mg Documented By: KENIA Lisinopril (Lisinopril 20 Mg Tablet) 20 mg PO DAILY [facility]; Protocol Last Admin: 06/05/24 08:28 Dose: 20 mg Documented By: EUGENE Melatonin (Melatonin 3 Mg Tablet) 6 mg PO BEDTIME PRN PRN Reason: Insomnia Metronidazole (Metronidazole 500 Mg Tablet) 500 mg PO Q8H [facility] Last Admin: 06/06/24 01:51 Dose: Not Given Documented By: KENIA Non-Admin Reason: Patient Refused Mirabegron (Mirabegron 25 Mg Tab.Er.24h) 25 mg PO DAILY [facility] Last Admin: 06/05/24 08:28 Dose: 25 mg Documented By: EUGENE Naloxone HCl (Naloxone Hcl 0.4 Mg/Ml Vial) 0.04 mg IVPUSH Q5M PRN PRN Reason: Excessive sedation or RR < 8 Ondansetron HCl (Ondansetron Hcl 4 Mg/2 Ml Vial) 4 mg IVPUSH Q4H PRN PRN Reason: Nausea and Vomiting Pharmacy Consult (Consult Rx Vancomycin Dosing) 1 each MISCELLANE DAILY PRN PRN Reason: Consult order Sodium Chloride (0.9 % Sodium Chloride Flush 3 Ml Syringe) 3 ml IVFLUSH QSHIFT [facility] Last Admin: 06/05/24 20:10 Dose: 3 ml Documented By: KENIA Labs 06/04/24 05:49 06/06/24 05:12 Labs: Laboratory Results - last 24 hr 06/05/24 06/05/24 06/06/24 05:45 17:59 05:12 Anion Gap 10 L Estim Creat Clear Calc 58.2 Estimated GFR > 60 Random Glucose 79 Calcium 8.0 L D Total Bilirubin 0.9 0.7 Direct Bilirubin 0.5 0.4 AST 52 H 38 H ALT 93 H 64 H Alkaline Phosphatase 118 H 98 Total Protein 6.0 L 6.0 L Albumin 2.8 L 2.7 L Random Vancomycin 12.3 L Microbiology Microbiology Results: Microbiology 06/04/24 14:00 Gram Stain - Final Bile Routine Culture - Preliminary Anaerobic Culture - Preliminary Culture in progress. Procedures Date of Service Date of Service: 06/06/24 Progress Note: A&P Assessment and plan (1) Acute cholecystitis: Status: Acute Plan At present, no acute surgical issues. Advance diet as tolerated, out of bed, discharge per hospitalist. Time Spent With Patient Time: Total time managing care of this patient today ____ minutes. Quality Stroke Does the patient have a stroke diagnosis?: No VTE Prior VTE?: No VTE Risk Level:: Medical - moderate - high VTE Device Contraindication: Treatment Not Indicated VTE Drug Contraindication: Treatment Not Indicated
[2024-06-06] MEDS: Mirabegron 25 MG TAB.ER.24H PO (09:06)
[2024-06-06 09:07] VITALS: BP 150/80; PULSE 84
[2024-06-06] MEDS: dilTIAZem HCL 30 MG TABLET PO ×3 (09:07→16:23)
[2024-06-06] MEDS: Calcium + Vitamin D 250 MG TABLET PO (09:07)
[2024-06-06] MEDS: lisinopriL 20 MG TABLET PO (09:08)
[2024-06-06] MEDS: levETIRAcetam 500 MG TABLET PO (09:08)
[2024-06-06] MEDS: 0.9 % Sodium Chloride Flush 3 ML SYRINGE IVFLUSH ×2 (09:13→16:26)
[2024-06-06] MEDS: metroNIDAZOLE 500 MG TABLET PO ×2 (09:44→16:25)
--- NOTE | 2024-06-06 10:09 | PM.DS ---
DS: Providers Provider Date of Service: 06/06/24 Date of admission: 06/02/24 05:16 Primary care physician: Roslyn Rodriguez MD Consults: 06/02/24 03:55 Consult to General Surgery Routine Consulting Provider: [facility] Reason for consultation: Biliary colic with vomiting, persistent right upper quadrant pain, gallston Has provider been notified: Yes 06/02/24 05:18 Consult to General Surgery Routine Consulting Provider: [facility] Reason for consultation: Acute cholithiasis Has provider been notified: Yes DS: Diagnosis Discharge Diagnosis (1) Acute cholecystitis: Status: Acute DS: Summary Hospital Course Hospital Course: Chief Complaint: Abdominal pain Diana Scott is 88 years old woman with past medical history significant for hyperlipidemia, hypertension, asthma and seizures was brought to the emergency department via EMS due to severe upper abdominal pain that started last night associated with nausea and vomiting. Pain started after eating dinner. Denies fever or chills. Denied chest pain, shortness on breath, cough, headache, palpitations or dizziness. Patient does have a right facial droop noted by the family a month ago. In the ED, she was found to have hypertension. Last blood pressure is 170/62. Other vital signs are normal. Blood workup including CBC, CMP and lipase are unremarkable. Viral testing for influenza, RSV and COVID-[address] is negative. Abdominal pelvis CT scan with IV contrast showed no acute abnormalities except for cholelithiasis without CBD dilatation. There is underlying sigmoid diverticulosis without diverticulitis and normal appendix. Abdominal ultrasound showed cholelithiasis. ECG showed normal sinus rhythm. ED tx: NS 1 L bolus, morphine 8 mg IV, (total), Zofran 4 mg IV Hospital course: Acute cholecystitis The patient presaented with RUQ pain fever, elevated WBC and elevated LFTs, CT and US showed cholelithiasis with positive lieberman's sign, HIDA scan suggested cholecysitis and there was concern for early cholangitis. She was evaluated by surgery and deemed high risk for operation and therefore IR guided cholecystoctomy tube. She since doing well, her pain has resolved, has no fever and WBC has normalized and her diet is advanced to regular diet which she's tolerating. She will transition to oral Augmentin for a total of 10 days and will need to follow up with surgery clinical impression was acute cholecystitis with possible early cholangitis HTN--resume Lisinopril and Cardizem at home HLD -hold lipitor d/t elevated LFTS -resume in a week if LFTs are normal Overreactive bladder. Continue Myrbetriq. Hx of head bleed 10 years ago. On Keppra for seizure prophylaxis. Dementia--no formal diagnosis, no behavior issues Asthma. Only uses albuterol inhaler as needed. Dispo: home with [facility] Time Attestation Discharge Coordination Time (in mins): 45 Quality: Safe Use of Opioids Does Pt have an Active Cancer Diagnosis on the Problem List?: No Quality: Stroke Does the patient have a stroke diagnosis?: No Physical Exam Vital Signs: Vital Signs: Last Vital Signs Temp 98.9 F 06/06/24 07:03 Pulse 84 06/06/24 09:07 Resp 18 06/06/24 07:03 BP 150/80 H 06/06/24 09:07 Pulse Ox 93 06/06/24 07:03 O2 Del Method Room Air 06/06/24 07:03 O2 Flow Rate 2 06/03/24 19:03 BMI result Body Mass Index 36.3 General: AO X 3, no acute distress Resp: CTA bilateral CVS: S1,S2,RRR GI: +BS, NT, no distention Skin: No rash Neuro: motor grossly intact Psych: appropriate affect DS: Data Data Completed and Pending Labs on day of discharge: Laboratory Results - last 24 hr 06/05/24 06/05/24 06/06/24 05:45 17:59 05:12 Sodium 141 Potassium 3.2 L Chloride 107 Carbon Dioxide 27 Anion Gap 10 L BUN 11 Creatinine 0.71 Estim Creat Clear Calc 58.2 Estimated GFR > 60 Random Glucose 79 Calcium 8.0 L D Total Bilirubin 0.9 0.7 Direct Bilirubin 0.5 0.4 AST 52 H 38 H ALT 93 H 64 H Alkaline Phosphatase 118 H 98 Total Protein 6.0 L 6.0 L Albumin 2.8 L 2.7 L Random Vancomycin 12.3 L Preliminary micro results at discharge 06/04/24 14:00 Routine Culture - Preliminary Bile Anaerobic Culture - Preliminary Culture in progress. Discharge Plan Discharge Anticipated Discharge Date/Time: 06/06/24 10:26 Patient Disposition: Home Health Service Discharge Diagnosis: Acute cholecystitis Referrals: [facility] [Other] - 1 Week (HOME CARE SERVICES FOR [facility]- A NURSE WILL CALL YOU TO SET UP FIRST APPOINTMENT) Roslyn Rodriguez MD [Primary Care Provider] - 1 Week Dustin Pollard MD [Physician] - 1 Week Discharge Medications: New cefuroxime axetil 500 mg Tablet 500 mg PO BID Qty: 14 0RF Continued furosemide 40 mg tablet 1 tab PO BID@0700,1400 lisinopril 40 mg tablet 40 mg PO DAILY Artificial Tears(ab-bfhb-iqbn) 1-0.2-0.2 % drops 1 drp ophthalmic (eye) BID mirabegron [Myrbetriq] 25 mg tablet extended release 24 hr 25 mg PO DAILY diltiazem HCl 360 mg capsule,extended release 24hr 360 mg PO DAILY levetiracetam 500 mg tablet 500 mg PO BID ergocalciferol (vitamin D2) 1,250 mcg (50,000 unit) capsule 1,250 mcg PO FR risedronate 35 mg tablet 35 mg PO FR albuterol sulfate [Ventolin HFA] 90 mcg/actuation HFA aerosol inhaler 2 inh inhalation Q6H PRN (Reason: Shortness Of Breath Or Wheezing) calcium carbonate-vitamin D3 500 mg(1,250mg) -200 unit tablet 1 tab PO DAILY Held atorvastatin 20 mg tablet 20 mg PO DAILY Hold Instructions: Resume on 06/13/24. Discharge Orders: Discharge Order (Routine); Ordered 06/06/24 Ordered By: Orlin Burton Diet: Advance to usual diet Activity on Discharge: As tolerated Stand Alone Forms: Patient Portal Discharge page Print Language: Slovak Care Plan Goals: recovery from gallstone and galbladder infection Health Concerns: cholecystitis Plan of Treatment: Take Ceftin (Cefuroxime) as directed and follow up with your Doctor in a wee Lab work in one week follow up with Dr. Pollard in the office in a week empty biliary drain 2-3 times/per day or whenever full Assessment: see above Discharge Date/Time: 06/06/24 19:42
--- NOTE | 2024-06-06 10:41 | MHC.CM.PN ---
EMR REVIEWED AND PER MD ROUNDS, PT MAY DC LATER TODAY WITH BILIARY DRAIN. [facility] UPDATED ON POSSIBLE DC., CM WILL FOLLOW FOR PLAN.
[2024-06-06] MEDS: cefuroxime axetiL 500 MG TABLET PO (11:30)
[2024-06-06 12:00] VITALS: BP 147/79; PULSE 80; RESP 16; TEMP 37.2; O2SAT 98
--- NOTE | 2024-06-06 12:53 | P.F2F_ITS ---
Service Date Service Date: 06/06/24 Encounter Date of encounter: 06/06/24 Reasons for Services Signs and symptoms assessed: cholecystitis Reason for assisted: postoperative assessment and/or care and teach disease management Homebound: Leaving the home is medically contraindicated at this time without the asist of a device and/or another person due th the listed conditions above and below. Reason homebound: weakness related to hospital stay Homebound supporting statement: homebound due to weakness from hospitalization, cholecystitis with drain in place, doesn't drive and needs the assistance of another person Certification: Based on the above findings, I certify that this patient is confined to the home and needs intermittent assisted care, physical therapy and/or speech therapy, or continues to need occupational therapy. The patient is under my care, and I have initiated the establishment of the plan of care. The patient will be followed by a physician who will periodically review the plan of care. Time Spent With Patient Time: Total time managing care of this patient today ____ minutes.
[2024-06-06] MEDS: Ergocalciferol (Vitamin D2) 1,250 MCG CAPSULE 1250 MCG PO (14:00)
--- NOTE | 2024-06-06 14:16 | MHC.CM.PN ---
DP: PT HAS BEEN MEDICALLY CLEARED FOR DC HOME WITH NEW [facility] FOR GROUP HOME VISITS. [facility] UPDATED ON TODAY'S DC. BLS TRANSPORT BOOKED FOR 7 PM VIA [facility]. [facility] OBTAINED AND BOOKING ID # [id number]. SON UPDATED ON DC. RN AWARE.
[2024-06-06 15:19] VITALS: BP 182/80; PULSE 78; RESP 16; TEMP 36.8; O2SAT 95
[2024-06-06 15:23] VITALS: BP 123/60
== END 2024-06-06 19:42 | disposition home health service (06) | DRG 445 ==
LOC: HO.ED 06-02 03:54 → HO.EDOVER 06-02 05:21 → HO.S3 06-02 12:20
PROVIDERS: Internal Medicine; Radiology Vascular & Interventional Radiology; Student in an Organized Health Care Education/Training Program; Admitting Provider Internal Medicine; Emergency Provider Emergency Medicine Emergency Medical Services; PCP Internal Medicine; Visit Provider Internal Medicine
PROC: 0F9430Z Drainage of Gallbladder with Drainage Device, Percutaneous Approach (ICD-10-PCS; principal; 2024-06-04 12:30)
DX: K81.0 Acute cholecystitis (principal); K83.09 Other cholangitis; E78.5 Hyperlipidemia, unspecified; N32.81 Overactive bladder; I10 Essential (primary) hypertension; J45.909 Unspecified asthma, uncomplicated; Z20.822 Contact with and (suspected) exposure to COVID-19; Z79.899 Other long term (current) drug therapy
CPT/HCPCS: 0241U; 36415; 47533; 70450; 74177; 76705; 78226; 80048; 80053; 80076; 80202; 82565; 82947; 83690; 83735; 83880; 84484; 85025; 85027; 87070; 87073; 87205; 93005; 99285; A9537; C1729; C1769; C1887; C1892; C1894; J0696; J1171; J1836; J1953; J2003; J2270; J2405; J2704; J3010; J3370; J3371; J7120; Q9967

== ENCOUNTER 2024-06-02 05:16 | Outpatient (BNV) | payer MEDICARE, SELFPAY | END 2024-06-04 14:39 | PROVIDERS: Admitting Provider Internal Medicine; Emergency Provider Emergency Medicine Emergency Medical Services; PCP Internal Medicine; Visit Provider Physician Assistant Surgical | DX: K81.0 Acute cholecystitis (principal) | CPT/HCPCS: 47490 ==

== ENCOUNTER → 2024-06-02 05:16 | Outpatient (BNV) | payer MEDICARE, SELFPAY | PROVIDERS: Admitting Provider Internal Medicine; Emergency Provider Emergency Medicine Emergency Medical Services; PCP Internal Medicine; Visit Provider Internal Medicine | DX: K80.40 Calculus of bile duct with cholecystitis, unspecified, without obstruction (principal) | CPT/HCPCS: 99223; 99232; 99239; G0180 ==

== ENCOUNTER → 2024-06-02 05:16 | Outpatient (BNV) | payer MEDICARE, SELFPAY | PROVIDERS: Admitting Provider Internal Medicine; Emergency Provider Emergency Medicine Emergency Medical Services; PCP Internal Medicine; Visit Provider Surgery | DX: K81.0 Acute cholecystitis (principal) | CPT/HCPCS: 99222; 99231; 99232 ==

== ENCOUNTER 2024-07-22 15:11 | Outpatient (AMB) | payer MEDICARE, SELFPAY ==
--- NOTE | 2024-07-22 15:18 | MHC.OFFVIS ---
Vital Signs 07/22/24 15:21 Height 5 ft 2 in Weight 198 lb 6.656 oz BMI 36.3 Pulse 72 Intake Visit Reasons: s/p cesario wd check Intake Note: Patient is seen in office for wound check, following cholecystomy. Pt c/o: here to have her drain checked, last emptied this morning, denies any concerns, unable to verify meds with pt Product Marketing Specialist Required: Yes Product Marketing Specialist Language: Domestic Housekeeper Services: Product Marketing Specialist Present Accompanied by: Son Allergies Fish Containing Products Allergy (Mild, Verified 07/22/24 15:22) RASH Penicillins Allergy (Mild, Verified 07/22/24 15:22) RASH seafood Allergy (Mild, Uncoded 07/22/24 15:22) Rash Medication List - Last Reconciled 07/22/24 by Rajiv Ayala MD albuterol sulfate 90 mcg/actuation (Ventolin HFA) 2 inhalations inhalation Q6H PRN atorvastatin 20 mg PO DAILY calcium carbonate-vitamin D3 500 mg-5 mcg (200 unit) 1 tab PO DAILY cefuroxime axetil 500 mg PO BID diltiazem HCl CD 360 mg PO DAILY ergocalciferol (vitamin D2) 1,250 mcg PO FR furosemide 1 tab PO BID@0700,1400 levetiracetam 500 mg PO BID lisinopril 40 mg PO DAILY mirabegron ER (Myrbetriq) 25 mg PO DAILY peg [id number]-pizqzyfw 1-0.2-0.2 % (Artificial Tears ([id number])) 1 drp ophthalmic (eye) BID risedronate 35 mg PO FR HPI Comments Details: 81-year-old female patient with a history of acute cholecystitis underwent IR placement of a cholecystostomy tube on 06/04/2024. She returns today for follow-up examination. She denies abdominal pain, nausea or vomiting. She has been eating well and her bowels are functioning normally. She continues to drain clear bilious fluid from the cholecystostomy tube. Tube was drained this morning and currently the patient has a proximally 40 mL in the bulb. 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 Mother No problems noted. Social History Household Members: Unknown / Unable to assess Household Members Other:: Daughter [phone] Neema, Son [phone], Bill Housing: Unknown / Unable to assess Alcohol intake: never Patient Tobacco Use Status: Never used Tobacco Second Hand Smoke Exposure: No service: No Review of Systems Const Unobtainable due to mental condition Neuro Reports confusion Psych Reports confusion Physical Exam Const General: no acute distress and confusion Nutritional Appearance: well nourished Orientation/consciousness: confusion Limitations: wheelchair Eyes Corneas: corneas normal (No scleral icterus) GI Other: IR drain in place, clear bilious fluid evacuated. Abdomen is soft and nondistended, nontender to palpation. Skin Other: Warm, dry, normal color Neuro General: confusion Assessment & Plan Assessment & Plan (1) Acute cholecystitis: Code(s): K81.0 - Acute cholecystitis Category: Medical (2) H/O insertion of cholecystostomy tube: Code(s): Z98.890 - Other specified postprocedural states Category: Surgical Plan 81-year-old female patient status post cholecystostomy tube for acute cholecystitis. Patient appears to be having high output from the tube but the output is clear. We will have patient follow up with Dr. Pollard in 1 month for consideration of removing the tube. Coding Level of Care Code Est Pt Level 3 (57972) Diagnoses Acute cholecystitis K81.0 H/O insertion of cholecystostomy tube Z98.890
[2024-07-22 15:21] VITALS: PULSE 72; BMI 36.3
== END 2024-07-22 15:21 | disposition home or self-care (01) ==
LOC: HO.HGS 15:12
PROVIDERS: PCP Internal Medicine; Visit Provider Surgery
DX: K81.0 Acute cholecystitis (principal); Z98.890 Other specified postprocedural states
CPT/HCPCS: 99213

== ENCOUNTER → 2024-07-22 15:11 | Outpatient (BNVA) | payer MEDICARE, SELFPAY | PROVIDERS: PCP Internal Medicine; Visit Provider Surgery | DX: Z48.815 Encounter for surgical aftercare following surgery on the digestive system (principal); Z90.49 Acquired absence of other specified parts of digestive tract; Z96.89 Presence of other specified functional implants | CPT/HCPCS: 99212 ==

== ENCOUNTER 2024-08-11 19:46 | Emergency (ER) | payer MEDICARE, SELFPAY ==
[2024-08-11 19:50] VITALS: BP 102/58; BP 146/56; PULSE 79; PULSE 80; RESP 20; TEMP 36.9; O2SAT 98; BMI 31.8
--- OUTSIDE RECORDS SUMMARY | 2024-08-11 20:23 | XMS_ITS | Data Portability ---
Author Organization [employer] [employer] Address [address] [place] [id number] Care Team Providers Care Product Info Specialist Name Role Phone HIM CCA OTHER Assessment No assessment recorded. Plan of Treatment Reminders Order Date Submit Date Provider Last Modified By Organization Details Last Modified Time Details Appointments Urgent Care 2023 06:49P Carolyn Lacy MD Not available Not available Not available Lab None recorded . Referral None recorded . Procedures None recorded . Surgeries None recorded . Imaging None recorded . Medication Orders Bactrim DS 800 mg-160 mg tablet 2023 024 [id number], [address], [place], [phone], 04/17/2024 15:11:17 Bactrim DS 800 mg-160 mg tablet 2023 024 [email or web address] #[id number], [address], [place], [phone], 04/17/2024 15:11:10 Patient TargetsNo targets recorded. Patient InstructionsNo instructions recorded. Reason for Referral None Reported. Medical Equipment None Reported. Allergies Allergen ID Allergen Name Allergen Category Reaction Reaction Severity Criticality Documentation Date Start Date Code Code System Note Provider Name and Address Organization Details Recorded Time 36895 nitrofura ntoin medicatio n Not available Not available Not available 08/11/2024 7454 RxNorm Not Available [facility] - production 16:18:46 Medications Name Sig Start Date Stop Date Status Note LastModified by Organization Details LastModified Time furosemide 40 mg tablet TAKE 1 TABLET BY MOUTH TWICE DAILY AT 7 AM AND AT 2 PM active Not Available Not Available No t Available atorvastatin 20 mg tablet active Not Available Not Available Not Available levetiraceta m 500 mg tablet TAKE 1 TABLET BY MOUTH TWICE DAILY active Not Available Not Available No t Available ketotifen 0.025 % (0.035 %) eye drops ADMINISTER 1 DROP INTO LEFT EYE TWICE DAILY active Not Available Not Available Not Available diltiazem ER 360 mg capsule,24 hr,extended release TAKE 1 CAPSULE BY MOUTH EVERY DAY active Not Available Not Available No t Available sulfamethoxa zole 800 mg-trimethop rim 160 mg tablet TAKE 1 TABLET BY MOUTH EVERY 12 HOURS FOR 7 DAYS active Not Available Not Available N ot Available ergocalcifer ol (vitamin D2) 1,250 mcg (50,000 unit) capsule TAKE 1 CAPSULE BY MOUTH EVERY WEEK active Not Available Not Available No t Available lisinopril 40 mg tablet active Not Available Not Available Not Available clotrimazole 1 % topical cream APPLY TOPICALLY TWICE DAILY EVERY DAY TO THE AFFECTED AND SURROUNDING AREAS OF SKIN FOR FUNGUS active Not Available Not Available No t Available Ventolin HFA 90 mcg/actuatio n aerosol inhaler INHALE 2 PUFFS BY MOUTH EVERY 6 HOURS NEEDED FOR WHEEZING active Not Available Not Available No t Available risedronate 35 mg tablet TAKE 1 TABLET BY MOUTH EVERY WEEK IN THE MORNING 30 MINUTES BEFORE FIRST FOOD OR BEVERAGE OR MEDICATION OF THE DAY active Not Available Not Available N ot Available Myrbetriq 25 mg tablet,exten ded release TAKE 1 TABLET BY MOUTH EVERY DAY active Not Available Not Available No t Available Vitals Date Recorded Oxygen saturation Oxygen saturation in Arterial blood by Pulse oximetry Body height Heart rate Respiratory rate Body weight Body temperature Systolic blood pressure Diastolic blood pressure Provider Name and Address Organization Details Last Updated DateTime 4 99 % 99 % 152.4 cm 55 /min 16 /min 32597.2 8 g 97.2 [degF] 159 mm[Hg] 62 mm[Hg] Not Available [employer] 4 14:57:11 Date Recorded Respiratory rate Heart rate Oxygen saturation Oxygen saturation in Arterial blood by Pulse oximetry Body temperature Systolic blood pressure Diastolic blood pressure Provider Name and Address Organization Details Last Updated DateTime 4 16 /min 52 /min 99 % 99 % 98 [degF] 109 mm[Hg] 66 mm[Hg] Not Available [employer] 4 19:02:21 Social History None recorded. Functional Status None recorded. Mental Status None recorded. Family History Nothing Reported. Medical History No medical history recorded. Gynecological HistoryNo gynecological history recorded. Obstetrics History GPAL:G 0 P 0 0 0 0 Past Encounters Encounter ID Performer Location Encounter Start Date Encounter Closed Date Diagnosis/Indication Diagnosis SNOMED-CT Code Diagnosis ICD10 Code [id number] Jam Kaplan MD [facility] - [facility] [address] [place] [address] 04/17/2024 14:46:09 04/17/2024 22:39:44 Cellulitis of lower limb 157140333 L03.119 Health Concerns Section Related Observation LastModified by Organization Detai ls LastModified Time None Recorded Concern Status LastModified by Organization Details LastModified Time None Recorded Advance Directives Directive None Recorded Payers Encounter Date Sequence Insurance Name Policy Number Policy Cedillo Covered Member ID Cedillo Member ID Guarantor Name 04/17/2024 1 [facility] - DOS ON OR AFTER 2022 - DUAL ELIGIBLE - [employer] AND ONE [employer] (MEDICARE REPLACEMENT/ADV ANTAGE - HMO) Diana Scott [id number] Diana Scott Notes Date Note Type Note Provider Name and Address Organization Details Recorded Time 04/17/2024 text/html HPI: Call returned to Diana Scott to triage below. Spoke with daughter Neema. Per daughter pt having bilateral lower leg pain from the knee down that started after going in to [facility] [place] on 04[place]. Having swelling and mild redness. Right more swollen than left. No CP or SOB. No swelling of hands or face. Pt taking all meds as prescribed including Furosemide. Swelling does not improve with elevation. Daughter declines WIC or ER. [facility] Submitted to [employer] portal. Reviewed home care advise, ER precautions and reasons to call back. .................. .................. .................. .................. .................. .................. .................. ............... [facility] Nurse Triage Notes (Moshe Biswas): Chief Complaints: Edema PMH: Hypertension Other Allergies: Nitrofurantoin, seafood Comments: Reviewed HPI .................. .................. .................. .................. .................. .................. .................. ............... Medical Physicist Note From Uvaldo Rabago: Dispatched for the 88 year old female cc bilateral leg pain/swelling. Patient found sitting on couch in living room with family member on scene. Namibian speaking only. hourly sign language interpreter called during patient visit. Patient complains of bilateral lower leg pain for 1 week. Patient reports unable to walk the past two days. Patient reports previous history of cellulitis. Patient denies chest pain, denies shortness, denies abdominal pain, denies n/v/d, denies recent fevers complains of 8/10 bilateral leg pain. Pictures taken of bilateral legs and placed on [facility] chart for physician. Patient has bilateral darken old scaly, leather like skin on lower legs with redness outside of the scaly skin. Bilateral edema, and warm to the touch. Small amount of old green crust on front right lower leg. Patient vitals obtained on scene. Patient repots allergies of PCN and seafood. Consulted with [facility] [place]. Kaplan with patient's complaints, symptoms and physical findings. Physician ordered one dose of Bactrim PO. Medication administered. Patient educated to take Tylenol/Ibuprofen for pain management. Patient advised Bactrim prescription at preferred pharmacy. Patient educated on antibiotic instructions. Patient advised of infection risk factors. .................. .................. .................. .................. .................. .................. .................. ............... Disposition: Fulfilled Jam Kaplan MD [address] [place] [address],[facility], [place], [address], [employer] [facility] [employer] 04/17/2024 17:08:33 OBGyn Episode No OBEpisode recorded.
--- NOTE | 2024-08-11 20:31 | ED_ITS ---
HPI - General Adult General Chief complaint: General Medical Stated complaint: DISCOLORATION AROUND SURG WOUND - EMS Time Seen by Provider: 08/11/24 20:28 Source: patient and family Mode of arrival: EMS History of Present Illness ED Provider: HPI narrative: Patient is status post cholecystostomy tube placed about 4 weeks ago family brought the patient as the noticed erythematous rash under the breast and tube which is still draining no abdominal pain no nausea no vomiting patient otherwise feel better Related Data Home Medications ?Medication ?Instructions ?Recorded ?Confirmed furosemide 40 mg tablet 1 tab PO BID@0700,1400 06/26/20 07/22/24 lisinopril 40 mg tablet 40 mg PO DAILY 06/26/20 07/22/24 mirabegron 25 mg tablet,extended 25 mg PO DAILY 06/26/20 07/22/24 release 24 hr (Myrbetriq) peg [id number]-[id number] 1 1 drp ophthalmic (eye) BID dry eyes 06/26/20 07/22/24 %-0.2 %-0.2 % eye drops (Artificial Tears ([id number])) atorvastatin 20 mg tablet 20 mg PO DAILY 01/12/21 07/22/24 calcium 500 mg (as 1 tab PO DAILY 01/12/21 07/22/24 carbonate)-vitamin D3 5 mcg (200 unit) tablet diltiazem HCl 360 mg 360 mg PO DAILY 01/12/21 07/22/24 capsule,extended release 24 hr albuterol sulfate 90 mcg/actuation 2 inh inhalation Q6H PRN Shortness 06/02/24 07/22/24 aerosol inhaler (Ventolin HFA) Of Breath Or Wheezing ergocalciferol (vitamin D2) 1,250 1,250 mcg PO FR 06/02/24 07/22/24 mcg (50,000 unit) capsule levetiracetam 500 mg tablet 500 mg PO BID 06/02/24 07/22/24 risedronate 35 mg tablet 35 mg PO FR 06/02/24 07/22/24 Previous Rx's ?Medication ?Instructions ?Recorded cefuroxime axetil 500 mg tablet 500 mg PO BID #14 tabs 06/06/24 nystatin 100,000 unit/gram topical 1 appl topical BID #60 grams 08/11/24 powder Allergies Allergy/AdvReac Type Severity Reaction Status Date / Time Fish Containing Products Allergy Mild RASH Verified 08/11/24 19:56 Penicillins Allergy Mild RASH Verified 08/11/24 19:56 seafood Allergy Mild Rash Uncoded 08/11/24 19:56 Review of Systems Review of Systems: Yes all other systems are reviewed and are negative [facility] Past Medical History Medical History Cholelithiasis (06/02/24) 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 Mother No problems noted. Social History Social History Household Members: Unknown / Unable to assess Household Members Other:: Daughter [phone] Neema, Son [phone], Bill Housing: Unknown / Unable to assess Alcohol intake: never Patient Tobacco Use Status: Never used Tobacco Smoked in Last 30 Days: No Second Hand Smoke Exposure: No Use of substances other than those prescribed or required for medical reasons: No Advance Directives: No Advance Directives Information Provided: Yes service: No Physical Exam ED Vital Signs: Vital Signs - 24 hr 08/11/24 19:50 08/11/24 21:53 08/11/24 22:01 Temperature 98.4 F 98 F 98 F Pulse Rate 79 71 71 Respiratory Rate 20 16 16 Blood Pressure 146/56 H 122/49 L 122/49 L Pulse Oximetry 98 99 99 Oxygen Delivery Method Room Air Room Air Room Air BMI result Body Mass Index 31.8 Appearance: Alert. Oriented X2-3. No acute distress. Eyes: No pallor or icterus ENT: Pharynx normal. Oral Mucosa moist Neck: Normal inspection. Neck supple. CVS: Normal heart rate and rhythm. Pulses normal. Respiratory: No respiratory distress. Equal air entry bilateral, no wheezing/rales/rhonchi Abdomen: Soft and nontender. Bowel sounds are present, no mass palpable, no CVA tenderness cesario cystostomy tube in place intertrigo rash under the breast Skin: Skin warm and dry. Normal skin color. Normal skin turgor. Extremities: No lower extremity edema. No calf tenderness Neuro: Oriented X 2-3. No motor deficit. Medications Administered Discontinued Medications Generic Name Dose Route Start Last Admin Trade Name Freq PRN Reason Stop Dose Admin Nystatin 1 appl 08/11/24 20:48 08/11/24 22:00 Nystatin Powder 15 Gm Bottle TOPICAL 08/11/24 20:49 1 appl ONCE ONE Administration Protocol Medical Decision Making Medical Decision Making [facility] Narrative: Patient has intertrigo rash will prescribe any statin powder also has cholecystostomy tube in place which was cleaned and new dressing was placed it is draining normal Differential Diagnosis Differential Diagnoses: The differential diagnosis associated with the presentation includes Discharge Plan Discharge Clinical Impression: Candidal intertrigo Patient Disposition: Home, Self-Care Instructions: Skin Yeast Infection (ED) Additional Instructions: Local care of your cholecystostomy tube as per advised Apply nystatin powder twice a day of the rash area Follow up with your PCP/surgeon Prescriptions: New nystatin 100,000 unit/gram powder 1 appl topical BID Qty: 60 0RF No Action furosemide 40 mg tablet 1 tab PO BID@0700,1400 lisinopril 40 mg tablet 40 mg PO DAILY Artificial Tears([id number]-dffb) 1-0.2-0.2 % drops 1 drp ophthalmic (eye) BID mirabegron [Myrbetriq] 25 mg tablet extended release 24 hr 25 mg PO DAILY diltiazem HCl 360 mg capsule,extended release 24hr 360 mg PO DAILY atorvastatin 20 mg tablet 20 mg PO DAILY levetiracetam 500 mg tablet 500 mg PO BID ergocalciferol (vitamin D2) 1,250 mcg (50,000 unit) capsule 1,250 mcg PO FR risedronate 35 mg tablet 35 mg PO FR albuterol sulfate [Ventolin HFA] 90 mcg/actuation HFA aerosol inhaler 2 inh inhalation Q6H PRN (Reason: Shortness Of Breath Or Wheezing) cefuroxime axetil 500 mg Tablet 500 mg PO BID Qty: 14 0RF calcium carbonate-vitamin D3 500 mg(1,250mg) -200 unit tablet 1 tab PO DAILY Interventions: ED Discharge Assessment Last Done: 08/11/24 22:01 Print Language: New Zealander
[2024-08-11 21:53] VITALS: BP 122/49; PULSE 71; RESP 16; TEMP 36.6; O2SAT 99
[2024-08-11] MEDS: Nystatin Powder 15 GM BOTTLE 1 APPL TOPICAL (22:00)
[2024-08-11 22:01] VITALS: BP 122/49; PULSE 71; RESP 16; TEMP 36.6; O2SAT 99
[2024-08-12 00:41] VITALS: BP 142/53; PULSE 75; RESP 14; TEMP 36.9; O2SAT 99
== END 2024-08-12 00:43 | disposition home or self-care (01) ==
PROVIDERS: Emergency Provider Internal Medicine
DX: L30.4 Erythema intertrigo (principal); Z79.899 Other long term (current) drug therapy
CPT/HCPCS: 99283; 99284

== ENCOUNTER 2024-08-26 13:58 | Outpatient (AMB) | payer MEDICARE, SELFPAY ==
--- OUTSIDE RECORDS SUMMARY | 2024-08-26 14:00 | XMS_ITS | Continuity of Care Document ---
Author Organization [employer] [facility], [place] in - [employer] Address [address] [place] [phone] Care Team Providers Care Machine Cementer Name Role Phone HIM CCA OTHER Assessment Encounter Date Assessment Date Assessment LastModified by Organization Details LastModified Time 08/11/2024 08/11/2024 Pt is s/p cholecystostomy tube for cholecystitis. family called due to drainage around tube site, as well as concern for redness. The redness is not very impressive, difficult to make sense of the drainage contents, color is off for what id expect from bile. if there is leakage around catheter insertion site, may require imaging to ensure that the tip of the tube is still in the GB lumen recommend ed eval [email or web address] Not available 08/11/2024 20:38:23 Plan of Treatment Reminders Order Date Submit Date Provider Last Modified By Organization Details Last Modified Time Details Appointments None record ed. Lab None record ed. Referral None record ed. Procedures None record ed. Surgeries None record ed. Imaging None record ed. Medication Orders None record ed. Patient TargetsNo targets recorded. Patient InstructionsNo instructions recorded. Reason for Referral None Reported. Medical Equipment None Reported. Allergies Allergen ID Allergen Name Allergen Category Reaction Reaction Severity Criticality Documentation Date Start Date Code Code System Note Provider Name and Address Organization Details Recorded Time 73557 nitrofura ntoin medicatio n Not available Not [...] Available No t Available Vitals Date Recorded Respiratory rate Heart rate Oxygen saturation Oxygen saturation in Arterial blood by Pulse oximetry Body temperature Systolic blood pressure Diastolic blood pressure Provider Name and Address Organization Details Last Updated DateTime 4 16 /min 52 /min 99 % 99 % 98 [degF] 109 mm[Hg] 66 mm[Hg] Not Available [facility] - production 4 19:02:21 Social History None recorded. Functional Status None recorded. Mental Status None recorded. Family History Nothing Reported. Medical History No medical history recorded. Gynecological HistoryNo gynecological history recorded. Obstetrics History GPAL:G 0 P 0 0 0 0 Past Encounters Encounter ID Performer Location Encounter Start Date Encounter Closed Date Diagnosis/Indication Diagnosis SNOMED-CT Code Diagnosis ICD10 Code [id number] Manish Lacy MD [facility] - [facility] [address] [place] [phone] 08/11/2024 19:02:11 08/11/2024 21:13:26 Post-surgical wound care [id number] Z48.01 Health Concerns Section Related Observation LastModified by Organization Desiree marsh LastModified Time None Recorded Concern Status LastModified by Organization Details LastModified Time None Recorded Payers Encounter Date Sequence Insurance Name Policy Number Policy Cedillo Covered Member ID Cedillo Member ID Guarantor Name 08/11/2024 1 [facility] - DOS ON OR AFTER 2022 - DUAL ELIGIBLE - CUSTODIAL OPTIONS AND ONE CARE (MEDICARE REPLACEMENT/ADV ANTAGE - HMO) Diana Scott [id number] Diana Scott Notes Date Note Type Note Provider Name and Address Organization Details Recorded Time 08/11/2024 text/html HPI: TC returned to isma Khan (on HIPAA) in regards to below message. Son reports the patient has a cholecystostomy tube and the area around the tube is very red . Son reports the gauze around the tube is very dirty . Son reports someone from the day program visited the patient today and advised the son to call PCP office to request an RN to go out to the home to evaluate the dressing. RN advised son [facility]. Son aware they will go out to evaluate the patient however patient may need to go to the ED depending on their assessment. Son verbalized understanding. Patient had an appointment with [facility] on 07/22/24 and per OV note: 81-year-old female patient status post cholecystostomy tube for acute cholecystitis. Patient appears to be having high output from the tube but the output is clear. We will have patient follow up with Dr. Pollard in 1 month for consideration of removing the tube. Patient is scheduled to see Dr. Pollard on 08/26/24 at 2pm to discuss removal. Son reports they did NOT call [facility] to report concerns regarding cholecystostomy tube. Son aware [facility] will be out to see the patient today. Son to f/u PRN. ..................... ..................... ..................... ..................... ..................... ..................... ............... [facility] Nurse Triage Notes (Candida Main - RN): Chief Complaints: Wound care PMH: Hypertension, Asthma, Osteoarthritis Comments: HPI reviewed Allergy to seafood ..................... ..................... ..................... ..................... ..................... ..................... ............... Rock Crushing Machine Operator Note From Aleksandar Marquez: This visit is for an 89-year-old female with a history including but not limited to HTN, asthma, OA. Patient's family requested a visit today assess patient's BROOK drain. Family states that the patient has not complained of any pain and she is not had any fevers, nausea, vomiting, diarrhea. Family states that initially the fluid in the drain was clear but approximately a week to 10 days ago it started to become black/brown. Family states they empty the drain twice a day.The patient presents awake and alert, in no acute distress. Her vital signs are reasonably stable and she is afebrile. Nonfocal neurological exam. Lungs are clear throughout auscultation. Abdomen is soft, nontender, nondistended. Pictures of the insertion site are uploaded, no erythema or drainage. No lower extremity edema.[facility] [place] and recommends the patient go back to [facility] for evaluation. Patient and family are agreeable for ambulance transport. 911 initiated and a verbal SBAR was given to Julio GARCIA. The patient and the family were given the opportunity to ask questions and are agreeable to this plan. ..................... ..................... ..................... ..................... ..................... ..................... ............... [facility] Consulted: Manish Lacy ..................... ..................... ..................... ..................... ..................... ..................... ............... Disposition: Fulfilled Manish Lacy MD [address] [facility],[address] [facility], [place], [phone], [employer] 08/11/2024 20:39:42 OBGyn Episode No OBEpisode recorded.
--- NOTE | 2024-08-26 14:24 | A.OFFVIS_ITS ---
Intake Visit Reasons: Cholecystostomy Intake Note: Patient here to follow up ER visit on 08-11-2024. Cholecystostomy tube still draining. Patient c/o: tube feels uncomfortable. Custom Tailor Apprentice Required: Yes Custom Tailor Apprentice Name: Araceli MCLEAN Accompanied by: and 2EMT personnel Allergies Fish Containing Products Allergy (Mild, Verified 08/26/24 14:25) RASH Penicillins Allergy (Mild, Verified 08/26/24 14:25) RASH seafood Allergy (Mild, Uncoded 08/26/24 14:25) Rash Medication List - Last Reconciled 08/26/24 by Dustin Pollard MD albuterol sulfate 90 mcg/actuation (Ventolin HFA) 2 inhalations inhalation Q6H PRN atorvastatin 20 mg PO DAILY calcium carbonate-vitamin D3 500 mg-5 mcg (200 unit) 1 tab PO DAILY cefuroxime axetil 500 mg PO BID diltiazem HCl CD 360 mg PO DAILY ergocalciferol (vitamin D2) 1,250 mcg PO FR furosemide 1 tab PO BID@0700,1400 levetiracetam 500 mg PO BID lisinopril 40 mg PO DAILY mirabegron ER (Myrbetriq) 25 mg PO DAILY nystatin 1 appl topical BID peg 002-sifapdexliem-nwpgztxg 1-0.2-0.2 % (Artificial Tears ([id number]-ldfhohzs)) 1 drp ophthalmic (eye) BID risedronate 35 mg PO FR HPI Comments Details: Patient presents with her significant other with in [facility] transport. She is homebound. She has had her IR gallbladder tube in for several weeks time. She would like to have removed. Patient otherwise tolerating diet. Having regular bowel habits. Bilious output from drain. 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 Mother No problems noted. Social History Household Members: Unknown / Unable to assess Household Members Other:: Daughter [phone] Neema, Son [phone], Bill Housing: Unknown / Unable to assess Alcohol intake: never Patient Tobacco Use Status: Never used Tobacco Second Hand Smoke Exposure: No service: No Physical Exam Const Other: Elderly female in stretcher GI Other: Abdomen is soft, benign. Drain intact with bilious output. Assessment & Plan Assessment & Plan (1) H/O insertion of cholecystostomy tube: Code(s): Z98.890 - Other specified postprocedural states Category: Surgical (2) Cholelithiasis: Onset Date: 06/02/24 Comment: Dipika cesario Dr. Atul Chan Code(s): K80.20 - Calculus of gallbladder without cholecystitis without obstruction Category: Surgical Plan Current plan is to arrange for IR evaluation of cholecystostomy tube. If cystic duct is patent, IR can remove the tube. Arrangements were made for this. Patient will otherwise follow-up p.r.n.. Orders: Orders IR fluoroscopy <1hr 08/26/24 Z98.890 - Other specified postprocedural states Coding Level of Care Code Est Pt Level 4 (25493) Diagnoses H/O insertion of cholecystostomy tube Z98.890 Cholelithiasis K80.20
== END 2024-08-26 14:16 | disposition home or self-care (01) ==
PROVIDERS: PCP Internal Medicine; Visit Provider Surgery
DX: Z98.890 Other specified postprocedural states (principal); K80.20 Calculus of gallbladder without cholecystitis without obstruction
CPT/HCPCS: 99214

== ENCOUNTER → 2024-08-26 13:58 | Outpatient (BNVA) | payer MEDICARE, SELFPAY | PROVIDERS: PCP Internal Medicine; Visit Provider Surgery | DX: K80.20 Calculus of gallbladder without cholecystitis without obstruction (principal); Z98.890 Other specified postprocedural states | CPT/HCPCS: 99212 ==

== ENCOUNTER 2024-09-11 11:32 | Outpatient (REF) | payer MEDICARE, SELFPAY ==
[2024-09-11 13:46] LABS: Alanine Aminotransferase 31 U/L (0-31); Albumin Level 3.5 g/dL (3.5-5.0); Alkaline Phosphatase 110 U/L (39-117); Aspartate Amino Transferase 48 U/L (5-31); Bilirubin Direct 0.2 mg/dL (0.0-0.5); Bilirubin Total 0.3 mg/dL (0.0-1.0); Total Protein 8.3 g/dL (6.5-8.0)
[2024-09-11 13:48] LABS: Vitamin D 25-OH Total 29.1 ng/mL (>30)
--- OUTSIDE RECORDS SUMMARY | 2024-09-11 14:39 | XMS_ITS | Continuity of Care Document ---
Author Organization [facility], [place] [employer] Address [address] [place] [phone] Care Team Providers Care Ticket Worker Name Role Phone HIM CCA OTHER Assessment [...] in the GB lumen recommend ed eval [id number] Not available 08/11/2024 20:38:23 Plan of Treatment [...] Name and Address Organization Details Recorded Time 72920 nitrofura ntoin medicatio n Not available Not [...] Diagnosis/Indication Diagnosis SNOMED-CT Code Diagnosis ICD10 Code Diagnosis Note [id number] Manish Lacy MD Main - [facility] [address] [place] [phone] 08/11/2024 19:02:11 08/11/2024 21:13:26 Post-surgical wound care [id number] Z48.01 Health Concerns Section Related Observation LastModified by Organization Desiree marsh LastModified Time None Recorded Concern Status LastModified by Organization Details LastModified Time None Recorded Payers Encounter Date Sequence Insurance Name Policy Number Policy Cedillo Covered Member ID Cedillo Member ID Guarantor Name 08/11/2024 1 [facility] - DOS ON OR AFTER 2022 - DUAL ELIGIBLE - PENITENTIARY OPTIONS AND ONE CARE (MEDICARE REPLACEMENT/ADV ANTAGE - HMO) Diana Scott [id number] Diana Scott Notes Date Note Type Note [...] advised son RN will place [facility]. Son aware they will go out to evaluate the patient however patient may need to go to the ED depending on their assessment. Son verbalized understanding. Patient had an appointment with [facility] on 07/22/24 and per OV note: [...] removal. Son reports they did NOT call [facility] to report concerns regarding cholecystostomy tube. Son aware [facility] will be out to see the patient today. Son to f/u PRN. ..................... ..................... ..................... ..................... ..................... ..................... ............... [facility] Nurse Triage Notes (Candida Main - RN): Chief Complaints: Wound care PMH: Hypertension, Asthma, Osteoarthritis Comments: HPI reviewed Allergy to seafood ..................... ..................... ..................... ..................... ..................... ..................... ............... Wine Blender Note From Aleksandar Marquez: This visit is [...] no erythema or drainage. No lower extremity edema.[facility] [place] and recommends the patient go back to [facility] for evaluation. Patient and family are agreeable for ambulance transport. 911 initiated and a verbal SBAR was given to Julio GARCIA. The patient and the family were given the opportunity to ask questions and are agreeable to this plan. ..................... ..................... ..................... ..................... ..................... ..................... ............... [facility] Consulted: Manish Lacy ..................... ..................... ..................... ..................... ..................... ..................... ............... Disposition: Fulfilled Manish Lacy MD [address] [facility],[address] [facility], [place], [phone], [employer] 08/11/2024 20:39:42 OBGyn Episode No OBEpisode recorded.
[2024-09-15 03:49] LABS: TS Negative Control Passed; TS Panel A 1; TS Panel B 0; TS Positive Control Passed; TSpotTB Negative (Negative)
== END 2024-09-11 11:33 | disposition home or self-care (01) ==
LOC: HO.HHCL 11:32
PROVIDERS: Visit Provider Internal Medicine
DX: K80.50 Calculus of bile duct without cholangitis or cholecystitis without obstruction (principal); E55.9 Vitamin D deficiency, unspecified
CPT/HCPCS: 36415; 80076; 82306; 86481

== ENCOUNTER 2024-10-15 10:01 | Outpatient (REF) | payer MEDICARE, SELFPAY ==
--- NOTE | ~2024-10-15 | FL_ITS ---
EXAMINATION: FLUOROSCOPIC CHOLANGIOGRAM CLINICAL INFORMATION: Status post cholecystostomy tube in May 2024. Evaluate for cystic duct patency and possible drain removal. COMPARISON: CT scan June 02, 2024 TECHNIQUE: Dilute Omnipaque 300 was injected through the cholecystostomy tube and multiple spot images and cine loops were recorded. FINDINGS: The cystic duct is patent. Contrast flows through the common bile duct into the duodenum. There are multiple filling defects in the gallbladder likely represents stones. It was discussed with the patient via an physician in private practice that her gallbladder is draining normally. The drain can be removed, however, there is a risk of recurrent cholecystitis due to the presence of gallstones. The patient requests the drain be removed. The catheter was cut and the drain was removed entirely from the gallbladder. A dry dressing and Tegaderm was applied to the catheter entry site. There were no immediate complications. FLUOROSCOPY TIME: 1 minute 30 seconds DOSE AREA PRODUCT: 1543 uGy-m2 (microgray-meter squared) FL/FL fluoroscopy <1hr IMPRESSION: 1. Patent cystic duct. There are multiple filling defects in the gallbladder that likely represent residual gallstones. The cholecystostomy tube was removed per request of the patient and the surgeon. This procedure was performed by Israel Thomas PA-C and supervised by Dr. Herrera. Electronically signed by: Tito Herrera MD 10/16/2024 04:14 PM LIS
--- OUTSIDE RECORDS SUMMARY | 2024-10-15 10:31 | XMS_ITS | Clinical Summary ---
Author Organization [employer] Address [address] [facility] [address] [place] [address] Care Team Providers Care Whiteprinting Machine Operator Name Role Phone Roslyn Rodriguez MD Primary Care Provider + Allergies Active Allergy Reactions Criticality Noted Date Comments Nitrofurantoin 10/03/2017 Other Reaction(s): rash Shellfish Allergy 11/23/2022 Medications Myrbetriq 25 MG 24 hr tablet Take 25 mg by mouth in the morning. 10/12/19 23 Active liver oil-zinc oxide (Desitin) 40 % ointment Apply topically if needed for irritation (for diaper rash). 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 180 tablet 3 11/26/19 24 Active lisinopril 40 MG tabletIndicatio ns:Primary hypertension TAKE 1 TABLET(40 MG) BY MOUTH IN THE MORNING 90 tablet 3 11/26/19 24 Active albuterol (ProAir HFA) 108 (90 Base) MCG/ACT inhalerIndicati ons:Mild intermittent asthma without complication Inhale 2 puffs every 6 (six) hours if needed for wheezing. 18 g 3 11/26/19 24 025 Active ketotifen (Zaditor) 0.025 % ophthalmic solution Administer 1 drop into the left eye 2 times daily. 5 mL 11/26/19 24 Active dilTIAZem ER (Tiazac) 300 MG 24 hr capsuleIndicati ons:Primary hypertension TAKE 1 CAPSULE BY MOUTH EVERY DAY 30 capsule 11 09/11/19 25 Active ammonium lactate (Amlactin) 12 % cream Apply topically if needed for dry skin. 385 g 3 09/11/19 25 026 Active ergocalciferol (Vitamin D2) 1.25 MG (77122 UT) capsule TAKE 1 CAPSULE BY MOUTH EVERY WEEK 12 capsule 1 09/25/19 25 Active docusate sodium (Colace) 100 MG capsule TAKE ONE CAPSULE BY MOUTH TWICE DAILY FOR 10 DAYS 60 capsule 10/09/19 25 Active ergocalciferol (Vitamin D2) 1.25 MG (37210 UT) capsule TAKE 1 CAPSULE BY MOUTH EVERY WEEK 12 capsule 1 04/07/20 24 025 Discontinued docusate sodium (Colace) 100 MG capsule Take 1 capsule (100 mg) by mouth 2 times daily for 10 days. 60 capsule 09/11/19 25 025 Discontinued Active Problems Problem Noted Date Diagnosed Date Choledocholithiasis 09/11/2024 Assessment & Plan (09/11/2024 4:23 PM EST): Sp cholecystostomy drain, bag in place , doing well FU with surgery Order LFTs today Hold atorvastatin for now. Slow transit constipation 09/11/2024 Assessment & Plan (09/11/2024 4:24 PM EST): Advised re increase water intake Use colace bid prn constipation >1d Dry skin 09/11/2024 Assessment & Plan (09/11/2024 4:25 PM EST): Use lac hydrin cream prn Vitamin D deficiency 11/29/2023 Assessment & Plan (09/11/2024 4:24 PM EST): Order Vit D She does very limited Outdoor excercise or sun exposure due to limited mobility Allergic conjunctivitis of right eye 11/26/2023 Assessment & Plan (11/26/2023 10:00 AM EDT): Start Ketotifen 0.025% ophthalmic solution. Refer to ophthalmology, r/o glaucoma. Venous stasis dermatitis of both lower extremiti es 11/23/2022 Assessment & Plan (09/11/2024 4:23 PM EST): Advised to use compression stockings, use lac hydrin + betamethasone cream on venous stasis dermatitis areas prn. Assessment & Plan (11/26/2023 9:55 AM EDT): Recommended to wear compression stockings. Use moisturizing cream to avoid ulcerations. Consult prn. Assessment & Plan (11/23/2022 3:20 PM EDT): Use betamethasone cream BID on affected area. Reconsult PRN if she has open ulcerations Recommended use of compression stockings Visit for preventive health examination 11/24/19 Assessment & Plan (11/26/2023 10:00 AM EDT): Discussed with patient re increase fresh fruit and vegetable intake. Counseled re moderate exercise as tolerated, up to 20min/d Patient feels safe at home. PAP smear: no history of abnormal Pap, she does not need pap smear any longer due to age Mammogram: up to date, no need for addiiontal mammogram due to age, I discussed case with both patient and sun and they agreed to no further screening Bone density test: Dexa scan placed on 11/26/23 Eye exam: Referral placed to [facility] Lipids/FBS: TBO Vaccinations: COVID booster today, agreed to get RSV at local pharmacy .She had Td 2022, next one due 2032. other adult IZ are up to date. Assessment & Plan (11/23/2022 2:02 PM EDT): Discussed with patient re increase fresh fruit and vegetable intake. Counseled re moderate exercise as tolerated, up to 20min/d Patient feels safe at home. PAP smear: no history of abnormal Pap, she does not need pap smear any longer due to age Mammogram: up to date, no need for addiiontal mammogram due to age, I discussed case with both patient and sun and they agreed to no further screening Bone density test: up to date, next one due March 2024 Eye exam: pt declined referral for eye examination Lipids/FBS: TBO Vaccinations: She had Td today, next one due 2032, she was advised to go for Covid booster at our [facility]. Order TB testing, other adult IZ are up to date. Dietary counseling 11/23/2022 Exercise counseling 11/23/2022 Lymphocytopenia 10/17/2022 Total urinary incontinence 10/17/2022 Assessment & Plan (11/23/2022 3:16 PM EDT): Pt has limited mobility, should be using diapers (Double XL) She has done occasional Kegel exercise which are not very effective due to lack of mobility and obesity Use zinc oxide for skin protection and treat candidasis PRN Primary osteoarthritis of both knees 10/17/2022 Assessment & Plan (11/23/2022 3:17 PM EDT): Pt has limited mobility and partial improvement with steroid injection continue ambulation with cane as tolerated will prescribe transport wheelchair for longer travels counseled refarding weight reduction and continue tylenol PRN Stress incontinence of urine 12/23/2018 Snoring 10/24/2018 Candidiasis of perineum 09/11/2017 Assessment & Plan (11/26/2023 9:58 AM EDT): Clear today, no rash seen. 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 Ordered Dexa scan to be completed. check vit d levels prior to next appointment. counceled regarding risk of falls. Pt has DME at home to prevent falls. Advised to move her to a first floor appartment, that will be discussed with patient's daughter who lives on first floor. Assessment & Plan (11/23/2022 3:21 PM EDT): Bone density test last year continue Actonel and vit d supplementaiton check vit d levels prior to next appointment counceled regarding risk of falls Visual impairment 06/06/2017 Mixed stress and urge urinary incontinence 06/06 Eczema 05/07/2017 Edema of lower extremity 09/28/2015 Impaired fasting glucose 11/27/2012 Assessment & Plan (11/23/2022 3:18 PM EDT): I have discussed with patient regarding increasing physicial activity and decrease calorie intake I'll check FBS with next set of labs. To check RBS at next visit. 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 Continue Keppra BID Primary hypertension 08/27/1958 Assessment & Plan (09/11/2024 4:22 PM EST): BP is at goal, mostly on the low side. Lower diltiazem to 300mg/d and continue lisinopril same dose Continue to check BP daily and fu in 3-4w to see if meds need to be adjusted. Check labs today Influenza IZ today Assessment & Plan (11/26/2023 10:18 AM EDT): BP is not at goal today, Son reports BP at home always below 140/80 Continue diltiazem, lasix 40mg BID , lisinopril Counseled re low salt diet/increase moderate physical activity. Check home BP BIW and prn CP/PAEZ/CHAUHAN Non smoking patient. Assessment & Plan (11/23/2022 3:15 PM EDT): BP is at goal. Continue diltiazem, lasix 40mg BID (to continue being prescried by renal), lisinopril FU in 6 months with labs Counseled re low salt diet/increase moderate physical activity. Check home BP BIW and prn CP/PAEZ/CHAUHAN Non smoking patient. Hyperlipidemia 08/27/1958 Assessment & Plan (11/26/2023 10:01 AM EDT): - Lipids normal one year ago - Continue Atorvastatin - F/u lipids in 2 years Class 3 severe obesity due t o excess calories with serious comorbidity and body mass index (BMI) of 45.0 to 49.9 in adult 08/27/1958 Assessment & Plan (11/26/2023 9:35 AM EDT): Discussed re weight reduction options including exercise, life style modifications, diet, referral to erp specialist. Discussed re lower calorie intake, increase dietary fiber Pt has limited mobility, limited ability to do exercise Assessment & Plan (11/23/2022 3:18 PM EDT): Discussed re weight reduction options including exercise, life style modifications, diet, referral to erp specialist. Discussed re lower calorie intake, increase dietary fiber Pt has limited mobility, limited ability to do exercise Resolved Problems Problem Noted Date Diagnosed Date Resolved Date Dysuria 09/11/2017 09/11/2024 CKD (chronic kidney disease) stage 3, GFR 30-59 ml/min 08/22/2013 11/26/2023 Encounters Date Type Department Care Team Description 10/08/2024 Refill [facility] [address] [place], [place] [phone] Roslyn Rodriguez MD 09/24/2024 Refill [facility] [address] [place], [place] [phone] Roslyn Rodriguez MD 09/12/2024 Telephone [facility] [address] [place] [address] Alie Soto RN [facility] 09/11/2024 10:45 AM EST Office Visit [facility] [address] [place] [address] Roslyn Rodriguez MD Vitamin D deficiency (Primary Dx); Primary hypertension; Impaired fasting glucose; Choledocholithiasis; Slow transit constipation; Dry skin; Encounter for immunization; Venous stasis dermatitis of both lower extremities 09/11/2024 Travel 09/09/2024 Telephone [facility] [address] [place] [address] June Desouza MA Chart prep 08/11/[address] [facility] [address] [place] [address] Roslyn Rodriguez MD Care Coordination from Last 3 Months Immunizations Name Administration Dates Next Due Influenza High-dose Quadriva lent Preservative Free 06/01/2021 Influenza Quadrivalent Adjuvanted 07/12/2022 Influenza injectable quadriv alent preservative free 06/26/2020,07/26/2018 Influenza, High Dose Seasona l, Preservative Free 09/11/2024,09/05/2019,06/06/2017,04/27 Influenza, IIV3, injectable 05/20/2014, 1 Influenza, Split (incl. yarely fied surface antigen) 05/23/2013 Moderna Covid-19 Vaccine 6+ Bivalent 11/23/2022 Pfizer Covid-19 Vaccine 12+ 11/26/2023 Pneumococcal Conjugate PCV 13 07/26/2018 Pneumococcal Polysaccharide PPSV23 05/05/2014, TD (adult), 2 Lf tetanus tox oid, preservative free, adsorbed 07/11/2002 Td (adult), 5 Lf tetanus tox oid, preservative free, adsorbed 11/23/2022 Tdap 11/27/2012 Zoster, Recombinant 07/05/2020,04/29/2020 Social History Tobacco Use Types Packs/Day Years Used Date Smoking Tobacco: Never Passive Smoke Exposure: Never Smokeless Tobacco: Never Tobacco Cessation:Counseling Given: Not Answered Alcohol Use Standard Drinks/Week Comments Never 0 (1 standard drink = 0.6 oz pur e alcohol) Depression Answer Date Recorded Patient Health Questionnaire-9 Score 0 11/26/2023 Patient Health Questionnaire-9 Score 0 11/26/2023 Last PHQ-9: Questionnaire Data Not on file 0 11/26/2023 Housing Stability Answer Date Recorded What is your housing situation today? I have salome lux 07/07/[address] you li ve. Do you have problems with any of the following? None of the above 07/07/2023 Food Insecurity Answer Date Recorded Within the past 12 months, y ou worried that your food would run out before you got money to buy more: Never True 07/07/2023 Within the past 12 months,th e food you bought just didn't last and you didn't have enough money to get more: Never True 06/2023 Transportation Answer Date Recorded In the past 12 months, has l ack of transportation kept you from medical appts, meetings, work or from getting things needed for daily living? No 07/07/2023 Utilities Answer Date Recorded In the past 12 months, has t he electric, gas, oil or water company threatened to shut off services in your home? No 07/07/2023 Depression Answer Date Recorded Patient Health Questionnaire-2 Score 0 11/26/2023 Comments Unknown Sex and Gender Information Value Date Recorded Sex Assigned at Female 06/26/2022 10:14 AM EDT Legal Sex Female 10:14 AM EDT Gender Identity Female 06/26/2022 10:14 AM EDT Sexual Orientation Choose not to disclose 2021 10:14 AM EDT Last Filed Vital Signs Vital Sign Reading Time Taken Comments Blood Pressure 120/44 09/11/2024 10:36 AM EST Pulse 66 09/11/2024 10:36 AM EST Temperature 36.2 ??C (97.2 ??F) 09/11/2024 10:[address] Respiratory Rate 18 09/11/2024 10:36 AM EST Oxygen Saturation 98% 11/26/2023 9:20 AM EDT Inhaled Oxygen Concentration - - Weight 87.5 kg (193 lb) 11/26/2023 9:20 AM EDT Height 147.3 cm (4' 10 ) 11/26/2023 9:20 AM EDT Body Mass Index 40.34 11/26/2023 9:20 AM EDT Plan of Treatment Health Maintenance Due Date Last Done Comments Alcohol/Substance Use Screening 1947 RSV Patients and Patients Aged 60 years or older (1 - 1-dose 75+ series) 2011 COVID-19 Vaccine (2023- season) 2024 11/26/2023, 11/23/2022, 07/05/2021, Additional history exists SDOH Screening 11/14/2024 11/15/2023 Depression Screening 11/25/2024 11/26/2023, 11/26/19 24 Tobacco Screening 09/11/2025 09/11/2024 Lipid Panel 11/24/2027 11/23/2022, 10/01/2021, 04/29/2020 DTaP/Tdap/Td Vaccines (3 - Td or Tdap) 11/23/2032 11/23/2022, 11/27/2012, 07/11/2002 Pneumococcal Vaccine: 50+ Years Completed 07/26/2018, 05/05/2014, 08/21/2002 Zoster Vaccines Completed 07/05/2020, 04/29/2020 Influenza Vaccine Completed 09/11/2024, , 06/01/2021, Additional history exists HIB Vaccines Aged Out No longer eligi ble based on patient's age to complete this topic HPV Vaccines Aged Out No longer eligi ble based on patient's age to complete this topic Hepatitis A Vaccines Aged Out No long er eligible based on patient's age to complete this topic Hepatitis B Vaccines Aged Out No long er eligible based on patient's age to complete this topic IPV Vaccines Aged Out No longer eligi ble based on patient's age to complete this topic Meningococcal Vaccine Aged Out No jony alysha eligible based on patient's age to complete this topic RSV under 20 months Aged Out No longe r eligible based on patient's age to complete this topic Rotavirus Vaccines Aged Out No longer eligible based on patient's age to complete this topic Procedures Procedure Name Priority Date/Time Associated Diagnosis Comments T-SPOT(R).TB Routine 09/11/2024 11:34 AM EST Choledocholithiasis HEPATIC FUNCTION PANEL Routine 09/11/2024 11:34 AM EST Choledocholithiasis VITAMIN D,25-OH,TOTAL,IA Routine 09/11/2024 11:34 AM EST Vitamin D deficiency LIPID PANEL WITH REFLEX TO DIRECT LDL Routine 11/23/2022 10:53 AM EDT Benign hypertension from Last 3 Months or Most Recently Relevant to Health Maintenance Results * (ABNORMAL) Vitamin D, 25-Hydroxy, Total, Immunoassay (09/11/2024 11:34 AM EST) Vitamin D 25-OH Total 29.1(L) >30 ng/mL [facility] Comment:Health Based Referen ce Values*< 20 ng/mL Ewvefhewi19-31 ng/mL Insufficient> 30 ng/mL Sufficient*Escobar LI. N Engl J Med. 2007;357:266-280Care must be taken in interpreting Vitamin D results fromdifferent laboratories and methodologies. Published datademonstrated that results from patients undergoinghemodialysis may show a negative bias when tested withvarious automated 25-OH vitamin D assays when compared toLC-MS/MS.When testing samples from patients whose predominant form ofVitamin D is Vitamin D2, such as patients receiving VitaminD2 supplementation, results that are subtherapeutic shouldbe confirmed with another method such as LC-MS/MS. Blood 09/11/2024 11:3 4 AM EST 09/11/2024 1:03 PM EST us Roslyn Rodriguez MD LAB BLOOD ORDERABLES Fin al Result [facility] [address] [place] [phone] * T-SPOT??.TB (09/11/2024 11:34 AM EST) Pathologist [facility] T Spot TB Negative Negative [facility] Comment:A negative test resu lt does not exclude the possibilityof exposure to or infection with Mycobacteriumtuberculosis (M. tuberculosis). Patients with recentexposure to TB infected individuals exhibiting anegative T-SPOT.TB result should be considered forretesting within 6 weeks or if other relevant clinicalsymptoms indicate. Results from T-SPOT.TB testing mustbe used in conjunction with each individual'sepidemiological history, current medical status,and results of other diagnostic evaluations.The T-SPOT.TB test is qualitative and results arereported as positive, borderline, or negative, giventhat the test controls perform as expected. In linewith the Centers for Disease Control and Prevention's2010 recommendation to report quantitative measurementsalongside the qualitative result, the laboratoryprovides spot counts for informational purposes only.The T-SPOT.TB test should not be interpreted as aquantitative test. TS PANEL A 1 [facility] TS PANEL B 0 [facility] Negative Control Passed [facility] Positive Control Passed [facility] Comment:For additional infor mation, please refer tohttp://education.Design Within Reach/faq/VLK136(This link is being provided for informational/educational purposes only.)THIS TEST WAS PERFORMED AT:[employer] [id number] [place] [address]TPTOKYPALECIA MENDOZA MD,PHD 09/11/2024 11:3 4 AM EST 09/11/2024 1:01 PM EST us Roslyn Rodriguez MD LAB BLOOD ORDERABLES Fin al Result [facility] [address] [place] [phone] * (ABNORMAL) Hepatic Function Panel (09/11/2024 11:34 AM EST) Bilirubin, Total 0.3 0.0 - 1.0 mg/dL [facility] Bilirubin, Direct 0.2 0.0 - 0.5 mg/dL [facility] Aspartate Amino Transferase 48(H) 5 - 31 U/L [facility] Alanine Aminotransferase 31 0 - 31 U/L [facility] Total Protein 8.3(H) 6.5 - 8.0 g/dL [facility] Albumin Level 3.5 3.5 - 5.0 g/dL [facility] Alkaline Phosphatase 110 39 - 117 U/L [facility] Blood Venous blood specimen / Unknown 09/11/2024 11:34 AM EST 09/11/2024 1:03 PM EST us Roslyn Rodriguez MD LAB BLOOD ORDERABLES Fin al Result [facility] [address] [place] [phone] * Lipid Panel with Reflex to Direct LDL (11/23/2022 10:53 AM EDT) Cholesterol, Total 122 <200 mg/dL [facility] HDL Cholesterol 53 > OR = 50 mg/dL [facility] Triglycerides 73 <150 mg/dL [facility] LDL Cholesterol 54 mg/dL (calc) [facility] Comment: Reference range: <100 Desirable range <100 mg/dL for primary prevention; ?? <70 mg/dL for patients with CHD or diabetic patients with > or = 2 CHD risk factors. LDL-C is now calculated using the Wallace-Figueroa calculation, which is a validated novel method providing better accuracy than the Friedewald equation in the estimation of LDL-C. Wallace CALDWELL et al. JOY. 2013;310(19): 4626-7508 (http://education.Doculogy.Compute/faq/SVC086) Chol/HDLC Ratio 2.3 <5.0 (calc) [facility] Non-HDL Cholesterol 69 <130 mg/dL (calc) [facility] Comment: For patients with diabetes plus 1 major ASCVD risk factor, treating to a non-HDL-C goal of <100 mg/dL (LDL-C of <70 mg/dL) is considered a therapeutic option. 11/23/2022 10:5 3 AM EDT 11/23/2022 10:54 AM EDT Narrative [facility] - 11/23/2022 8:41 PM EDT FASTING:YES FASTING: YES Roslyn Rodriguez MD LAB BLOOD ORDERABLES Fin al Result [facility] [address], [place] [address] [facility] [address] [place] [address] from Last 3 Months or Most Recently Relevant to Health Maintenance Insurance Care Teams Whiteprinting Machine Operator Relationship Specialty Start Date End Date Roslyn Rodriguez MD [address] [phone] PCP - General Family Medicine 04/11/17 [facility] 08/05/24
--- OUTSIDE RECORDS SUMMARY | 2024-10-15 10:31 | XMS_ITS | Encounter Summary ---
Author Organization [facility], Address [address] [facility] [address] [place] [address] Phone Care Team Providers Care Building Wrecker Name Role Phone Roslyn Rodriguez MD Primary Care Provider + [phone] Encounter Details Date Type Department Care Team (Late st Contact Info) Description 05/07/2023 Documentation Only [facility], [address] [place] [address] Sandra Bryan PA Social History Tobacco Use Types Packs/Day Years Used Date Smoking Tobacco: Never Alcohol Use Standard Drinks/Week Comments No 0 (1 standard drink = 0.6 oz pure alcohol) Alcoholic Drinks/day: Occasional social drink Comments Unknown Sex and Gender Information Value Date Recorded Sex Assigned at Not on file Legal Sex Female 4:36 PM EST Gender Identity Not on file Sexual Orientation Not on file documented as of this encounter Plan of Treatment Not on file documented as of this encounter Visit Diagnoses Not on filedocumented in this encounter Care Teams Building Wrecker Relationship Specialty Start Date End Date Roslyn Rodriguez MD [address] [place] [phone] PCP - General 07/01/19 documented as of this encounter
--- OUTSIDE RECORDS SUMMARY | 2024-10-15 10:31 | XMS_ITS | Encounter Summary ---
Author Organization [facility], Address [address] [facility] [address] [place] [address] Phone Care Team Providers Care Land Commissioner Name Role Phone Roslyn Rodriguez MD Primary Care Provider + [phone] Reason for Visit * Reason Comments Med Refill Encounter Details Date Type Department Care Team (Late st Contact Info) Description 03/07/2021 Refill [facility] [address] [place] [address] Terry Fregoso MD [facility] [address] [place] [phone] Social History Tobacco Use Types Packs/Day Years [...] on filedocumented in this encounter Care Teams Land Commissioner Relationship Specialty Start Date End Date Rolsyn Rodriguez MD [address] [place] [address] [phone] PCP - General 07/01/19 documented as of this encounter
--- OUTSIDE RECORDS SUMMARY | 2024-10-15 10:31 | XMS_ITS | Encounter Summary ---
Author Organization [employer] Address [address] [facility] 7t [place] [address] Care Team Providers Care De Icer Installer Name Role Phone Roslyn Rodriguez MD Primary Care Provider + Reason for Visit * Reason Comments Med Refill Encounter Details Date Type Department Care Team ([facility] st Contact Info) Description 09/24/2024 Refill [facility] MEDICINE [address] [place], [place] [phone] Roslyn Rodriguez MD [address] [place], [place] [phone] Social History Tobacco Use Types Packs/Day Years Used Date Smoking Tobacco: Never Passive Smoke Exposure: Never Smokeless Tobacco: Never Alcohol Use Standard Drinks/Week Comments Never 0 [...] not to disclose 2021 10:14 AM EDT documented as of this encounter Plan of Treatment Not on file documented as of this encounter Visit Diagnoses Not on filedocumented in this encounter Additional Health Concerns Assessment Noted Time PHQ-9 Depression Total Score: 0 11/26/19 24 9:21 AM EDT documented as of this encounter Care Teams De Icer Installer Relationship Specialty Start Date End Date Roslyn Rodriguez MD [address] [place] [address] PCP - General Family Medicine 04/11/17 [facility] 08/05/24 documented as of this encounter
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
--- OUTSIDE RECORDS SUMMARY | 2024-10-15 10:31 | XMS_ITS | Encounter Summary ---
Author Organization [facility], Address [address] [place] [address] Phone Care Team Providers Care Vaccine Customer Representative Name Role Phone Roslyn Rodriguez MD Primary Care Provider + [phone] Encounter Details Date Type Department Care Team (Late st Contact Info) Description 04/17/2022 Documentation Only [facility], [address] [place] [address] Terry Fregoso MD [address] [place] [id number] Social History Tobacco Use Types Packs/Day Years [...] on filedocumented in this encounter Care Teams Vaccine Customer Representative Relationship Specialty Start Date End Date Roslyn Rodriguez MD [address] [place] [phone] PCP - General 07/01/19 documented as of this encounter
--- OUTSIDE RECORDS SUMMARY | 2024-10-15 10:31 | XMS_ITS ---
Author Organization [facility] [employer] Address Unknown Allergies, Adverse Reactions, Alerts Substance Reaction Status Noted Date Resolved Date fish active Encounters Encounter Performer Performer Role Encounter Diagnoses Location Date Discharge - Discharged to home or self care - Home([address] [place] [address] [facility] [employer] 09/13/2011 07:30 pm EST - 09/29/2011 01:00 pm EST Social History
--- OUTSIDE RECORDS SUMMARY | 2024-10-15 10:31 | XMS_ITS | Encounter Summary ---
Author Organization [employer] Address [address] [facility] 7t [place] [address] Care Team Providers Care Engine Research Engineer Name Role Phone Roslyn Rodriguez MD Primary Care Provider + Reason for Visit * Reason Comments Med Refill Encounter Details Date Type Department Care Team ([facility] st Contact Info) Description 10/08/2024 Refill [facility] MEDICINE [address] [place], [place] [phone] Roslyn Rodriguez MD 230 [place], [place] [phone] Social History Tobacco Use Types Packs/Day Years [...] documented as of this encounter Care Teams Engine Research Engineer Relationship Specialty Start Date End Date Roslyn Rodriguez MD [address] [place] [address] PCP - General Family Medicine 04/11/17 [facility] 08/05/24 documented as of this encounter
--- OUTSIDE RECORDS SUMMARY | 2024-10-15 10:31 | XMS_ITS | Encounter Summary ---
Author Organization [employer] Address [address] [facility] 7t [place] [address] Care Team Providers Care Beam Worker Name Role Phone Roslyn Rodriguez MD Primary Care Provider + Reason for Visit * Reason Onset Date Comments VNA services 09/12/2024 Encounter Details Date Type Department Care Team ([facility] st Contact Info) Description 09/12/2024 Telephone [facility] MEDICINE [address] [place] [address] Alie Soto, RACHEAL [address] [place], [place] [phone] VNA services Social History Tobacco Use Types Packs/Day Years [...] is your housing situation today? I have salomejeferson lux 07/07/[address] [...] AM EDT documented as of this encounter Miscellaneous Notes * Telephone Encounter - Alie Soto RN - 09/17/2024 2:10 PM EST RN received incoming call from [facility] (Idania) in regards to below message. [facility] reports they will discuss with [facility] the need for VNA services. [facility] reports the patient is only currently authorized to receive VNA services until 10/07/2024. Idania to f/u PRN. * Telephone Encounter - Alie Soto RN - 09/12/2024 4:35 PM EST RN called [facility] [phone] to inform [facility] CM regarding below message. CM was unavailable when RN called, RN was informed a message will be sent to [facility] CM for them to return call to [facility]. [facility] CM to f/u. * Telephone Encounter - Roslyn Rodriguez MD - 09/12/2024 4:20 PM EST Ok, as per son, he's the one checking and keeping track of the drain , checking patient's VS and managing meds. Please let [facility] CM know to fu on that. * Telephone Encounter - Alie Soto RN - 09/12/2024 8:41 AM EST RN called [facility] at [phone] to inquire on below message. RN was informed the patient is still receiving VNA services 3x/week (Sunday, Sunday and Sunday) for assistance with medication management (if son is not there) and for BROOK drain care. [facility] reports the patient was referred to themwhen she was discharged from the hospital as the patient and the family did not know how to take care of the drain. Red reports the nurses last note stated the bulb had pee colored liquid and 20-50ml's of fluid. Red reports they will continue to see the patient while the BROOK drain still has fluid. Sending to PCP as FYI. ----- Message from Roslyn Rodriguez MD sent at 09/11/2024 4:27 PM EST ----- I lowered diltiazem to 300mg today. Her son is checking BP and taking care of cholecystostomy bag but she has a VNA going bid for unclear reason. Please find out what's the VNA doing now, I don't think she needs VNA anymore. Let me know if there is any other skilled need she has? Check with [facility]. documented in this encounter Plan of Treatment Not on file documented as of this encounter Visit Diagnoses Not on filedocumented in this encounter Additional Health Concerns Assessment Noted Time PHQ-9 Depression Total Score: 0 11/26/19 9:21 AM EDT documented as of this encounter Care Teams Beam Worker Relationship Specialty Start Date End Date Roslyn Rodriguez MD [address] [place] [phone] PCP - General Family Medicine 04/11/17 [facility] 08/05/24 documented as of this encounter
--- OUTSIDE RECORDS SUMMARY | 2024-10-15 10:32 | XMS_ITS | Encounter Summary ---
Author Organization [facility], Address PO [facility] [address] [place] [address] Phone Care Team Providers Care Brusher Operator Name Role Phone Roslyn Rodriguez MD Primary Care Provider + [phone] Encounter Details Date Type Department Care Team (Late st Contact Info) Description 05/10/2023 Documentation Only [facility], [address] [place] [address] Sandra Bryan PA Social History [...] on filedocumented in this encounter Care Teams Brusher Operator Relationship Specialty Start Date End Date Roslyn Rodriguez MD [address] [place] [address] PCP - General 07/01/19 documented as of this encounter
--- OUTSIDE RECORDS SUMMARY | 2024-10-15 10:32 | XMS_ITS | Encounter Summary ---
Author Organization [employer] Address [address] [facility] 7t [place] [address] Care Team Providers Care Manager Internship Name Role Phone Roslyn Rodriguez MD Primary Care Provider + Encounter Details Date Type Department Care Team ([facility] st Contact Info) Description 10/17/2022 Orders Only [facility] MED & PEDS [address] [place] [address] Ophelia Fonseca LPN Social History Tobacco Use Types Packs/Day Years Used Date Smoking Tobacco: Never Assessed Comments Unknown Sex and Gender Information Value [...] on filedocumented in this encounter Care Teams Manager Internship Relationship Specialty Start Date End Date Roslyn Rodriguez MD [address] [place] [address] PCP - General Family Medicine 04/11/17 [facility] 08/05/24 documented as of this encounter
--- OUTSIDE RECORDS SUMMARY | 2024-10-15 10:32 | XMS_ITS | Encounter Summary ---
Author Organization [facility], Address PO [facility] [address] [place] [address] Phone Care Team Providers Care Photonics Engineer Name Role Phone Roslyn Rodriguez MD Primary Care Provider + [phone] Encounter Details Date Type Department Care Team (Late st Contact Info) Description 12/24/2023 Orders Only [facility], [address] [place] [address] Sandra Bryan PA Stage 3b chronic kidney disease (HCC); Hypertensive disorder; Hypervolemia Social History Tobacco Use Types Packs/Day Years [...] documented as of this encounter Visit Diagnoses Diagnosis Stage 3b chronic kidney disease (HCC) Hypertensive disorder Hypervolemia documented in this encounter Care Teams Photonics Engineer Relationship Specialty Start Date End Date Roslyn Rodriguez MD [address] [place] [address] PCP - General 07/01/19 documented as of this encounter
--- OUTSIDE RECORDS SUMMARY | 2024-10-15 10:32 | XMS_ITS | Clinical Summary ---
Author Organization [facility] Address [address] [place] [address] Care Team Providers Care Db2 Dba Name Role Phone Unavailable Primary Care Provider Unavailabl e Social History Tobacco Use Types Packs/Day Years Used Date Smoking Tobacco: Never Assessed Sex and Gender Information Value Date Recorded Sex Assigned at Not on file Gender Identity Not on file Sexual Orientation Not on file Plan of Treatment Health Maintenance Due Date Last Done Comments DTaP/Tdap/Td Vaccines (1 - Tdap) 1955 Pneumococcal Vaccines 50+ (1 of 1 - PCV) 1986 Zoster (Shingles) Vaccine (1 of 2) 1986 RSV Vaccine 60 years and old er and Patients (1 - 1-dose 75+ series) 2011 COVID-19 Vaccine ( - 2023-2 5 season) 2024 Hepatitis B Vaccines Aged Out No long er eligible based on patient's age to complete this topic
--- OUTSIDE RECORDS SUMMARY | 2024-10-15 10:32 | XMS_ITS | Clinical Summary ---
Author Organization [facility], Address [address] [place] [address] [place] [address] Phone Care Team Providers Care Distribution Clerk Name Role Phone Roslyn Rodriguez MD Primary Care Provider + [phone] Allergies Active Allergy Reactions Criticality Noted Date Comments Fish Allergy Other (see comments) 09/09/2019 Nitrofurantoin Rash Low 08/02/2020 Medications lisinopril (PRINIVIL,ZESTR IL) 40 MG tablet Take 40 mg by mouth 1 (one) time each day 9 Active levETIRAcetam (KEPPRA) 500 MG tablet TK 1 T PO BID 9 Active Calcium Carb-Cholecalci ferol (calcium carbonate-vitam in D) 500-200 MG-UNIT per tablet Take 1 tablet by mouth 2 (two) times a day with meals Active acetaminophen (TYLENOL) 325 MG tablet Take 650 mg by mouth every 6 (six) hours if needed for mild pain Active furosemide (LASIX) 40 MG tablet TAKE 1 TABLET BY MOUTH TWICE DAILY AT 7AM AND AT 2PM 60 tablet 11 2 Active risedronate (ACTONEL) 35 MG tablet TAKE 1 TABLET BY MOUTH EVERY WEEK IN THE MORNING AT LEAST 30 MINUTES BEFORE FIRST FOOD OR BEVERAGE OR MEDICATION OF DAY 2 Active atorvastatin (LIPITOR) 20 MG tablet 3 Active dilTIAZem (TIAZAC) 360 MG 24 hr capsule Take by mouth 1 (one) time each day 3 Active ergocalciferol 1.25 MG (65204 UT) capsule Take 1 capsule (50,000 Units total) by mouth 1 (one) time per week 12 capsule 3 03/14/202 4 11/08/19 25 Active Mirabegron ER 25 MG tablet sustained-relea se 24 hour TAKE 1 TABLET BY MOUTH EVERY DAY 90 tablet 3 4 Active Mirabegron ER 25 MG tablet sustained-relea se 24 hour TAKE 1 TABLET BY MOUTH 1 TIME EACH DAY 90 tablet 3 4 Active Active Problems Problem Noted Date Diagnosed Date Hypervolemia 05/14/2023 Stage 3b chronic kidney disease 04/09/2021 Hypertensive disorder 09/09/2019 Hypertensive heart disease without congestive he art failure 09/09/2019 Resolved Problems Problem Noted Date Diagnosed Date Resolved Date Hyperlipidemia 09/09/2019 04/09/2021 Immunizations Name Administration Dates Next Due Influenza Split High Dose Preservative Free IM 0 04/27/2015 Zoster 07/05/2020,04/29/2020 Family History Medical History Relation Comments Kidney disease Child 1 daughter Diabetes Child 2 daughter Hypertension Child 3 daughter Heart disease Child 4 daughter Kidney disease Child 5 daughter Hypertension Sibling sister Relation Status Comments Child 1 Child 2 Child 3 Child 4 Child 5 Father Mother Sibling Social History Tobacco Use Types Packs/Day Years Used Date Smoking Tobacco: Never Tobacco Cessation:Counseling Given: Not Answered Alcohol Use Standard Drinks/Week Comments No 0 (1 standard drink = 0.6 oz pure alcohol) Alcoholic Drinks/day: Occasional social drink Comments Unknown Sex and Gender Information Value Date Recorded Sex Assigned at Not on file Legal Sex Female 4:36 PM EST Gender Identity Not on file Sexual Orientation Not on file Last Filed Vital Signs Vital Sign Reading Time Taken Comments Blood Pressure 122/82 05/14/2023 2:19 PM EDT Pulse 74 07/14/2019 12:00 PM EST Temperature - - Respiratory Rate 16 07/14/2019 12:00 PM EST Oxygen Saturation - - Inhaled Oxygen Concentration - - Weight 89.8 kg (198 lb) 05/14/2023 2:19 PM EDT Height 152.4 cm (5') 05/14/2023 2:19 PM EDT Body Mass Index 38.67 05/14/2023 2:19 PM EDT Plan of Treatment Health Maintenance Due Date Last Done Comments Influenza Vaccine (#1) 2024 2, 06/26/2020, 09/05/2019, Additional history exists Pneumococcal Vaccine: 65+ Years Completed 07/26/2018, 05/05/2014, 08/21/2002 Hepatitis B Vaccine Aged Out No longe r eligible based on patient's age to complete this topic Insurance [facility] ONE CARE DUAL SNP ([id number]) [place] [id number] Care Teams Distribution Clerk Relationship Specialty Start Date End Date Roslyn Rodriguez MD [address] [place] [address] PCP - General 07/01/19
[2024-10-15] MEDS: iohexoL 300 MG/ML 50 ML INFUS..BTL 30 ML INTRAARTIC (11:23)
== END 2024-10-15 10:02 | disposition home or self-care (01) ==
LOC: HO.XRAY 10:01
PROVIDERS: PCP Internal Medicine; Visit Provider Surgery
DX: Z98.890 Other specified postprocedural states (principal)
CPT/HCPCS: 76000; Q9967

== ENCOUNTER → 2024-10-15 10:32 | Outpatient (BNV) | payer MEDICARE, SELFPAY | PROVIDERS: PCP Internal Medicine; Visit Provider Physician Assistant Surgical | DX: K80.80 Other cholelithiasis without obstruction (principal) | CPT/HCPCS: 76000 ==

== ENCOUNTER 2025-06-16 18:21 | Inpatient (IN) | payer OTHER, SELFPAY ==
--- NOTE | ~2025-06-16 | CT_ITS ---
CLINICAL HISTORY: unwitnessed fall, AMS CT head without contrast Comparison: CT/SR - CT HEAD WITHOUT IV CONTRAST - 06/01/24 23:39 EDT Findings: Streak artifact related to right-side embolization coil along the carotid terminus/MCA. Scattered subcortical and periventricular hypoattenuation, likely in keeping with chronic small vessel ischemic disease. Parenchymal volume loss with compensatory prominence of the ventricles and CSF spaces. No acute territorial infarction, intracranial hemorrhage, midline shift or hydrocephalus. 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 Mineralization in the basal ganglia noted. 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 The visualized paranasal sinuses and mastoid air cells are normal. The orbits are within normal limits. There is no acute fracture. Bilateral lens extraction. IMPRESSION: 1. No acute intracranial abnormality. 2. Additional findings as described. This document has been electronically signed by: Jovani Sims MD on 06/16/2025 22:33:42
--- NOTE | ~2025-06-16 | XR_ITS ---
CLINICAL HISTORY: fever 1 view chest x-ray Comparison: None provided Findings: The lungs are clear. Prominent cardiac silhouette. No acute fracture. IMPRESSION: 1. No acute findings. This document has been electronically signed by: Jovani Sims MD on 06/16/2025 22:39:48
--- NOTE | ~2025-06-16 | CT_ITS ---
CLINICAL HISTORY: unwitnessed fall, AMS CT cervical spine without contrast Comparison: None provided Findings: Exaggeration of the cervical lordosis. Osteopenia. Multilevel spondylosis with osteophytosis, uncovertebral hypertrophy, facet arthropathy and degenerative disc disease. Diffuse spinal canal narrowing, for example moderate at C3-C4 with severe left foraminal stenoses. No acute fractures or dislocations. No acute findings on limited view of the intracranial contents. Multinodular thyroid gland largest in the left measuring 2.7 cm with scattered calcifications. This may be further evaluated with ultrasound. No consolidation or effusion at the lung apices. IMPRESSION: No acute findings. Additional findings as described. Impression This document has been electronically signed by: Jovani Sims MD on 06/16/2025 22:34:15
[2025-06-16 18:30] VITALS: BP 130/70; BP 145/63; PULSE 80; PULSE 88; RESP 20; TEMP 37.7; O2SAT 97; BMI 32.4
--- NOTE | 2025-06-16 18:40 | ECG_ITS ---
Test Reason : ams Blood Pressure : */* mmHG Vent. Rate : 87 BPM Atrial Rate : 87 BPM P-R Int : 142 ms QRS Dur : 104 ms QT Int : 382 ms P-R-T Axes : 85 -21 18 degrees QTcB Int : 459 ms Normal sinus rhythm Incomplete right bundle branch block Nonspecific ST and T wave abnormality Abnormal ECG When compared with ECG of 01-Jun-2024 22:13, Incomplete right bundle branch block is now Present Referred By: Generic ED Physician Electronically Signed By: UMAIR CAGE MD
[2025-06-16 18:59] LABS: MANUAL DIFF FLAG NO
[2025-06-16 19:00] VITALS: BP 133/41; PULSE 74; RESP 16; TEMP 37.4; O2SAT 96
--- NOTE | 2025-06-16 19:06 | PC.NURSE ---
Pt arrived via EMS for concern of not eating, not acting like herself and talking to her sister per family. Upon arrival to ED, pt oriented to person and place, did not know month/day of week. With medical chief technician, pt not making much sense with her statements. Warm to touch, inital rectal temp 100; rectal probe placed. Other vitals stable. Pt wheelchair bound per family. Standing labs/EKG ordered. Second IV placed. Pt on full monitor. Son at bedside
[2025-06-16 19:07] LABS: Hematocrit 41.1 % (37.0-47.0); Hemoglobin 13.8 g/dl (12.0-16.0); Imm Gran Abs Auto 0.02 X10*3/uL (0.00-0.03); Imm Gran Pct Auto 0.3 % (0.0-0.4); Lymphocytes Absolute Auto 2.9 X10*3/uL (1.2-4.9); Mean Corpuscular HGB Conc 33.6 g/dl (31.0-35.0); Mean Corpuscular Hemoglobin 29.7 pg (27.0-33.0); Mean Corpuscular Volume 88.4 fL (80.0-98.0); NRBC Abs Auto 0.000 X10*3/uL (0.0-0.012); NRBC Pct Auto 0.0 /100WBC (0.0-0.2); Platelet Count 263 X10*3/uL (160-400); Red Blood Count 4.65 X10*6/uL (4.20-5.50); White Blood Count 7.1 X10*3/uL (4.8-10.8)
[2025-06-16 19:16] LABS: Alanine Aminotransferase 25 U/L (0-31); Albumin Level 4.0 g/dL (3.5-5.0); Alkaline Phosphatase 84 U/L (39-117); Anion Gap 10 (12-20); Aspartate Amino Transferase 63 U/L (5-31); Blood Urea Nitrogen 22 mg/dL (9-16); Calcium 9.7 mg/dL (8.4-10.2); Carbon Dioxide 29 mmol/L (22-29); Chloride 107 mmol/L (96-108); Creatinine Clr Calc Pharmacy 35.4; Estimated Glomerular Filt Rate 44; Magnesium 2.3 mg/dL (1.6-2.6); Potassium 4.3 mmol/L (3.3-5.1); Sodium 142 mmol/L (135-145); Total Protein 7.7 g/dL (6.5-8.0)
[2025-06-16 19:23] LABS: Troponin-I High Sensitivity 12.8 ng/L (<3.5-17.0)
[2025-06-16 19:45] LABS: COVID-19 Test Negative (Negative); IDNOW Serial# 55D5AD1C
[2025-06-16 19:47] LABS: IDNOW Serial# 58CA691E; Influenza B2 Negative (Negative)
--- NOTE | 2025-06-16 21:31 | ED.AMS ---
HPI - Altered Mental Status General Chief Complaint: Altered Mental Status Stated Complaint: hot to touch, has not moved from bed in 2 days Time Seen by Provider: 06/16/25 20:03 Source: family and EMS Mode of arrival: EMS Limitations: altered mental status History of Present Illness ED Provider: Dr. Shiela Molina HPI narrative: Patient comes to the emergency room via ambulance from home. According to her granddaughter, the patient has been getting more confused throughout this week. Patient states that she has been talking to relatives, sees a life relatives and tells him that they are . At baseline, patient is able to have normal conversations. Also, she stopped eating and drinking couple of days ago. Patient is unable to give any history. According to the patient's granddaughter, a proximally 5 days ago patient had an episode of fever, given Tylenol and then the fever resolved. Also, the patient's granddaughter reports that a few days ago, can not remember exactly when, the patient had a fall. According to the family, patient was trying to kneel down to pray and she fell. Patient unable to give any history at all due to altered mental status Related Data Home Medications ?Medication ?Instructions ?Recorded ?Confirmed furosemide 40 mg tablet 1 tab PO BID@0700,1400 06/26/20 07/22/24 lisinopril 40 mg tablet 40 mg PO DAILY 06/26/20 07/22/24 mirabegron 25 mg tablet,extended 25 mg PO DAILY 06/26/20 07/22/24 release 24 hr (Myrbetriq) peg 324-ftjmvismwczr-ziywqbdo 1 1 drp ophthalmic (eye) BID dry eyes 06/26/20 07/22/24 %-0.2 %-0.2 % eye drops (Artificial Tears ([id number])) atorvastatin 20 mg tablet 20 mg PO DAILY 01/12/21 07/22/24 Held on 06/06/24. Instructions: Resume on 06/13/24. calcium 500 mg (as 1 tab PO DAILY 01/12/21 07/22/24 carbonate)-vitamin D3 5 mcg (200 unit) tablet diltiazem HCl 360 mg 360 mg PO DAILY 01/12/21 07/22/24 capsule,extended release 24 hr albuterol sulfate 90 mcg/actuation 2 inh inhalation Q6H PRN Shortness 06/02/24 07/22/24 aerosol inhaler (Ventolin HFA) Of Breath Or Wheezing ergocalciferol (vitamin D2) 1,250 1,250 mcg PO FR 06/02/24 07/22/24 mcg (50,000 unit) capsule levetiracetam 500 mg tablet 500 mg PO BID 06/02/24 07/22/24 risedronate 35 mg tablet 35 mg PO FR 06/02/24 07/22/24 Previous Rx's ?Medication ?Instructions ?Recorded cefuroxime axetil 500 mg tablet 500 mg PO BID #14 tabs 06/06/24 nystatin 100,000 unit/gram topical 1 appl topical BID #60 grams 08/11/24 powder Allergies Allergy/AdvReac Type Severity Reaction Status Date / Time Fish Containing Products Allergy Mild RASH Verified 06/16/25 18:39 Penicillins Allergy Mild RASH Verified 06/16/25 18:39 seafood Allergy Mild Rash Uncoded 06/16/25 18:39 Review of Systems Review of Systems: Yes Unobtainable due to mental status PMFSH Past Medical History Medical History 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 Mother No problems noted. Social History Social History Household Members: Unknown / Unable to assess Household Members Other:: Daughter [phone] Neema, Son [phone], Bill Housing: Unknown / Unable to assess Unable to assess alcohol history related to: Unable to respond Alcohol intake: never Patient Tobacco Use Status: Never used Tobacco Second Hand Smoke Exposure: No Advance Directives: No Advance Directives Information Provided: Yes service: No Physical Exam ED Exam Exam: Appearance: Alert. No acute distress, seems weak Eyes: Pupils equal, round and reactive to light. ENT: Pharynx normal. Neck: Normal inspection. Neck supple. No lymph nodes noted. No crepitus CVS: Normal heart rate and rhythm. Pulses normal. Normal S1 and S2 Respiratory: No respiratory distress. Breath sounds normal. No Wheezing. No rales Abdomen: Soft and nontender. No rigidity. No distention. Skin: Skin warm and dry. Normal skin color. Normal skin turgor. Extremities: No lower extremity edema. No Lacerations. No Rash Neuro: Moves all extremities but unable to participating cranial nerve assessment Psych: calm Vital Signs: Vital Signs - 24 hr 06/16/25 18:30 06/16/25 19:00 06/16/25 21:35 Temperature 100 F 99.3 F 99.4 F Pulse Rate 88 74 76 Respiratory Rate 20 16 18 Blood Pressure 145/63 H 133/41 L 140/56 H Pulse Oximetry 97 96 97 Oxygen Delivery Method Room Air Room Air Room Air 06/16/25 22:15 Temperature 98.6 F Pulse Rate 74 Respiratory Rate 16 Blood Pressure 152/49 H Pulse Oximetry 100 Oxygen Delivery Method Room Air BMI result Body Mass Index 32.4 Course Course Course Narrative: For about a week, patient has been having worsening altered mental status. All of patient's labs and CT scan pending. According to the family, few days ago patient had an unwitnessed fall Medications Administered Discontinued Medications Generic Name Dose Route Start Last Admin Trade Name Freq PRN Reason Stop Dose Admin Ceftriaxone Sodium 1 gm 06/16/25 22:26 06/16/25 22:34 Ceftriaxone Sodium 1 Gm Vial IVPUSH 06/16/25 22:27 1 gm ONCE ONE Administration Sodium Chloride 1,000 mls @ 999 mls/hr 06/16/25 21:32 06/16/25 22:49 Ns IVCONT 06/16/25 22:32 Infused .Q1H1M ONE Infusion Medical Decision Making Medical Decision Making [facility] Narrative: My interpretation of labs: No significant abnormality in patient's hematology or chemistry, normal LFTs, normal troponin, COVID negative, influenza negative. Urinalysis positive for nitrites In the past, patient has had positive cultures for E coli, sensitive to all antibiotics Patient received IV fluids and IV antibiotics ceftriaxone CT scan of the head does not show any acute abnormalities/brain bleed Differential Diagnosis Differential Diagnoses: The differential diagnosis associated with the presentation includes (UTI encephalopathy, dementia/sundowning, intracranial bleed) Admission/Observation Consideration of admission/observation: Escalation of care including admission/observation considered Consult Healthcare Provider Management of the patient was discussed with: Hospitalist Lab Data MDM Lab Attestation statement: I reviewed the patient's lab results. 06/16/25 18:53 06/16/25 18:53 Labs: Lab Results 06/16/25 06/16/25 06/16/25 Range/Units 18:53 19:18 21:29 WBC 7.1 (4.8-10.8) X10*3/uL RBC 4.65 (4.20-5.50) X10*6/uL Hgb 13.8 D (12.0-16.0) g/dl Hct 41.1 D (37.0-47.0) % MCV 88.4 (80.0-98.0) fL MCH 29.7 (27.0-33.0) pg MCHC 33.6 (31.0-35.0) g/dl RDW 14.1 (11.0-16.0) % Plt Count 263 D (160-400) X10*3/uL MPV 10.8 (9.4-12.3) fL Immature Gran % (Auto) 0.3 (0.0-0.4) % Neut % (Auto) 47.7 (45-73) % Lymph % (Auto) 40.8 H (20-40) % [place] % (Auto) 8.1 (2-11) % Eos % (Auto) 2.4 (0-4) % Baso % (Auto) 0.7 (0-2) % Lymph # (Auto) 2.9 (1.2-4.9) X10*3/uL [place] # (Auto) 0.6 (0.1-1.2) X10*3/uL Eos # (Auto) 0.2 (0.0-0.4) X10*3/uL Baso # (Auto) 0.1 (0.0-0.2) X10*3/uL Abs Immat Gran (auto) 0.02 (0.00-0.03) X10*3/uL Absolute Neuts (auto) 3.4 (2.0-8.3) x10*3/uL Absolute Nucleated RBC 0.000 (0.0-0.012) X10*3/uL Nucleated RBC % (auto) 0.0 (0.0-0.2) /100WBC Sodium 142 (135-145) mmol/L Potassium 4.3 D (3.3-5.1) mmol/L Chloride 107 (96-108) mmol/L Carbon Dioxide 29 (22-29) mmol/L Anion Gap 10 L (12-20) BUN 22 H (9-16) mg/dL Creatinine 1.16 (0.5-1.4) mg/dL Estim Creat Clear Calc 35.4 Estimated GFR 44 Random Glucose 105 (60-115) mg/dL Lactic Acid 1.5 (0.5-2.0) mmol/L Calcium 9.7 D (8.4-10.2) mg/dL Magnesium 2.3 (1.6-2.6) mg/dL Total Bilirubin 0.4 (0.0-1.0) mg/dL AST 63 H (5-31) U/L ALT 25 (0-31) U/L Alkaline Phosphatase 84 (39-117) U/L Troponin I High Sens 12.8 D (<3.5-17.0) ng/L Total Protein 7.7 (6.5-8.0) g/dL Albumin 4.0 (3.5-5.0) g/dL Urine Color Yellow Urine Appearance Clear Urine pH 6.0 (5.0-9.0) Ur Specific [place] 1.010 (1.005-1.025) Urine Protein Negative (Neg-Trace) mg/dL Urine Glucose (UA) Negative (Negative) mg/dL Urine Ketones Negative (Negative) mg/dL Urine Blood Negative (Negative) Urine Nitrite Positive H (Negative) Ur Leukocyte Esterase Small (1+) H (Negative) Urine RBC 0-2 (0-2) /HPF Urine WBC 11-20 H (0-5) /HPF Ur Squamous Epith Cells 0-2 (0-2) /HPF Urine Bacteria 2+ (None Seen) Hyaline Casts 0-2 (0-2) /LPF Urine Opiates Screen Not Detected (Not Detect) Ur Buprenorphine Scrn Not Detected (Not Detect) ng/mL Ur Oxycodone Screen Not Detected (Not Detect) ng/mL Urine Methadone Screen Not Detected (Not Detect) ng/mL Urine Fentanyl Screen Not Detected (Not Detect) Ur Barbiturates Screen Not Detected (Not Detect) Ur Phencyclidine Scrn Not Detected (Not Detect) Ur Amphetamines Screen Not Detected (Not Detect) U Benzodiazepines Scrn Not Detected (Not Detect) Urine Cocaine Screen Not Detected (Not Detect) U Marijuana (THC) Screen Not Detected (Not Detect) COVID-19 (MARY) Negative (Negative) COVID-19 Clin Com See Note Influenza Type A (TAYLOR) Negative (Negative) Influenza Type B (TAYLOR) Negative (Negative) Influenza A & B Note See Note Independent Interpretation I performed an independent interpretation of an: Plain X-Ray and CT Scan Radiology Impression Discussion of test interpretation with radiology: I have reviewed the radiologist's reading. Radiologist Impression: Streak artifact related to right-side embolization coil along the carotid terminus/MCA. Scattered subcortical and periventricular hypoattenuation, likely in keeping with chronic small vessel ischemic disease. Parenchymal volume loss with compensatory prominence of the ventricles and CSF spaces. No acute territorial infarction, intracranial hemorrhage, midline shift or hydrocephalus. 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 Mineralization in the basal ganglia noted. 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 The visualized paranasal sinuses and mastoid air cells are normal. The orbits are within normal limits. There is no acute fracture. Exaggeration of the cervical lordosis. Osteopenia. Multilevel spondylosis with osteophytosis, uncovertebral hypertrophy, facet arthropathy and degenerative disc disease. Diffuse spinal canal narrowing, for example moderate at C3-C4 with severe left foraminal stenoses. No acute fractures or dislocations. No acute findings on limited view of the intracranial contents. Multinodular thyroid gland largest in the left measuring 2.7 cm with scattered calcifications. This may be further evaluated with ultrasound. No consolidation or effusion at the lung apices. The lungs are clear. Prominent cardiac silhouette. No acute fracture. Critical Care Time Critical Care Time Critical Care Time: Yes Total Critical Care Time: 60 Attestation: I have personally provided critical care time. Time includes review of lab data, radiology results, discussion with consultants, and monitoring for potential decompensation. Intervention performed as documented. Discharge Plan Discharge Clinical Impression: Acute UTI, Encephalopathy, Weakness Patient Disposition: Admitted As Inpatient Print Language: Korean
--- OUTSIDE RECORDS SUMMARY | 2025-06-16 21:34 | XMS_ITS | Data Portability ---
Author Organization [facility], [facility] Address [address] [place] [address] Care Team Providers Care Civil Draftsman Name Role Phone HIM PARADISE OTHER Assessment [...] in the GB lumen recommend ed eval [email or web address] Not available 08/11/2024 20:38:23 Plan of Treatment Reminders Order Date Submit Date Provider Last Modified By Organization Details Last Modified Time Details Appointments None recorded. Lab None recorded. Referral None recorded. Procedures None recorded. Surgeries None recorded. Imaging None recorded. Medication Orders Bactrim DS 800 mg-160 mg tablet 024 024 NILES [id number], [address], [place], [id number], 4 15:11:17 Bactrim DS 800 mg-160 mg tablet 024 024 [email or web address] [id number], [address], [place], [phone], 4 15:11:10 Patient TargetsNo targets recorded. Patient InstructionsNo instructions recorded. Reason for Referral None Reported. Medical Equipment None Reported. Allergies Allergen ID Allergen Name Allergen Category Reaction Reaction Severity Criticality Documentation Date Start Date Code Code System Note Provider Name and Address Organization Details Recorded Time 98608 nitrofura ntoin medicatio n Not available Not available Not available 08/11/2024 7454 RxNorm Not Available [facility] 4 16:18:46 Medications Name Sig Start Date [...] Respiratory rate Body weight Body temperature Systolic And Diastolic Provider Name and Address Organization Details Last Updated DateTime 4 99 % 99 % 152.4 cm 55 /min 16 /min 37578.2 8 g 97.2 [degF] 159/62 mm[Hg] Not Available [facility] 4 14:57:11 Date Recorded Respiratory rate Heart rate Oxygen saturation Oxygen saturation in Arterial blood by Pulse oximetry Body temperature Systolic And Diastolic Provider Name and Address Organization Details Last Updated DateTime 4 16 /min 52 /min 99 % 99 % 98 [degF] 109/66 mm[Hg] Not Available [facility] - production 4 [...] Diagnosis SNOMED-CT Code Diagnosis ICD10 Code Diagnosis IMO Codes Diagnosis Note [id number] Jam Kaplan MD Main - [facility] [address] [place] [phone] 04/17/2024 14:46:09 04/17/2024 22:39:44 Cellulitis of lower limb 147417113 L03.119 Dark scar on right lower extremity [...] which to seek higher level of care. [id number] Manish Lacy MD Main - [facility] [address] [place] [phone] 08/11/2024 19:02:11 08/11/2024 21:13:26 Post-surgical wound care [id number] Z48.01 Health Concerns Section Related Observation LastModified by Organization Detai ls LastModified Time None Recorded Concern Status LastModified by Organization Details LastModified Time None Recorded Advance Directives Directive None Recorded Payers Insurance Date Sequence Insurance Name Policy Number Policy Cedillo Covered Member ID Cedillo Member ID Guarantor Name 06/16/2025 1 [facility] - DOS ON OR AFTER 2022 - DUAL ELIGIBLE - RETIREMENT OPTIONS AND ONE CARE (MEDICARE REPLACEMENT/ADV ANTAGE - HMO) Diana Scott [id number] Diana Scott Notes Date Note Type Note Provider Name and Address Organization Details Recorded Time 04/17/2024 text/html ROS as noted in the HPI HPI: Call returned to Diana Tyler to triage below. Spoke with daughter Neema. Per daughter pt having bilateral lower leg pain from the knee down that started after going in to [facility] for Dexa scan on 04/10. Having swelling and mild redness. Right more swollen than left. No CP or SOB. No swelling of hands or face. Pt taking all meds as prescribed including Furosemide. Swelling does not improve with elevation. Daughter declines WIC or ER. Wants [facility] to do in home eval for patient. Submitted to [facility] portal. Reviewed home care advise, ER precautions and reasons to call back. ..................... ..................... ..................... ..................... ..................... ..................... ............... CRC Nurse Triage Notes (Moseh Biswas): Chief Complaints: Edema PMH: Hypertension Other Allergies: Nitrofurantoin, seafood Comments: Reviewed HPI ..................... ..................... ..................... ..................... ..................... ..................... ............... Computing Services Director Note From Uvaldo Rabago: Dispatched for the 88 year old female cc bilateral leg pain/swelling. Patient found sitting on couch in living room with family member on scene. Wallisian speaking only. brazing furnace feeder called during patient visit. Patient complains of bilateral lower leg pain for 1 week. Patient reports unable to walk the past two days. Patient reports previous history of cellulitis. Patient denies chest pain, denies shortness, denies abdominal pain, denies n/v/d, denies recent fevers complains of 8/10 bilateral leg pain. Pictures taken of bilateral legs and placed on [facility] [employer] chart for physician. Patient has bilateral darken old scaly, leather like skin on lower legs with redness outside of the scaly skin. Bilateral edema, and warm to the touch. Small amount of old green crust on front right lower leg. Patient vitals obtained on scene. Patient repots allergies of PCN and seafood. Consulted with [facility] Dr. Kaplan with patient's complaints, symptoms and physical findings. Physician ordered one dose of Bactrim PO. Medication administered. Patient educated to take Tylenol/Ibuprofen for pain management. Patient advised Bactrim prescription at preferred pharmacy. Patient educated on antibiotic instructions. Patient advised of infection risk factors. ..................... ..................... ..................... ..................... ..................... ..................... ............... Disposition: Alfonso Kaplan MD [address] [place] [address],[address], [place], [phone], [employer] 04/17/2024 17:08:33 08/11/2024 text/html HPI: TC returned [...] verbalized understanding. Patient had an appointment with [facility] on 07/22/24 and per OV note: 81-year-old [...] removal. Son reports they did NOT call [facility] to report concerns regarding cholecystostomy tube. Son aware [facility] to [facility] the patient today. Son to f/u PRN. ..................... ..................... ..................... ..................... ..................... ..................... ............... CRC Nurse Triage Notes (Candida Main - RN): Chief Complaints: Wound care PMH: Hypertension, Asthma, Osteoarthritis Comments: HPI reviewed Allergy to seafood ..................... ..................... ..................... ..................... ..................... ..................... ............... Computing Services Director Note From Aleksandar Marquez: This visit is [...] no erythema or drainage. No lower extremity edema.[facility] consulted and recommends the patient go back to [facility] for evaluation. Patient and family are agreeable for ambulance transport. 911 initiated and a verbal SBAR was given to Julio GARCIA. The patient and the family were given the opportunity to ask questions and are agreeable to this plan. ..................... ..................... ..................... ..................... ..................... ..................... ............... [facility] Consulted: Manish Lacy ..................... ..................... ..................... ..................... ..................... ..................... ............... Disposition: Fulfilled Manish Lacy MD [address] [facility] [address] [facility],[address], [place], [phone], [employer], [employer] 08/11/2024 20:39:42 OBGyn Episode No OBEpisode recorded.
--- OUTSIDE RECORDS SUMMARY | 2025-06-16 21:34 | XMS_ITS | Clinical Summary ---
Author Organization [facility] Address [address] [place] [address] Care Team Providers Care Contracts Officer Name Role Phone Unavailable Primary Care Provider Unavailabl e Social History Tobacco Use Types Packs/Day Years Used Date Smoking Tobacco: Never Assessed Comments Unknown Sex and Gender Information Value Date Recorded Sex Assigned at Not on file Legal Sex Female 12:19 PM EDT Gender Identity Not on file Sexual Orientation Not on file Plan of Treatment Health Maintenance Due Date Last Done Comments Advance Care Planning 1935 DTaP/Tdap/Td Vaccines (1 - Tdap) 1955 Pneumococcal Vaccines 50+ (1 of 1 - PCV) 1986 Zoster (Shingles) Vaccine (1 of 2) 1986 RSV Vaccine 50 years and old er and Patients (1 - 1-dose 75+ series) 2011 COVID-19 Vaccine (2023-2 5 season) 2025 Hepatitis B Vaccines Aged Out No long er eligible based on patient's age to complete this topic
[2025-06-16 21:35] VITALS: BP 140/56; PULSE 76; RESP 18; TEMP 37.4; O2SAT 97
[2025-06-16 21:36] LABS: Appearance Urine Clear; Glucose Urine UA Negative (Negative); PH 6.0 (5.0-9.0); Specific Gravity - Urine 1.010 (1.005-1.025); UMIC TRIGGER UACC YES
[2025-06-16 21:39] LABS: UACC Culture Trigger YES
[2025-06-16 21:46] LABS: Cannabinoid Screen Urine Not Detected (Not Detect)
[2025-06-16 22:15] VITALS: BP 152/49; PULSE 74; RESP 16; TEMP 37; O2SAT 100
[2025-06-17] VITALS (8 sets, daily range): BP systolic 115–158; BP diastolic 44–66; PULSE 59–87; RESP 16–19; TEMP 35.7–37.1; O2SAT 97–99; BMI 32.4
--- NOTE | 2025-06-17 00:32 | PM.IMHP ---
History of Present Illness Date of Service: 06/17/25 Chief Complaint: Generalized weakness/confusion 89-year-old female with a past medical history of HTN, HLD, asthma, CKD, HX subarachnoid hematoma, overactive bladder, multinodular goiter, history of aortic aneurysm status post repair; presented to the hospital today with a chief complaint of altered mental status. Patient is pleasantly confused. Most of the history obtained from the records and the staff. Reportedly patient has been confused over a week. Has been talking to relatives. Over the past couple days patient appeared to be more weak and tired. Has been having decreased appetite. Denies having any fevers. Denies patient complaining of any pain. Patient family also mentioned that patient had a fall few days ago while she was trying to kneel and pray. Denies any loss of consciousness. Review of all other systems is limited. ER course: Per ER team, patient's exam was grossly nonfocal; benign abdominal examination; CT of the head showed no acute intracranial process. Labs abnormal consistent with UTI. Given ceftriaxone. [facility] Medical History Subarachnoid hem w/o coma CKD (chronic kidney disease) stage 3, GFR 30-59 ml/min Asthma Abnormal thyroid biopsy Non-toxic multinodular goiter HLD (hyperlipidemia) HTN (hypertension) Overactive bladder Family History Father No problems noted. Mother No problems noted. Surgical History H/O insertion of cholecystostomy tube History of aortic aneurysm repair History of cataract extraction Social History Household Members: Unknown / Unable to assess Household Members Other:: Daughter [phone] Neema, Son [phone], Bill Housing: Unknown / Unable to assess Unable to assess alcohol history related to: Unable to respond Alcohol intake: never Patient Tobacco Use Status: Never used Tobacco Second Hand Smoke Exposure: No Advance Directives: No Advance Directives Information Provided: Yes service: No Meds Allergies Allergy/AdvReac Type Severity Reaction Status Date / Time Fish Containing Products Allergy Mild RASH Verified 06/16/25 18:39 Penicillins Allergy Mild RASH Verified 06/16/25 18:39 seafood Allergy Mild Rash Uncoded 06/16/25 18:39 Home Medications ?Medication ?Instructions ?Recorded ?Confirmed ?Last Taken ?Type furosemide 40 mg tablet 1 tab PO BID@0700,1400 06/26/20 07/22/24 Unknown History lisinopril 40 mg tablet 40 mg PO DAILY 06/26/20 07/22/24 Unknown History mirabegron 25 mg tablet,extended 25 mg PO DAILY 06/26/20 07/22/24 Unknown History release 24 hr (Myrbetriq) peg [id number] 1 1 drp ophthalmic (eye) BID dry eyes 06/26/20 07/22/24 Unknown History %-0.2 %-0.2 % eye drops (Artificial Tears ([id number])) atorvastatin 20 mg tablet 20 mg PO DAILY 01/12/21 07/22/24 Unknown History Held on 06/06/24. Instructions: Resume on 06/13/24. calcium 500 mg (as 1 tab PO DAILY 01/12/21 07/22/24 Unknown History carbonate)-vitamin D3 5 mcg (200 unit) tablet diltiazem HCl 360 mg 360 mg PO DAILY 01/12/21 07/22/24 Unknown History capsule,extended release 24 hr albuterol sulfate 90 mcg/actuation 2 inh inhalation Q6H PRN Shortness 06/02/24 07/22/24 Unknown History aerosol inhaler (Ventolin HFA) Of Breath Or Wheezing ergocalciferol (vitamin D2) 1,250 1,250 mcg PO FR 06/02/24 07/22/24 Unknown History mcg (50,000 unit) capsule levetiracetam 500 mg tablet 500 mg PO BID 06/02/24 07/22/24 Unknown History risedronate 35 mg tablet 35 mg PO FR 06/02/24 07/22/24 Unknown History Physical Exam Vital Signs and Narrative: Vital Signs: Last Vital Signs Temp 98.6 F 06/16/25 22:15 Pulse 74 06/16/25 22:15 Resp 16 06/16/25 22:15 BP 152/49 H 06/16/25 22:15 Pulse Ox 100 06/16/25 22:15 O2 Del Method Room Air 06/16/25 22:15 BMI result Body Mass Index 32.4 Gen: Appears be in no acute distress HEENT: NCAT, Moist mucosa. Pulmonary: Vesicular breath sounds, fair air entry CVS: Normal S1-S2 Abdomen: BS+, Soft, Nontender Extremities: Warm well perfused Neuro: Alert and awake. Results Labs 06/17/25 04:44 06/17/25 04:44 Labs: Laboratory Results - last 24 hr 06/16/25 06/16/25 06/16/25 18:53 19:18 21:29 MCV 88.4 MCH 29.7 MCHC 33.6 RDW 14.1 Plt Count 263 D MPV 10.8 Immature Gran % (Auto) 0.3 Neut % (Auto) 47.7 Lymph % (Auto) 40.8 H [place] % (Auto) 8.1 Eos % (Auto) 2.4 Baso % (Auto) 0.7 Lymph # (Auto) 2.9 [place] # (Auto) 0.6 Eos # (Auto) 0.2 Baso # (Auto) 0.1 Abs Immat Gran (auto) 0.02 Absolute Neuts (auto) 3.4 Absolute Nucleated RBC 0.000 Nucleated RBC % (auto) 0.0 Anion Gap 10 L Estim Creat Clear Calc 35.4 Estimated GFR 44 Random Glucose 105 Lactic Acid 1.5 Calcium 9.7 D Magnesium 2.3 Total Bilirubin 0.4 AST 63 H ALT 25 Alkaline Phosphatase 84 Troponin I High Sens 12.8 D Total Protein 7.7 Albumin 4.0 Urine Color Yellow Urine Appearance Clear Urine pH 6.0 Ur Specific [place] 1.010 Urine Protein Negative Urine Glucose (UA) Negative Urine Ketones Negative Urine Blood Negative Urine Nitrite Positive H Ur Leukocyte Esterase Small (1+) H Urine RBC 0-2 Urine WBC 11-20 H Ur Squamous Epith Cells 0-2 Urine Bacteria 2+ Hyaline Casts 0-2 Urine Opiates Screen Not Detected Ur Buprenorphine Scrn Not Detected Ur Oxycodone Screen Not Detected Urine Methadone Screen Not Detected Urine Fentanyl Screen Not Detected Ur Barbiturates Screen Not Detected Ur Phencyclidine Scrn Not Detected Ur Amphetamines Screen Not Detected U Benzodiazepines Scrn Not Detected Urine Cocaine Screen Not Detected U Marijuana (THC) Screen Not Detected COVID-19 (MARY) Negative COVID-19 Clin Com See Note Influenza Type A (TAYLOR) Negative Influenza Type B (TAYLOR) Negative Influenza A & B Note See Note Assessment and Plan (1) Acute UTI: Status: Acute Plan 89-year-old female with a past medical history of HTN, HLD, asthma, CKD, HX subarachnoid hematoma, overactive bladder, multinodular goiter, history of aortic aneurysm status post repair; presented to the hospital today with a chief complaint of altered mental status. Altered mental status: Toxic metabolic encephalopathy: UTI: Continue ceftriaxone Follow-up cultures Supportive care Aspiration precautions INSURANCE REPRESENTATIVE evaluation Fall precautions P.T./OT when ready for discharge CKD: Creatinine at baseline Hypertension: Continue home lisinopril, diltiazem Seizures: Continue home Keppra Med reconciliation: Pharmacy to confirm patient's home medications and resume accordingly DVT prophylaxis: Subcu heparin Code status: Full code Quality Stroke Does the patient have a stroke diagnosis?: Yes Reason for No Anti-thrombotic by Day Two: N/A - Med Ordered VTE Prior VTE?: No VTE Risk Level:: Medical - moderate - high VTE Device Contraindication: Treatment Not Indicated VTE Drug Contraindication: N/A - Med Ordered
[2025-06-17 05:08] LABS: MANUAL DIFF FLAG NO
[2025-06-17 05:13] LABS: Hematocrit 38.6 % (37.0-47.0); Hemoglobin 12.7 g/dl (12.0-16.0); Imm Gran Abs Auto 0.02 X10*3/uL (0.00-0.03); Imm Gran Pct Auto 0.3 % (0.0-0.4); Lymphocytes Absolute Auto 2.1 X10*3/uL (1.2-4.9); Mean Corpuscular HGB Conc 32.9 g/dl (31.0-35.0); Mean Corpuscular Hemoglobin 29.3 pg (27.0-33.0); Mean Corpuscular Volume 89.1 fL (80.0-98.0); NRBC Abs Auto 0.000 X10*3/uL (0.0-0.012); NRBC Pct Auto 0.0 /100WBC (0.0-0.2); Platelet Count 227 X10*3/uL (160-400); Red Blood Count 4.33 X10*6/uL (4.20-5.50); White Blood Count 6.7 X10*3/uL (4.8-10.8)
[2025-06-17 05:31] LABS: Alanine Aminotransferase 20 U/L (0-31); Albumin Level 3.5 g/dL (3.5-5.0); Alkaline Phosphatase 70 U/L (39-117); Anion Gap 11 (12-20); Aspartate Amino Transferase 52 U/L (5-31); Blood Urea Nitrogen 20 mg/dL (9-16); Calcium 8.8 mg/dL (8.4-10.2); Carbon Dioxide 27 mmol/L (22-29); Chloride 110 mmol/L (96-108); Creatinine Clr Calc Pharmacy 41.6; Estimated Glomerular Filt Rate 53; Potassium 4.2 mmol/L (3.3-5.1); Sodium 144 mmol/L (135-145); Total Protein 7.0 g/dL (6.5-8.0)
[2025-06-17] MEDS: dilTIAZem HCL SR 90 MG CAP.ER.12H 180 MG PO ×2 (08:52→20:56)
[2025-06-17] MEDS: 0.9 % Sodium Chloride Flush 3 ML SYRINGE IVFLUSH ×2 (08:54→20:58)
--- NOTE | 2025-06-17 10:02 | P.PNIM_ITS ---
Subjective Subjective Date of Service: 06/17/25 Interval History: This history was taken in Malay from the patient. Pleasantly confused, denies any complaints, OK for NDD3 solids/thin liquids per [employer] Review of Systems Review of Systems: Yes all other systems are reviewed and are negative Physical Exam 2 Vital Signs: Vital Signs: Last Vital Signs Temp 98.8 F 06/17/25 08:36 Pulse 81 06/17/25 08:52 Resp 17 06/17/25 08:36 BP 158/62 H 06/17/25 08:52 Pulse Ox 98 06/17/25 08:36 O2 Del Method Room Air 06/17/25 08:36 BMI result Body Mass Index 32.4 Gen: in no acute distress HEENT: sclera anicteric, moist mucus membranes Neck: supple Lungs: clear to auscultation bilaterally Heart: regular rate and rhythm, no murmurs Abd: soft, non-tender, non-distended Ext: no edema Skin: warm/well-perfused Neuro: alert and oriented to self only, no focal findings Psych: appropriate affect Objective Data Active Medications Acetaminophen (Acetaminophen 325 Mg Tablet) 650 mg PO Q6H PRN PRN Reason: Pain, Mild 1-3,fever,headache Calcium Carbonate (Calcium Carbonate 750 Mg Tab.Chew) 750 mg PO Q4H PRN PRN Reason: Heartburn Ceftriaxone Sodium (Ceftriaxone Sodium 1 Gm Vial) 1 gm IVPUSH Q24H [facility] Diltiazem HCl (Diltiazem Hcl Sr 90 Mg Cap.Er.12h) 180 mg PO BID [facility]; Protocol Last Admin: 06/17/25 08:52 Dose: 180 mg Documented By: NATO Heparin Sodium (Porcine) (Heparin Sodium,Porcine 5,000 Unit/Ml Vial) 5,000 unit SUBCUT Q12H [facility] Last Admin: 06/17/25 02:08 Dose: 5,000 unit Documented By: BENTLEY Levetiracetam (Levetiracetam 500 Mg Tablet) 500 mg PO BID [facility] Last Admin: 06/17/25 08:51 Dose: 500 mg Documented By: NATO Lisinopril (Lisinopril 40 Mg Tablet) 40 mg PO DAILY [facility]; Protocol Last Admin: 06/17/25 08:52 Dose: 40 mg Documented By: NATO Magnesium Hydroxide (Milk Of Magnesia 30 Ml Oral.Susp) 30 ml PO DAILY PRN PRN Reason: Constipation Melatonin (Melatonin 3 Mg Tablet) 6 mg PO BEDTIME PRN PRN Reason: Insomnia Mirabegron (Mirabegron 25 Mg Tab.Er.24h) 25 mg PO DAILY [facility] Last Admin: 06/17/25 08:53 Dose: 25 mg Documented By: NATO Sodium Chloride (0.9 % Sodium Chloride Flush 3 Ml Syringe) 3 ml IVFLUSH QSHIFT [facility] Last Admin: 06/17/25 08:54 Dose: 3 ml Documented By: NATO Labs 06/17/25 04:44 06/17/25 04:44 Labs: Laboratory Results - last 24 hr 06/16/25 06/16/25 06/16/25 18:53 19:18 21:29 MCV 88.4 MCH 29.7 MCHC 33.6 RDW 14.1 Plt Count 263 D MPV 10.8 Immature Gran % (Auto) 0.3 Neut % (Auto) 47.7 Lymph % (Auto) 40.8 H [place] % (Auto) 8.1 Eos % (Auto) 2.4 Baso % (Auto) 0.7 Lymph # (Auto) 2.9 [place] # (Auto) 0.6 Eos # (Auto) 0.2 Baso # (Auto) 0.1 Abs Immat Gran (auto) 0.02 Absolute Neuts (auto) 3.4 Absolute Nucleated RBC 0.000 Nucleated RBC % (auto) 0.0 Anion Gap 10 L Estim Creat Clear Calc 35.4 Estimated GFR 44 Random Glucose 105 Lactic Acid 1.5 Calcium 9.7 D Magnesium 2.3 Total Bilirubin 0.4 AST 63 H ALT 25 Alkaline Phosphatase 84 Troponin I High Sens 12.8 D Total Protein 7.7 Albumin 4.0 Urine Color Yellow Urine Appearance Clear Urine pH 6.0 Ur Specific [place] 1.010 Urine Protein Negative Urine Glucose (UA) Negative Urine Ketones Negative Urine Blood Negative Urine Nitrite Positive H Ur Leukocyte Esterase Small (1+) H Urine RBC 0-2 Urine WBC 11-20 H Ur Squamous Epith Cells 0-2 Urine Bacteria 2+ Hyaline Casts 0-2 Urine Opiates Screen Not Detected Ur Buprenorphine Scrn Not Detected Ur Oxycodone Screen Not Detected Urine Methadone Screen Not Detected Urine Fentanyl Screen Not Detected Ur Barbiturates Screen Not Detected Ur Phencyclidine Scrn Not Detected Ur Amphetamines Screen Not Detected U Benzodiazepines Scrn Not Detected Urine Cocaine Screen Not Detected U Marijuana (THC) Screen Not Detected COVID-19 (MARY) Negative COVID-19 Clin Com See Note Influenza Type A (TAYLOR) Negative Influenza Type B (TAYLOR) Negative Influenza A & B Note See Note 06/17/25 04:44 MCV 89.1 MCH 29.3 MCHC 32.9 RDW 13.8 Plt Count 227 MPV 11.3 Immature Gran % (Auto) 0.3 Neut % (Auto) 56.0 Lymph % (Auto) 30.7 [place] % (Auto) 10.3 Eos % (Auto) 2.1 Baso % (Auto) 0.6 Lymph # (Auto) 2.1 [place] # (Auto) 0.7 Eos # (Auto) 0.1 Baso # (Auto) 0.0 Abs Immat Gran (auto) 0.02 Absolute Neuts (auto) 3.7 Absolute Nucleated RBC 0.000 Nucleated RBC % (auto) 0.0 Anion Gap 11 L Estim Creat Clear Calc 41.6 Estimated GFR 53 Random Glucose 87 Lactic Acid Calcium 8.8 D Magnesium Total Bilirubin 0.4 AST 52 H ALT 20 Alkaline Phosphatase 70 Troponin I High Sens Total Protein 7.0 Albumin 3.5 Urine Color Urine Appearance Urine pH Ur Specific [place] Urine Protein Urine Glucose (UA) Urine Ketones Urine Blood Urine Nitrite Ur Leukocyte Esterase Urine RBC Urine WBC Ur Squamous Epith Cells Urine Bacteria Hyaline Casts Urine Opiates Screen Ur Buprenorphine Scrn Ur Oxycodone Screen Urine Methadone Screen Urine Fentanyl Screen Ur Barbiturates Screen Ur Phencyclidine Scrn Ur Amphetamines Screen U Benzodiazepines Scrn Urine Cocaine Screen U Marijuana (THC) Screen COVID-19 (MARY) COVID-19 Clin Com Influenza Type A (TAYLOR) Influenza Type B (TAYLOR) Influenza A & B Note Assessment and Plan (1) Acute UTI: Status: Acute Plan d2, 89yo F with HTN, HLD, asthma, CKD3, hx SAH, OAB, MNG, hx AAA s/p repair; presenting with AMS; admitted for encephalopathy due to UTI UTI: ceftriaxone 06/16-, follow BCx + UCx acute encephalopathy due to infection: treat as above CKD3: SCr baseline HTN: lisinopril, diltiazem seizures: levetiracetam OAB: mirabegron VTE ppx: enoxaparin dispo: TBD, PT eval In my clinical judgment, the patient requires continued inpatient hospitalization for the following reasons: IV ABX Total time managing care of this patient today: 35 minutes. Quality Stroke Does the patient have a stroke diagnosis?: Yes Reason for No Anti-thrombotic by Day Two: N/A - Med Ordered VTE Prior VTE?: No VTE Risk Level:: Medical - moderate - high VTE Device Contraindication: Treatment Not Indicated VTE Drug Contraindication: N/A - Med Ordered
--- NOTE | 2025-06-17 11:28 | MHC.SL.SWA ---
Speech Pathologist Impression: Mild dysphagia Risk of Aspiration Due to: Weakness Dysphasia Diet Status: [facility] NDD3 (chopped) and THIN liquids, aspiration precautions, assist with tray set up, intermittent supervision, meds with liquid or in puree Liquid Consistency and Strategies for Safe Swallow: Liquid Intake Recommendation: Thin Liquid Intake Strategies: Solid Food Consistency: Dietary Recommendations: Chopped/Advanced (NDD3) Additional Modifications to Solid Foods: Oral Medication Intake: Whole with Liquid Please contact the pharmacy regarding appropriate crushable or liquid drug formulations that are available whenever modified delivery is recommended. Compensatory Strategies and Precautions to be Taken for Safe Swallow: Supervision While Eating and Drinking for Safe Swallow: Tray Set Up Foods to Avoid: Swallowing Recommended Treatments: Recommendation for Speech: Inpatient Speech Therapy Comment: 06/17 Pt alert to task, followed simple cues. RNs at bedside, noting pt tolerated thin liquids/broth today without difficulty. Oromotor exam WNL, pt has some natural dentition. Mild mandibular tremor evident during speech but intelligibility WFL. Pt tolerated thins, soft solids without overt s/s of aspiration, feeding herself with slow pacing. MD and RN notified of findings. [facility] NDD3 with thins, assist with set-up, intermittent supervision. Frequency/Duration: Daily M-F Date Range for Service Req: Timeline to reassess: Transfer Controller Clinican/Clinical Fellow: No Supervisory Statement: I have reviewed and agree with the student/clinical fellow's documentation: N/A Speech Language Pathologist: Edilma Lindsey M.S., CCC-OCCUPATIONAL THERAPY ASST
--- NOTE | 2025-06-17 11:56 | PHA.MEDREC ---
Addendum entered by Apolinar Copeland [facility] 06/17/25 12:53: MED REC REVIEWED BY [facility] Addendum entered by Antonina Roy 06/17/25 12:02: Family confirmed patient takes Furosemide 40 daily NOT BID as claims states. Original Note: Pharmacy Consult ? Medication Reconciliation Pharmacy has completed the medication reconciliation Spoke to patient Family (son?) at bedside through landfill gas plant field technician service to confirm med list. Family states patient is no longer taking Artificial tears , Calcium with vitamin d, Nystatin and Risedronate 35 mg. Family confirmed Vitamin D2 1,250 mcg every Sunday, last dose 06/13/25. Patient last had her medications yesterday.
--- NOTE | 2025-06-17 12:18 | MHC.CM.PN ---
Addendum entered by Rupa Cano 06/17/25 13:42: Patient is part of the [facility] Foster [facility]. Original Note: CM met with Patient and her Son at bedside, in the ED and addressed IMM with them, providing Patient with the original and a copy will be placed on the chart. Per [facility] Machine Operator Picker, Patient preferred Son to respond to questions. Patient lives in a 2nd floor apartment with her Son/HCP/LINOLEUM LAYER/Bill and she uses a w/c for mobility. Home/resume [facility] is the goal and CM has initiated and will follow for dc planning. PCP is Dr. Roslyn Rodriguez and Patient will need BLS transport at dc.
--- NOTE | 2025-06-17 14:57 | PC.NURSE ---
report given to overflow
--- NOTE | 2025-06-17 17:00 | HO.NURTONUR ---
89 yo F presented to ED last night following x2 days of not acting to baseline per family, not wanting to get out of bed and speaking to relatives . Pt confused on arrival, oriented to person and place; not time. +UTI on straight cath, on Ceftriaxone @ 2200 Cleared for regular diet from Speech. Pills whole with water. Pt awake and more alert per family. VSS. Afebrile. [place]wick in place. 2 PIV's. Family at beside. Malagasy speaking only
[2025-06-17] MEDS: Flu Vacc TS2025-26(6mo up)/PF 0.5 ML SYRINGE IM (20:56)
[2025-06-18 03:42] VITALS: BP 128/61; PULSE 59; RESP 18; TEMP 36; O2SAT 96
[2025-06-18 07:35] VITALS: BP 151/68; PULSE 65; RESP 14; TEMP 36.3; O2SAT 98
[2025-06-18] MEDS: 0.9 % Sodium Chloride Flush 3 ML SYRINGE IVFLUSH ×3 (09:32→20:28)
[2025-06-18 09:38] VITALS: BP 180/73; PULSE 71; RESP 18; O2SAT 98
--- NOTE | 2025-06-18 10:36 | HO.PM.IMPN ---
Subjective Subjective Date of Service: 06/18/25 Interval History: This history was taken in Maltese from the patient. No complaints, eating breakfast, no pain Review of Systems Review of Systems: Yes all other systems are reviewed and are negative Physical Exam Vital Signs: Vital Signs: Last Vital Signs Temp 97.3 F 06/18/25 07:35 Pulse 71 06/18/25 09:38 Resp 18 06/18/25 09:38 BP 180/73 H 06/18/25 09:38 Pulse Ox 98 06/18/25 09:38 O2 Del Method Room Air 06/18/25 09:38 BMI result Body Mass Index 32.4 Gen: in no acute distress HEENT: sclera anicteric, moist mucus membranes Neck: supple Lungs: clear to auscultation bilaterally Heart: regular rate and rhythm, no murmurs Abd: soft, non-tender, non-distended Ext: no edema Skin: warm/well-perfused Neuro: alert and oriented to self only, no focal findings Psych: appropriate affect Objective Data Active Medications Acetaminophen (Acetaminophen 325 Mg Tablet) 650 mg PO Q6H PRN PRN Reason: Pain, Mild 1-3,fever,headache Albuterol Sulfate (Albuterol Sulfate 90 Mcg 8 Gm Inhaler) 2 puff INHALE Q6H PRN PRN Reason: Shortness Of Breath Or Wheezing Atorvastatin Calcium (Atorvastatin Calcium 20 Mg Tablet) 20 mg PO DAILY [facility] Last Admin: 06/18/25 09:51 Dose: Not Given Documented By: EBONY Non-Admin Reason: Patient Refused Calcium Carbonate (Calcium Carbonate 750 Mg Tab.Chew) 750 mg PO Q4H PRN PRN Reason: Heartburn Ceftriaxone Sodium (Ceftriaxone Sodium 1 Gm Vial) 1 gm IVPUSH Q24H [facility] Last Admin: 06/17/25 20:57 Dose: 1 gm Documented By: TYSON Diltiazem HCl (Diltiazem Hcl Sr 90 Mg Cap.Er.12h) 180 mg PO BID [facility]; Protocol Last Admin: 06/18/25 09:51 Dose: Not Given Documented By: EBONY Non-Admin Reason: Patient Refused Enoxaparin Sodium (Enoxaparin Sodium 40 Mg/0.4 Ml Syringe) 40 mg SUBCUT Q24H [facility] Last Admin: 06/18/25 09:32 Dose: 40 mg Documented By: EBONY Ergocalciferol (Ergocalciferol (Vitamin D2) 1,250 Mcg Capsule) 1,250 mcg PO [facility] Levetiracetam (Levetiracetam 500 Mg Tablet) 500 mg PO BID [facility] Last Admin: 06/18/25 09:51 Dose: Not Given Documented By: EBONY Non-Admin Reason: Patient Refused Lisinopril (Lisinopril 40 Mg Tablet) 40 mg PO DAILY [facility]; Protocol Last Admin: 06/18/25 09:51 Dose: Not Given Documented By: EBONY Non-Admin Reason: Patient Refused Magnesium Hydroxide (Milk Of Magnesia 30 Ml Oral.Susp) 30 ml PO DAILY PRN PRN Reason: Constipation Melatonin (Melatonin 3 Mg Tablet) 6 mg PO BEDTIME PRN PRN Reason: Insomnia Last Admin: 06/17/25 20:56 Dose: 6 mg Documented By: BUSSIDIMAS Mirabegron (Mirabegron 25 Mg Tab.Er.24h) 25 mg PO DAILY [facility] Last Admin: 06/18/25 09:52 Dose: Not Given Documented By: EBONY Non-Admin Reason: Patient Refused Sodium Chloride (0.9 % Sodium Chloride Flush 3 Ml Syringe) 3 ml IVFLUSH QSHIFT [facility] Last Admin: 06/18/25 09:32 Dose: 3 ml Documented By: EBONY Labs 06/17/25 04:44 06/17/25 04:44 Microbiology Microbiology Results: Microbiology 06/16/25 19:18 Blood Culture - Preliminary Blood - Venous No growth after 24 hours. 06/16/25 18:53 Blood Culture - Preliminary Blood - Venous No growth after 24 hours. 06/16/25 Unknown Urine Culture - Preliminary Urine Catheterized - Straight Catheter Culture in progress. Assessment and Plan (1) Acute UTI: Status: Acute Plan 32, 89yo F with HTN, HLD, asthma, CKD3, hx SAH, OAB, MNG, hx AAA s/p repair; presenting with AMS; admitted for encephalopathy due to UTI UTI: ceftriaxone 06/16-, follow BCx + UCx acute encephalopathy due to infection: treat as above, improving CKD3: SCr baseline HTN: lisinopril, diltiazem seizures: levetiracetam OAB: mirabegron VTE ppx: enoxaparin dispo: STR per PT In my clinical judgment, the patient requires continued inpatient hospitalization for the following reasons: IV ABX Total time managing care of this patient today: 35 minutes. Quality Stroke Does the patient have a stroke diagnosis?: Yes Reason for No Anti-thrombotic by Day Two: N/A - Med Ordered VTE Prior VTE?: No VTE Risk Level:: Medical - moderate - high VTE Device Contraindication: Treatment Not Indicated VTE Drug Contraindication: N/A - Med Ordered
[2025-06-18 15:01] VITALS: BP 145/79; PULSE 85; RESP 18; TEMP 36; O2SAT 98
--- NOTE | 2025-06-18 16:57 | MHC.SLORD ---
Speech Language Pathology Order Status: Patient sleeping soundly at time of TRACK REPAIR LABORER visit at lunch. present, preferred patient be allowed to sleep. reported patient is tolerating current diet well (communciated with in Hebrew). He reported patient was on regular diet at baseline. TRACK REPAIR LABORER will continue to follow.
--- NOTE | 2025-06-18 18:33 | PC.NURSE ---
Pt confused, hallucinating and pointing to the wall and whispering. Spit out AM meds. Refused breakfast, ate less than 25% of lunch. Dr. Sera dotson.
[2025-06-18 19:38] VITALS: BP 152/66; PULSE 78; RESP 18; TEMP 35.9; O2SAT 97
[2025-06-18] MEDS: dilTIAZem HCL SR 90 MG CAP.ER.12H 180 MG PO (20:26)
[2025-06-18] MEDS: levETIRAcetam Oral Soln 500 MG/5 ML PO (20:32)
[2025-06-19 03:46] VITALS: BP 160/48; PULSE 80; RESP 18; TEMP 36.1; O2SAT 96
[2025-06-19] MEDS: levETIRAcetam Oral Soln 500 MG/5 ML PO ×2 (11:21→21:21)
[2025-06-19] MEDS: dilTIAZem HCL SR 90 MG CAP.ER.12H 180 MG PO ×2 (11:21→21:22)
[2025-06-19] MEDS: 0.9 % Sodium Chloride Flush 3 ML SYRINGE IVFLUSH ×3 (11:22→22:50)
--- NOTE | 2025-06-19 11:24 | HO.PM.IMPN ---
Subjective Subjective Date of Service: 06/19/25 Interval History: refusing exam today, denies complaints but history limited by dementia This history was taken in Romansh from the patient. Review of Systems Review of Systems: Yes Unobtainable due to mental status Physical Exam Vital Signs: Vital Signs: Last Vital Signs Temp 96.9 F 06/19/25 03:46 Pulse 80 06/19/25 03:46 Resp 18 06/19/25 03:46 BP 160/48 H 06/19/25 03:46 Pulse Ox 96 06/19/25 03:46 O2 Del Method Room Air 06/19/25 03:46 BMI result Body Mass Index 32.4 gen: NAD neuro: oriented to self only refused rest of exam Objective Data Active Medications Acetaminophen (Acetaminophen 325 Mg Tablet) 650 mg PO Q6H PRN PRN Reason: Pain, Mild 1-3,fever,headache Albuterol Sulfate (Albuterol Sulfate 90 Mcg 8 Gm Inhaler) 2 puff INHALE Q6H PRN PRN Reason: Shortness Of Breath Or Wheezing Atorvastatin Calcium (Atorvastatin Calcium 20 Mg Tablet) 20 mg PO DAILY [facility] Last Admin: 06/18/25 09:51 Dose: Not Given Documented By: EBONY Non-Admin Reason: Patient Refused Calcium Carbonate (Calcium Carbonate 750 Mg Tab.Chew) 750 mg PO Q4H PRN PRN Reason: Heartburn Ceftriaxone Sodium (Ceftriaxone Sodium 1 Gm Vial) 1 gm IVPUSH Q24H [facility] Last Admin: 06/18/25 21:50 Dose: 1 gm Documented By: POP Diltiazem HCl (Diltiazem Hcl Sr 90 Mg Cap.Er.12h) 180 mg PO BID [facility]; Protocol Last Admin: 06/18/25 20:26 Dose: 180 mg Documented By: POP Enoxaparin Sodium (Enoxaparin Sodium 40 Mg/0.4 Ml Syringe) 40 mg SUBCUT Q24H [facility] Last Admin: 06/18/25 09:32 Dose: 40 mg Documented By: EBONY Ergocalciferol (Ergocalciferol (Vitamin D2) 1,250 Mcg Capsule) 1,250 mcg PO [facility] Levetiracetam (Levetiracetam Oral Soln 500 Mg/5 Ml) 500 mg PO BID [facility] Last Admin: 06/18/25 20:32 Dose: 500 mg Documented By: POP Lisinopril (Lisinopril 40 Mg Tablet) 40 mg PO DAILY [facility]; Protocol Last Admin: 06/18/25 09:51 Dose: Not Given Documented By: EBONY Non-Admin Reason: Patient Refused Magnesium Hydroxide (Milk Of Magnesia 30 Ml Oral.Susp) 30 ml PO DAILY PRN PRN Reason: Constipation Melatonin (Melatonin 3 Mg Tablet) 6 mg PO BEDTIME PRN PRN Reason: Insomnia Last Admin: 06/17/25 20:56 Dose: 6 mg Documented By: TYOSN Mirabegron (Mirabegron 25 Mg Tab.Er.24h) 25 mg PO DAILY [facility] Last Admin: 06/18/25 09:52 Dose: Not Given Documented By: EBONY Non-Admin Reason: Patient Refused Sodium Chloride (0.9 % Sodium Chloride Flush 3 Ml Syringe) 3 ml IVFLUSH QSHIFT [facility] Last Admin: 06/18/25 20:28 Dose: 3 ml Documented By: POP Labs 06/17/25 04:44 06/17/25 04:44 Microbiology Microbiology Results: Microbiology 06/16/25 19:18 Blood Culture - Preliminary Blood - Venous No growth after 48 hours. 06/16/25 18:53 Blood Culture - Preliminary Blood - Venous No growth after 48 hours. 06/16/25 Unknown Urine Culture - Final Urine Catheterized - Straight Catheter Assessment and Plan (1) Acute UTI: Status: Acute Plan d3, 89yo F with HTN, HLD, asthma, CKD3, hx SAH, OAB, MNG, hx AAA s/p repair; presenting with AMS; admitted for encephalopathy due to UTI UTI: ceftriaxone , BCx negative, UCx contaminated, change to cefdinir 06/18-06/23 acute encephalopathy due to infection: treat as above, improving CKD3: SCr baseline HTN: lisinopril, diltiazem seizures: levetiracetam OAB: mirabegron VTE ppx: enoxaparin dispo: STR per PT In my clinical judgment, the patient requires continued inpatient hospitalization for the following reasons: placement Total time managing care of this patient today: 35 minutes. Quality Stroke Does the patient have a stroke diagnosis?: Yes Reason for No Anti-thrombotic by Day Two: N/A - Med Ordered VTE Prior VTE?: No VTE Risk Level:: Medical - moderate - high VTE Device Contraindication: Treatment Not Indicated VTE Drug Contraindication: N/A - Med Ordered
[2025-06-19 11:33] VITALS: BP 174/72; PULSE 85; RESP 20
[2025-06-19 14:47] VITALS: BP 172/71; PULSE 106; O2SAT 98
[2025-06-19 16:00] VITALS: BP 136/60; PULSE 97; RESP 18; TEMP 37.2; O2SAT 98
--- NOTE | 2025-06-19 17:30 | MHC.SL.SWA ---
Speech Pathologist Impression: Risk of Aspiration, Oropharyngeal Dysphagia Dysphasia Diet Status: No Change Liquid Consistency and Strategies for Safe Swallow: Liquid Intake Recommendation: Thin Liquid Intake Strategies: Small Sips Solid Food Consistency: Dietary Recommendations: Chopped/Advanced (NDD3) Oral Medication Intake: Whole with Liquid Please contact the pharmacy regarding appropriate crushable or liquid drug formulations that are available whenever modified delivery is recommended. Compensatory Strategies and Precautions to be Taken for Safe Swallow: Sitting Upright (90 deg) Small Bites and Sips Alternate Liquids/Solids Rate of Ingestion Change Oral Check Supervision While Eating and Drinking for Safe Swallow: Direct Supervision (1:1) Swallowing Recommended Treatments: Compens. Strategy Educat. Recommendation for Speech: Inpatient Speech Therapy Frequency/Duration: Daily M-F Date Range for Service Req: Timeline to reassess: Technology Support Analyst Clinican/Clinical Fellow: No Supervisory Statement: I have reviewed and agree with the student/clinical fellow's documentation: N/A Speech Language Pathologist: Analia Slater M.A., CCC-BRUSH CUTTER
[2025-06-19 21:22] VITALS: BP 136/60; PULSE 97
[2025-06-20 00:04] VITALS: BP 151/65; PULSE 99
[2025-06-20 03:26] VITALS: RESP 18
[2025-06-20 08:00] VITALS: BP 130/66; PULSE 88; RESP 18; TEMP 36.4; O2SAT 99
[2025-06-20] MEDS: dilTIAZem HCL SR 90 MG CAP.ER.12H 180 MG PO ×2 (09:03→21:33)
[2025-06-20] MEDS: 0.9 % Sodium Chloride Flush 3 ML SYRINGE IVFLUSH ×3 (09:03→21:34)
[2025-06-20] MEDS: levETIRAcetam Oral Soln 500 MG/5 ML PO ×2 (09:03→21:33)
--- NOTE | 2025-06-20 10:43 | HO.PM.IMPN ---
Subjective Subjective Date of Service: 06/20/25 Interval History: sleepy, ROS limited by mental status Review of Systems Review of Systems: Yes Unobtainable due to mental status Physical Exam Vital Signs: Vital Signs: Last Vital Signs Temp 97.5 F 06/20/25 08:00 Pulse 88 06/20/25 08:00 Resp 18 06/20/25 08:00 BP 130/66 06/20/25 08:00 Pulse Ox 99 06/20/25 08:00 O2 Del Method Room Air 06/20/25 08:00 BMI result Body Mass Index 32.4 Gen: somnolent HEENT: sclera anicteric, moist mucus membranes Neck: supple Lungs: clear to auscultation bilaterally Heart: regular rate and rhythm, no murmurs Abd: soft, non-tender, non-distended Ext: no edema Skin: warm/well-perfused Neuro: sleepy but arousable Psych: impaired insight Objective Data Active Medications Acetaminophen (Acetaminophen 325 Mg Tablet) 650 mg PO Q6H PRN PRN Reason: Pain, Mild 1-3,fever,headache Albuterol Sulfate (Albuterol Sulfate 90 Mcg 8 Gm Inhaler) 2 puff INHALE Q6H PRN PRN Reason: Shortness Of Breath Or Wheezing Atorvastatin Calcium (Atorvastatin Calcium 20 Mg Tablet) 20 mg PO DAILY [facility] Last Admin: 06/20/25 09:02 Dose: 20 mg Documented By: MARLO Calcium Carbonate (Calcium Carbonate 750 Mg Tab.Chew) 750 mg PO Q4H PRN PRN Reason: Heartburn Cefuroxime Axetil (Cefuroxime Axetil 250 Mg Tablet) 250 mg PO Q12H [facility] Last Admin: 06/19/25 22:50 Dose: 250 mg Documented By: MARK Diltiazem HCl (Diltiazem Hcl Sr 90 Mg Cap.Er.12h) 180 mg PO BID [facility]; Protocol Last Admin: 06/20/25 09:03 Dose: 180 mg Documented By: MARLO Enoxaparin Sodium (Enoxaparin Sodium 40 Mg/0.4 Ml Syringe) 40 mg SUBCUT Q24H [facility] Last Admin: 06/20/25 09:11 Dose: 40 mg Documented By: MARLO Ergocalciferol (Ergocalciferol (Vitamin D2) 1,250 Mcg Capsule) 1,250 mcg PO [facility] Levetiracetam (Levetiracetam Oral Soln 500 Mg/5 Ml) 500 mg PO BID [facility] Last Admin: 06/20/25 09:03 Dose: 500 mg Documented By: MARLO Lisinopril (Lisinopril 40 Mg Tablet) 40 mg PO DAILY [facility]; Protocol Last Admin: 06/20/25 09:02 Dose: 40 mg Documented By: MARLO Magnesium Hydroxide (Milk Of Magnesia 30 Ml Oral.Susp) 30 ml PO DAILY PRN PRN Reason: Constipation Melatonin (Melatonin 3 Mg Tablet) 6 mg PO BEDTIME PRN PRN Reason: Insomnia Last Admin: 06/17/25 20:56 Dose: 6 mg Documented By: BUSSIDIMAS Mirabegron (Mirabegron 25 Mg Tab.Er.24h) 25 mg PO DAILY [facility] Last Admin: 06/20/25 09:02 Dose: 25 mg Documented By: MARLO Nystatin (Nystatin Powder 15 Gm Bottle) 1 appl TOPICAL TID [facility]; Protocol Sodium Chloride (0.9 % Sodium Chloride Flush 3 Ml Syringe) 3 ml IVFLUSH QSHIFT [facility] Last Admin: 06/20/25 09:03 Dose: 3 ml Documented By: MARLO Labs 06/17/25 04:44 06/17/25 04:44 Assessment and Plan (1) Acute UTI: Status: Acute Plan d4 for 89yo F with HTN, HLD, asthma, CKD3, hx SAH, OAB, MNG, hx AAA s/p repair; presenting with AMS; admitted for encephalopathy due to UTI UTI: ceftriaxone 06/16-, BCx negative, UCx contaminated, change to cefdinir 06/18-06/23 acute encephalopathy due to infection: treat as above, improving CKD3: SCr baseline HTN: lisinopril, diltiazem seizures: levetiracetam OAB: mirabegron VTE ppx: enoxaparin dispo: STR per PT In my clinical judgment, the patient requires continued inpatient hospitalization for the following reasons: placement Total time managing care of this patient today: 35 minutes. Quality Stroke Does the patient have a stroke diagnosis?: Yes Reason for No Anti-thrombotic by Day Two: N/A - Med Ordered VTE Prior VTE?: No VTE Risk Level:: Medical - moderate - high VTE Device Contraindication: Treatment Not Indicated VTE Drug Contraindication: N/A - Med Ordered
--- NOTE | 2025-06-20 13:12 | MHC.CM.PN ---
EMR REVIEWED, P.T. HAD RECOMMENDED STR, [facility] AWAITING [facility] AUTH, CM WILL CONT TO FOLLOW.
[2025-06-20 15:22] VITALS: BP 109/51; PULSE 68; RESP 12; TEMP 36.6; O2SAT 97
[2025-06-20 20:00] VITALS: BP 134/61; PULSE 74; RESP 17; TEMP 35.8; O2SAT 98
[2025-06-21 03:51] VITALS: BP 130/63; PULSE 72; RESP 18; TEMP 36.1; O2SAT 93
[2025-06-21 07:58] VITALS: BP 166/70; PULSE 69; RESP 18; TEMP 36.7; O2SAT 97
[2025-06-21] MEDS: levETIRAcetam Oral Soln 500 MG/5 ML PO ×2 (08:56→19:47)
[2025-06-21] MEDS: dilTIAZem HCL SR 90 MG CAP.ER.12H 180 MG PO ×2 (08:56→19:47)
[2025-06-21] MEDS: 0.9 % Sodium Chloride Flush 3 ML SYRINGE IVFLUSH ×3 (09:01→19:56)
--- NOTE | 2025-06-21 14:09 | P.PNIM_ITS ---
Subjective Subjective Date of Service: 06/21/25 Interval History: No acute issues overnight. Remains pleasantly confused Review of Systems Unable to obtain Physical Exam 2 Vital Signs: Vital Signs: Last Vital Signs Temp 98.0 F 06/21/25 07:58 Pulse 69 06/21/25 07:58 Resp 18 06/21/25 07:58 BP 166/70 H 06/21/25 07:58 Pulse Ox 97 06/21/25 07:58 O2 Del Method Room Air 06/21/25 07:58 BMI result Body Mass Index 32.4 Const: Other: No acute distress Resp: Other: Clear to auscultation bilaterally no rales rhonchi or wheezes Cardio: Other: No S4; positive S1-S2; no S3 murmurs rubs or gallops GI: Other: Soft nontender nondistended normoactive bowel sounds Extrem: Other: No edema bilaterally Objective Data Active Medications Acetaminophen (Acetaminophen 325 Mg Tablet) 650 mg PO Q6H PRN PRN Reason: Pain, Mild 1-3,fever,headache Albuterol Sulfate (Albuterol Sulfate 90 Mcg 8 Gm Inhaler) 2 puff INHALE Q6H PRN PRN Reason: Shortness Of Breath Or Wheezing Atorvastatin Calcium (Atorvastatin Calcium 20 Mg Tablet) 20 mg PO DAILY [facility] Last Admin: 06/21/25 08:56 Dose: 20 mg Documented By: MARLO Calcium Carbonate (Calcium Carbonate 750 Mg Tab.Chew) 750 mg PO Q4H PRN PRN Reason: Heartburn Cefuroxime Axetil (Cefuroxime Axetil 250 Mg Tablet) 250 mg PO Q12H [facility] Last Admin: 06/21/25 11:46 Dose: 250 mg Documented By: MARLO Diltiazem HCl (Diltiazem Hcl Sr 90 Mg Cap.Er.12h) 180 mg PO BID [facility]; Protocol Last Admin: 06/21/25 08:56 Dose: 180 mg Documented By: MARLO Enoxaparin Sodium (Enoxaparin Sodium 40 Mg/0.4 Ml Syringe) 40 mg SUBCUT Q24H [facility] Last Admin: 06/21/25 10:16 Dose: 40 mg Documented By: MARLO Ergocalciferol (Ergocalciferol (Vitamin D2) 1,250 Mcg Capsule) 1,250 mcg PO SA [facility] Last Admin: 06/20/25 15:17 Dose: 1,250 mcg Documented By: MARLO Levetiracetam (Levetiracetam Oral Soln 500 Mg/5 Ml) 500 mg PO BID [facility] Last Admin: 06/21/25 08:56 Dose: 500 mg Documented By: MARLO Lisinopril (Lisinopril 40 Mg Tablet) 40 mg PO DAILY [facility]; Protocol Last Admin: 06/21/25 08:56 Dose: 40 mg Documented By: MARLO Magnesium Hydroxide (Milk Of Magnesia 30 Ml Oral.Susp) 30 ml PO DAILY PRN PRN Reason: Constipation Melatonin (Melatonin 3 Mg Tablet) 6 mg PO BEDTIME PRN PRN Reason: Insomnia Last Admin: 06/17/25 20:56 Dose: 6 mg Documented By: BUSSIEL Mirabegron (Mirabegron 25 Mg Tab.Er.24h) 25 mg PO DAILY [facility] Last Admin: 06/21/25 08:56 Dose: 25 mg Documented By: MARLO Nystatin (Nystatin Powder 15 Gm Bottle) 1 appl TOPICAL TID [facility]; Protocol Last Admin: 06/21/25 09:01 Dose: 1 appl Documented By: MARLO Sodium Chloride (0.9 % Sodium Chloride Flush 3 Ml Syringe) 3 ml IVFLUSH QSHIFT [facility] Last Admin: 06/21/25 09:01 Dose: 3 ml Documented By: MARLO Labs 06/17/25 04:44 06/17/25 04:44 Assessment and Plan (1) Acute UTI: Status: Acute (2) CKD (chronic kidney disease) stage 3, GFR 30-59 ml/min: Status: Acute Plan 89yo F with HTN, HLD, asthma, CKD3, hx SAH, OAB, MNG, hx AAA s/p repair; presenting with AMS; admitted for encephalopathy due to UTI 1.UTI -ceftriaxone 06/16-, BCx negative, UCx contaminated, cefdinir 06/18-06/23 -acute encephalopathy due to infection....treat as above -follow up clinically 2.CKD3 -at baseline -follow renals/divalent 3.HTN -acceptable control on current therapies -adjust as indicated 4.Seizures -stable and well compensated -continue outpatient therapies enoxaparin Full code In my clinical judgment, the patient requires continued inpatient hospitalization for the following reasons: placement Quality Stroke Does the patient have a stroke diagnosis?: Yes Reason for No Anti-thrombotic by Day Two: N/A - Med Ordered VTE Prior VTE?: No VTE Risk Level:: Medical - moderate - high VTE Device Contraindication: Treatment Not Indicated VTE Drug Contraindication: N/A - Med Ordered
[2025-06-21 16:00] VITALS: BP 142/65; PULSE 80; RESP 16; TEMP 36.6; O2SAT 94
[2025-06-21 19:47] VITALS: BP 115/47; PULSE 77
--- NOTE | 2025-06-22 02:07 | PC.NURSE ---
When going to administer patient's 0000 scheduled medication, patient holding blanket over her face. Pull Up Hand at bedside to discuss why she has the blanket over her face. Patient not answering questions. Addressed the medication and its importance, but patient remains confused and refuses to take the medication. Pt stated I don't want to take it (the medication).
[2025-06-22 03:21] VITALS: BP 130/58; PULSE 72; RESP 17; TEMP 36.8; O2SAT 95
[2025-06-22 06:49] LABS: MANUAL DIFF FLAG NO
[2025-06-22 06:53] LABS: Hematocrit 46.3 % (37.0-47.0); Hemoglobin 14.7 g/dl (12.0-16.0); Imm Gran Abs Auto 0.02 X10*3/uL (0.00-0.03); Imm Gran Pct Auto 0.3 % (0.0-0.4); Lymphocytes Absolute Auto 2.7 X10*3/uL (1.2-4.9); Mean Corpuscular HGB Conc 31.7 g/dl (31.0-35.0); Mean Corpuscular Hemoglobin 29.1 pg (27.0-33.0); Mean Corpuscular Volume 91.7 fL (80.0-98.0); NRBC Abs Auto 0.000 X10*3/uL (0.0-0.012); NRBC Pct Auto 0.0 /100WBC (0.0-0.2); Platelet Count 221 X10*3/uL (160-400); Red Blood Count 5.05 X10*6/uL (4.20-5.50); White Blood Count 7.0 X10*3/uL (4.8-10.8)
[2025-06-22 07:54] VITALS: BP 124/75; PULSE 89; RESP 12; TEMP 36.1; O2SAT 100
[2025-06-22 08:33] LABS: Alanine Aminotransferase 20 U/L (0-31); Albumin Level 3.6 g/dL (3.5-5.0); Alkaline Phosphatase 71 U/L (39-117); Anion Gap 11 (12-20); Aspartate Amino Transferase 35 U/L (5-31); Blood Urea Nitrogen 20 mg/dL (9-16); Calcium 9.1 mg/dL (8.4-10.2); Carbon Dioxide 27 mmol/L (22-29); Chloride 109 mmol/L (96-108); Creatinine Clr Calc Pharmacy 41.1; Estimated Glomerular Filt Rate 52; Potassium 4.0 mmol/L (3.3-5.1); Sodium 143 mmol/L (135-145); Total Protein 7.3 g/dL (6.5-8.0)
[2025-06-22] MEDS: 0.9 % Sodium Chloride Flush 3 ML SYRINGE IVFLUSH ×2 (09:14→14:15)
[2025-06-22] MEDS: dilTIAZem HCL SR 90 MG CAP.ER.12H 180 MG PO (09:21)
[2025-06-22] MEDS: levETIRAcetam Oral Soln 500 MG/5 ML PO (09:21)
--- NOTE | 2025-06-22 09:35 | PC.NURSE ---
Patient is behavioral refusing to respond to questioning even with lang interpreter, combative during care as evidenced by grabbing at employee clothing and pinching skin, refusing to follow commands as evidenced by commands to open eyes and patient clenched eyes shut, refusing to eat and takes meds as evidenced by patient clenching mouth shut when approached with straws or spoons. Son came to bedside and was able to get patient to eat some yogurt and take medications with difficulty.
--- NOTE | 2025-06-22 13:07 | MHC.CM.PN ---
Patient is discharged today. Mary has received auth. She is accepted under longterm care. She will transport via BLS. 3:30 pm cotton picker is set up with [facility]. He family has been notified of the transfer time. Spoke with Neema via sign language interpreter. She stated that she would notified
--- NOTE | 2025-06-22 13:15 | PM.DS ---
DS: Providers Provider Date of Service: 06/22/25 Date of admission: 06/17/25 00:30 Date of discharge: 06/22/25 Primary care physician: Roslyn Rodriguez MD DS: Diagnosis Discharge Diagnosis (1) Acute UTI: Status: Acute (2) CKD (chronic kidney disease) stage 3, GFR 30-59 ml/min: Status: Acute DS: Summary Hospital Course Hospital Course: 89-year-old female with a past medical history of HTN, HLD, asthma, CKD, HX subarachnoid hematoma, overactive bladder, multinodular goiter, history of aortic aneurysm status post repair; presented to the hospital today with a chief complaint of altered mental status. Patient is pleasantly confused. Most of the history obtained from the records and the staff. Reportedly patient has been confused over a week. Has been talking to relatives. Over the past couple days patient appeared to be more weak and tired. Has been having decreased appetite. Denies having any fevers. Denies patient complaining of any pain. Patient family also mentioned that patient had a fall few days ago while she was trying to kneel and pray. Denies any loss of consciousness. Hospital Course Patient admitted to general medical floor and started on ceftriaxone for active urinary sediment noted in ER. Culture ultimately demonstrated [id number] mixed fredy. Given the patient's mental status has returned to baseline per family we will complete this regimen. Seen by Physical therapy and deemed appropriate for short-term rehab. At this point in time she is medically acceptable for discharge Time Attestation Discharge Coordination Time (in mins): 35 Quality: Safe Use of Opioids Does Pt have an Active Cancer Diagnosis on the Problem List?: No Quality: Stroke Does the patient have a stroke diagnosis?: No Physical Exam Vital Signs: Vital Signs: Last Vital Signs Temp 97.0 F 06/22/25 07:54 Pulse 89 06/22/25 07:54 Resp 12 06/22/25 07:54 BP 124/75 06/22/25 07:54 Pulse Ox 100 06/22/25 07:54 O2 Del Method Room Air 06/22/25 07:54 BMI result Body Mass Index 32.4 DS: Data Data Completed and Pending Completed studies during hospitalization [Text1]: Procedures Drainage of Gallbladder with Drainage Device, Percutaneous Approach (06/02/24) Labs on day of discharge: Laboratory Results - last 24 hr 06/22/25 06/22/25 05:51 08:07 WBC 7.0 RBC 5.05 Hgb 14.7 Hct 46.3 MCV 91.7 MCH 29.1 MCHC 31.7 RDW 13.8 Plt Count 221 MPV 11.9 Immature Gran % (Auto) 0.3 Neut % (Auto) 48.4 Lymph % (Auto) 38.2 [place] % (Auto) 10.2 Eos % (Auto) 2.3 Baso % (Auto) 0.6 Lymph # (Auto) 2.7 [place] # (Auto) 0.7 Eos # (Auto) 0.2 Baso # (Auto) 0.0 Abs Immat Gran (auto) 0.02 Absolute Neuts (auto) 3.4 Absolute Nucleated RBC 0.000 Nucleated RBC % (auto) 0.0 Sodium 143 Potassium 4.0 Chloride 109 H Carbon Dioxide 27 Anion Gap 11 L BUN 20 H Creatinine 1.00 Estim Creat Clear Calc 41.1 Estimated GFR 52 Fasting Glucose 87 Calcium 9.1 Total Bilirubin 0.3 AST 35 H ALT 20 Alkaline Phosphatase 71 Total Protein 7.3 Albumin 3.6 Discharge Plan Discharge Anticipated Discharge Date/Time: 06/22/25 13:10 Patient Disposition: er [facility] Discharge Diagnosis: Toxic metabolic encephalopathy [facility] [Outside] - 1 Day Referral Note: SHORT TERM REHAB Roslyn Rodriguez MD [Primary Care Provider, Internal Medicine] - 1 Week Discharge Medications: New cefuroxime axetil 250 mg Tablet 250 mg PO Q12H Qty: 6 0RF Continued furosemide 40 mg tablet 40 mg PO DAILY lisinopril 40 mg tablet 40 mg PO DAILY atorvastatin 20 mg tablet 20 mg PO DAILY diltiazem HCl 300 mg capsule,extended release 24 hr 300 mg PO DAILY docusate sodium 100 mg capsule 100 mg PO BID mirabegron [Myrbetriq] 25 mg tablet extended release 24 hr 25 mg PO DAILY levetiracetam 500 mg tablet 500 mg PO BID ergocalciferol (vitamin D2) 1,250 mcg (50,000 unit) capsule 1,250 mcg PO SA albuterol sulfate [Ventolin HFA] 90 mcg/actuation HFA aerosol inhaler 2 inh inhalation Q6H PRN (Reason: Shortness Of Breath Or Wheezing) Discharge Orders: Discharge Order (Routine); Ordered 06/22/25 Ordered By: Marshall Rodriguez Diet: Advance to usual diet Activity on Discharge: As tolerated Stand Alone Forms: Patient Portal Discharge page Print Language: Arabic Care Plan Goals: Complete course of Ceftin 250 b.i.d. for 3 days Health Concerns: All meds as outlined on transfer summary Plan of Treatment: As per receiving facility Assessment: See discharge summary
--- NOTE | 2025-06-22 14:18 | MHC.SLORD ---
Speech Language Pathology Order Status: Pt unable to follow simple cues, lucid this afternoon with repetitive behaviors (licking corner of blanket and wiping eyes). Pt had eyes open, was verbalizing without meaningful speech. RN and MD notified. HEALTH AND HUMAN PERFORMANCE PROFESSOR to assess PO tolerance as indicated during pt hospital stay.
[2025-06-22 15:27] VITALS: BP 127/66; PULSE 89; RESP 18; TEMP 37.1; O2SAT 97
== END 2025-06-22 15:35 | disposition skilled nursing facility (03) | DRG 689 ==
LOC: HO.ED 06-17 00:26 → HO.EDOVER 06-17 00:36 → HO.S3 06-17 16:54
PROVIDERS: Admitting Provider Hospitalist; Emergency Provider Emergency Medicine; PCP Internal Medicine; Visit Provider Hospitalist
DX: N39.0 Urinary tract infection, site not specified (principal); G92.8 Other toxic encephalopathy; I12.9 Hypertensive chronic kidney disease with stage 1 through stage 4 chronic kidney disease, or unspecified chronic kidney disease; N32.81 Overactive bladder; N18.30 Chronic kidney disease, stage 3 unspecified; Z20.822 Contact with and (suspected) exposure to COVID-19; Z79.899 Other long term (current) drug therapy
CPT/HCPCS: 36415; 70450; 71045; 72125; 80053; 80307; 81001; 83605; 83735; 84484; 85025; 87040; 87086; 87502; 87635; 90656; 92526; 92610; 93005; 97110; 97162; 97530; 99285; J0696; J1644; J1650

== ENCOUNTER → 2025-06-16 18:40 | Outpatient (BNV) | payer OTHER, SELFPAY | PROVIDERS: Admitting Provider Hospitalist; Emergency Provider Emergency Medicine; PCP Internal Medicine; Visit Provider Internal Medicine Cardiovascular Disease | DX: I45.10 Unspecified right bundle-branch block (principal) | CPT/HCPCS: 93010 ==

== ENCOUNTER → 2025-06-16 21:25 | Outpatient (BNV) | payer OTHER, SELFPAY | PROVIDERS: Emergency Provider Emergency Medicine; PCP Internal Medicine; Visit Provider Radiology Diagnostic Radiology | DX: R41.82 Altered mental status, unspecified (principal); R50.9 Fever, unspecified; W19.XXXA Unspecified fall, initial encounter | CPT/HCPCS: 70450; 71045; 72125 ==

== ENCOUNTER → 2025-06-17 00:30 | Outpatient (BNV) | payer OTHER, SELFPAY | PROVIDERS: Admitting Provider Hospitalist; Emergency Provider Emergency Medicine; PCP Internal Medicine; Visit Provider Family Medicine | DX: N39.0 Urinary tract infection, site not specified (principal); N18.30 Chronic kidney disease, stage 3 unspecified | CPT/HCPCS: 99232; 99233 ==